=== PATIENT | male | born 1990 | race Hispanic/Latino ===

== ENCOUNTER 2018-05-20 17:13 | Emergency (ER) | payer SELFPAY ==
[~2018-05-20 17:13] MED LIST: ISOVUE-370 76%-LOCM 1 ML ONE; Iopamidol 370 76% 50 ML VIAL FS ONE
[2018-05-20] MEDS ORDERED: Metoclopramide HCl 10 MG/2 ML VIAL ONE (17:29)
[2018-05-20 18:06] LABS: #Lymphocytes 0.9 thou/uL (1.20-3.40); #Monocytes 0.3 thou/uL (0.11-0.59); #Neutrophils 9.9 thou/uL (1.40-6.50); %Eosinophils 0.1 % (0.0-10.0); %Lymphocytes 7.9 % (21.0-51.0); %Monocytes 2.7 % (0.0-10.0); %Neutrophils 89.3 % (42.0-75.0); Hemoglobin 12.5 g/dL (14.0-18.0); Mean Corpuscular HGB CONC 34.4 g/dL (32.0-36.0); Mean Corpuscular Hemoglobin 29.8 pg (27.0-31.0); Mean Corpuscular Volume 86.5 fL (78.0-98.0); Mean Platelet Volume 7.5 fL (7.4-10.4); Platelet Count 183 thou/uL (130-400); RBC Distribution Width 12.3 % (11.5-14.5); Red Blood Cell (RBC) Count 4.19 mill/uL (4.70-6.10); White Blood Cell (WBC) Count 11.1 thou/uL (4.8-10.8)
[2018-05-20 18:25] LABS: ALT (SGPT) 13 U/L (8-55); AST (SGOT) 12 U/L (5-34); Albumin 3.7 g/dL (3.5-5.0); Alkaline Phosphatase 91 U/L (40-150); Anion Gap 14 mmol/L (10-20); BUN (Urea Nitrogen) 43 mg/dL (8.9-20.6); Bilirubin, Total 0.6 mg/dL (0.2-1.2); Calc. Creatinine Clearance 0 mL/min (70-130); Calcium 8.9 mg/dL (7.8-10.44); Carbon Dioxide 24 mmol/L (22-29); Chloride 103 mmol/L (98-107); Estimated GFR-MDRD 90; Glucose 323 mg/dL (70-105); Lipase 10 U/L (8-78); Magnesium 1.9 mg/dL (1.6-2.6); Potassium 3.7 mmol/L (3.5-5.1); Protein, Total 6.7 g/dL (6.0-8.3); Sodium 137 mmol/L (136-145)
[2018-05-20] MEDS ORDERED: Ondansetron HCl/PF 4 MG/2 ML Vial ONE (18:31)
[2018-05-20 18:43] LABS: Base Excess-Venous 0.2 mmol/L (0 (+/- 2.5)); Bicarbonate (HCO3v) 23.4 mmol/L (1.0-85.0); CO2 Tension (PvCO2) 32.6 mmHg (41.0-51.0); Calcium, Ionized 1.04 mmol/L (1.12-1.32); Hemoglobin - Calc 12.3 g/dL (12.0-18.0); O2 Tension (PvO2) 93.2 mmHg (35.0-45.0); Potassium 3.7 mmol/L (3.4-4.7); T. Carbon Dioxide 24.4 mmol/L (1.0-85.0); pH (Venous) 7.465 (7.35-7.45); vO2 Saturation-calc 97.8 % (94-98)
[2018-05-20] MEDS ORDERED: Fentanyl 100 MCG/2 ML VIAL ONE (18:48)
--- NOTE | 2018-05-20 20:26 | CT ---
CT ABDOMEN AND PELVIS WITH IV CONTRAST: 05/20/18 Multiple axial tomograms obtained through the abdomen and pelvis with IV enhancement. Oral contrast w as administered. INDICATIONS: Abdominal pain. Right lower quadrant pain. The lung bases are clear. Liver, spleen and pancreas unremarkable. Adrenal glands normal. Kidneys unremarkable. There is mild distention of proximal jejunal loops. The more distal small bowel loops are normal darius lexa. The contrast opacifies the mid small bowel but does not opacify the distal small bowel or cecum. The appendix is identified and appears unremarkable. No evidence of appendicitis. The urinary bladder is distended. Prostate is mildly prominent for age. No adenopathy identified. IMPRESSION: 1. Nonspecific small bowel distention. This could represent enteritis or other nonspecific etiol ogy. 2. No evidence of appendicitis. 3. Urinary bladder distention. POS: [facility]
== END 2018-05-20 21:11 | disposition home or self-care (01) ==
LOC: ERS 17:13
DX: K52.9 Noninfective gastroenteritis and colitis, unspecified (principal); E10.9 Type 1 diabetes mellitus without complications; Z79.4 Long term (current) use of insulin
CPT/HCPCS: 36415; 36416; 74177; 80053; 82010; 82330; 82803; 83605; 83690; 83735; 85025; 96361; 96365; 96375; J2270; J2405; J2765; J3010

== ENCOUNTER 2018-09-25 18:58 | Emergency (ER) | payer SELFPAY ==
[~2018-09-25 18:58] MED LIST changes: -Iopamidol 370 76% 50 ML VIAL FS ONE
[2018-09-25 19:17] LABS: #Basophils 0.1 thou/uL (0.0-0.2); #Eosinphils 0.1 thou/uL (0.0-0.7); #Lymphocytes 1.5 thou/uL (1.20-3.40); #Monocytes 0.4 thou/uL (0.11-0.59); #Neutrophils 6.5 thou/uL (1.40-6.50); %Basophils 0.7 % (0.0-1.0); %Eosinophils 1.2 % (0.0-10.0); %Lymphocytes 17.6 % (21.0-51.0); %Monocytes 4.3 % (0.0-10.0); %Neutrophils 76.2 % (42.0-75.0); Mean Corpuscular HGB CONC 31.9 g/dL (32.0-36.0); Mean Corpuscular Hemoglobin 28.6 pg (27.0-31.0); Mean Corpuscular Volume 89.8 fL (78.0-98.0); Mean Platelet Volume 7.1 fL (7.4-10.4); Platelet Count 246 thou/uL (130-400); RBC Distribution Width 11.4 % (11.5-14.5); Red Blood Cell (RBC) Count 4.19 mill/uL (4.70-6.10); White Blood Cell (WBC) Count 8.5 thou/uL (4.8-10.8)
[2018-09-25 19:31] LABS: ALT (SGPT) 12 U/L (8-55); AST (SGOT) 17 U/L (5-34); Albumin 4.1 g/dL (3.5-5.0); Alkaline Phosphatase 84 U/L (40-150); Anion Gap 12 mmol/L (10-20); BUN (Urea Nitrogen) 20 mg/dL (8.9-20.6); Bilirubin, Total 0.4 mg/dL (0.2-1.2); Calc. Creatinine Clearance 0 mL/min (70-130); Calcium 9.4 mg/dL (7.8-10.44); Carbon Dioxide 25 mmol/L (22-29); Chloride 105 mmol/L (98-107); Estimated GFR-MDRD Greater than 90; Globulin 3.7 g/dL (2.4-3.5); Glucose 118 mg/dL (70-105); Lipase 27 U/L (8-78); Potassium 4.1 mmol/L (3.5-5.1); Protein, Total 7.8 g/dL (6.0-8.3); Sodium 138 mmol/L (136-145)
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
== END 2018-09-25 22:51 | disposition home or self-care (01) ==
LOC: ERS 18:58
DX: S22.42XA Multiple fractures of ribs, left side, initial encounter for closed fracture (principal); S90.32XA Contusion of left foot, initial encounter; E10.9 Type 1 diabetes mellitus without complications; V43.52XA Car driver injured in collision with other type car in traffic accident, initial encounter
CPT/HCPCS: 70450; 71260; 72125; 74177; 80053; 83690; 85025; 86850; 86900; 86901; 94760; 96360; 96361; G0390

== ENCOUNTER 2018-10-06 15:32 | Outpatient (CLI) | payer SELFPAY ==
--- NOTE | 2018-10-06 17:01 | RAD ---
PA AND LATERAL CHEST X-RAY 10/06/18 HISTORY: Closed fracture of multiple ribs on left side. COMPARISON: CT thorax on 09/25/18. FINDINGS: There is a nondisplaced fracture involving the posterior left 12th rib. Fractures involving the left posterior 10th and 11th ribs are less well delineated on this chest x-ray. The cardiac silhouette and pulmonary vasculature are within normal limits. The lungs are clear. No pneumothorax or pleural effu juanita is seen. IMPRESSION: 1. No acute cardiopulmonary process. 2. Nondisplaced posterior left 12th rib fracture. Fractures involving the left 10th and 11th rib s are less well delineated on this exam. POS: [facility]
== END 2018-10-06 15:33 | disposition home or self-care (01) ==
LOC: RAD 15:32
PROVIDERS: ATTEND Physician Assistant
DX: S22.42XD Multiple fractures of ribs, left side, subsequent encounter for fracture with routine healing (principal)
CPT/HCPCS: 71046

== ENCOUNTER 2019-01-31 22:58 | Emergency (ER) | payer SELFPAY ==
[2019-01-31 23:41] LABS: Base Excess-Venous 0.9 mmol/L (-2.0 to 3.0); Bicarbonate (HCO3v) 24.5 mmol/L (22.0-28.0); CO2 Tension (PvCO2) 34.8 mmHg (40.0-50.0); Calcium, Ionized 1.13 mmol/L (See Comments:); Chloride 112 mmol/L (98-107); Hemoglobin - Calc 12.7 g/dL (14.0-18.0); O2 Tension (PvO2) 108.3 mmHg (35.0-45.0); Potassium 3.2 mmol/L (3.5-5.1); Sodium 144 mmol/L (138-145); T. Carbon Dioxide 25.5 mmol/L (22.0-28.0); pH (Venous) 7.455 (7.320-7.430); vO2 Saturation-calc 98.5 % (60.0-85.0)
[2019-01-31 23:48] LABS: #Lymphocytes 1.3 thou/uL (1.20-3.40); #Monocytes 0.3 thou/uL (0.11-0.59); #Neutrophils 8.7 thou/uL (1.40-6.50); %Basophils 0.3 % (0.0-1.0); %Eosinophils 0.2 % (0.0-10.0); %Lymphocytes 12.8 % (21.0-51.0); %Monocytes 2.4 % (0.0-10.0); %Neutrophils 84.3 % (42.0-75.0); Hemoglobin 11.9 g/dL (14.0-18.0); Mean Corpuscular HGB CONC 33.4 g/dL (32.0-36.0); Mean Corpuscular Hemoglobin 28.8 pg (27.0-31.0); Mean Corpuscular Volume 86.4 fL (78.0-98.0); Mean Platelet Volume 7.3 fL (7.4-10.4); Platelet Count 233 thou/uL (130-400); RBC Distribution Width 12.1 % (11.5-14.5); Red Blood Cell (RBC) Count 4.14 mill/uL (4.70-6.10); White Blood Cell (WBC) Count 10.3 thou/uL (4.8-10.8)
--- NOTE | 2019-01-31 23:54 | RAD ---
AP CHEST: History: Epigastric and abdominal pain. Date: 01-31-19 Comparison: 10-06-18 FINDINGS: AP chest demonstrates the lungs to be well aerated. No evidence of active intrathoracic disease seen. No evidence of effusions, pneumonia, or pneumothorax seen. IMPRESSION: Unremarkable AP chest. POS: [facility]
[2019-01-31] MEDS ORDERED: Metoclopramide 10 MG/10 ML UDCUP ONE (23:55)
[2019-01-31] MEDS ORDERED: Metoclopramide HCl 10 MG/2 ML VIAL ONE (23:56)
[2019-02-01 00:05] LABS: Phosphorus 2.4 mg/dL (2.3-4.7)
[2019-02-01 00:05] LABS: Acetaminophen Less than 6.0 mcg/mL (10.0-30.0); Alcohol Less than 10 mg/dL (Less than 10); Salicylate Less than 8.0 mg/dL (15.0-30.0)
[2019-02-01 00:06] LABS: ALT (SGPT) 18 U/L (8-55); AST (SGOT) 18 U/L (5-34); Albumin 4.1 g/dL (3.5-5.0); Alkaline Phosphatase 116 U/L (40-150); Anion Gap 14 mmol/L (10-20); BUN (Urea Nitrogen) 19 mg/dL (8.9-20.6); Bilirubin, Total 0.6 mg/dL (0.2-1.2); Calc. Creatinine Clearance 0 mL/min (70-130); Calcium 9.4 mg/dL (7.8-10.44); Carbon Dioxide 23 mmol/L (22-29); Chloride 107 mmol/L (98-107); Estimated GFR-MDRD Greater than 90; Globulin 3.4 g/dL (2.4-3.5); Glucose 234 mg/dL (70-105); Lipase 8 U/L (8-78); Potassium 3.3 mmol/L (3.5-5.1); Protein, Total 7.5 g/dL (6.0-8.3); Sodium 141 mmol/L (136-145)
[2019-02-01 01:03] LABS: Bilirubin Negative (Negative); Blood, Urine Negative (Negative); Clarity CLEAR (Clear); Glucose, Urine (Dipstick) >=1000 mg/dL (Negative); Leukocyte Negative (Negative); Nitrite Negative (Negative); Protein, Urine (Dipstick) Negative (Neg-Trace); Specific Gravity, Urine 1.022 (1.002-1.036); Urobilinogen 0.2 mg/dL (0.2-1.0); pH, Urine 6.5 (5.0-9.0)
[2019-02-01 01:10] LABS: Medtox Reader # READER 4
[2019-02-01 01:11] LABS: Amphetamine Not Detected (NotDetected); Barbiturates Screen Not Detected (NotDetected); Benzodiazepine Screen Not Detected (NotDetected); Cocaine Metabolite Screen Not Detected (NotDetected); Medtox Control Line Valid? VALID (VALID); Methadone Not Detected (NotDetected); Methamphetamine Not Detected (NotDetected); Opiate Screen Not Detected (NotDetected); Oxycodone Screen Not Detected (NotDetected); Phencyclidine (PCP) Not Detected (NotDetected); THC/Cannabinoid Screen Not Detected (NotDetected); Tricyclic Screen Not Detected (NotDetected)
[2019-02-01] MEDS ORDERED: Morphine 4 MG/ML VIAL ONE (01:24)
[2019-02-01] MEDS ORDERED: Mag-Al 1200 mg/1200 mg/30 ML UDCUP ONE (01:37)
[2019-02-01] MEDS ORDERED: Lidocaine Viscous Sol 2% 15 ml UD Cup ONE (01:37)
== END 2019-02-01 02:56 | disposition home or self-care (01) ==
LOC: ERS 22:58
DX: R10.13 Epigastric pain (principal); R11.2 Nausea with vomiting, unspecified; E10.9 Type 1 diabetes mellitus without complications; Z79.4 Long term (current) use of insulin
CPT/HCPCS: 36415; 36416; 71045; 80053; 80306; 80307; 81003; 82010; 82330; 82803; 83690; 83735; 84100; 84484; 85025; 87086; 93005; 96360; 96374; 96375; J2270; J2765; J8597

== ENCOUNTER 2019-02-06 20:49 | Emergency (ER) | payer SELFPAY ==
[2019-02-06] MEDS ORDERED: Adacel (T-DAP) 0.5 ML SYRINGE ONE (21:35)
[2019-02-06] MEDS ORDERED: Ciprofloxacin 500 MG TAB ONE (22:26)
[2019-02-06] MEDS ORDERED: Lidocaine 1% (PF) 30 ML VIAL ONE (22:29)
[2019-02-06] MEDS ORDERED: cefTRIAXone\\ROCEPHIN 1 GM VIAL ONE (22:29)
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
== END 2019-02-06 23:07 | disposition home or self-care (01) ==
LOC: ERS 20:49
DX: S91.331A Puncture wound without foreign body, right foot, initial encounter (principal); E10.9 Type 1 diabetes mellitus without complications; W21.31XA Struck by shoe cleats, initial encounter
CPT/HCPCS: 90471; 90715; 96372; J0696; J2001

== ENCOUNTER 2019-02-08 08:29 | Emergency (ER) | payer OTHER, SELFPAY | END 2019-02-08 09:22 | disposition home or self-care (01) | LOC: ERS 08:29 | DX: Z48.817 Encounter for surgical aftercare following surgery on the skin and subcutaneous tissue (principal); E10.9 Type 1 diabetes mellitus without complications; Z79.899 Other long term (current) drug therapy | CPT/HCPCS: 99281 ==

== ENCOUNTER 2019-03-27 23:06 | Emergency (ER) | payer OTHER, SELFPAY ==
[2019-03-27] MEDS ORDERED: HYDROcodone/Acetaminophen 10/325 mg Tablet ONE (23:46)
--- NOTE | 2019-03-27 23:48 | RAD ---
Exam: 3 views lumbar spine HISTORY: Pain. Started 2 days ago. Pain is exacerbated by walking and moving. FINDINGS: 5 lumbar type vertebral bodies. Vertebral body height is maintained. No fracture. Disc spac e heights are preserved. No spondylolisthesis. No spondylolysis. IMPRESSION: Unremarkable 3 views lumbar spine. If there is concern, nonemergent MRI of the lumbar spi ne.
[2019-03-28 00:55] LABS: Bilirubin Negative (Negative); Blood, Urine Negative (Negative); Clarity CLEAR (Clear); Glucose, Urine (Dipstick) >=1000 mg/dL (Negative); Leukocyte Negative (Negative); Nitrite Negative (Negative); Protein, Urine (Dipstick) Negative (Neg-Trace); Specific Gravity, Urine 1.036 (1.002-1.036); Urobilinogen 0.2 mg/dL (0.2-1.0)
[2019-03-28 00:57] LABS: #Monocytes 0.6 thou/uL (0.11-0.59); #Neutrophils 9.6 thou/uL (1.40-6.50); %Basophils 0.1 % (0.0-1.0); %Eosinophils 0.3 % (0.0-10.0); %Lymphocytes 8.7 % (21.0-51.0); %Monocytes 5.7 % (0.0-10.0); %Neutrophils 85.3 % (42.0-75.0); Hemoglobin 10.7 g/dL (14.0-18.0); Mean Corpuscular HGB CONC 32.5 g/dL (32.0-36.0); Mean Corpuscular Hemoglobin 28.2 pg (27.0-31.0); Mean Corpuscular Volume 86.6 fL (78.0-98.0); Mean Platelet Volume 7.1 fL (7.4-10.4); Platelet Count 249 thou/uL (130-400); RBC Distribution Width 11.6 % (11.5-14.5); Red Blood Cell (RBC) Count 3.79 mill/uL (4.70-6.10); White Blood Cell (WBC) Count 11.3 thou/uL (4.8-10.8)
[2019-03-28 01:18] LABS: ALT (SGPT) 10 U/L (8-55); AST (SGOT) 11 U/L (5-34); Alkaline Phosphatase 102 U/L (40-150); Anion Gap 12 mmol/L (10-20); BUN (Urea Nitrogen) 24 mg/dL (8.9-20.6); Bilirubin, Total 0.6 mg/dL (0.2-1.2); Calc. Creatinine Clearance 0 mL/min (70-130); Calcium 9.5 mg/dL (7.8-10.44); Carbon Dioxide 25 mmol/L (22-29); Chloride 105 mmol/L (98-107); Estimated GFR-MDRD 81; Globulin 3.4 g/dL (2.4-3.5); Glucose 379 mg/dL (70-105); Potassium 4.1 mmol/L (3.5-5.1); Protein, Total 7.4 g/dL (6.0-8.3); Sodium 138 mmol/L (136-145)
== END 2019-03-28 02:11 | disposition home or self-care (01) ==
LOC: ERS 23:06
DX: M54.5 Low back pain (principal); E10.65 Type 1 diabetes mellitus with hyperglycemia; R11.2 Nausea with vomiting, unspecified
CPT/HCPCS: 36415; 72100; 80053; 81003; 85025; 85652; 96360

== ENCOUNTER 2019-04-13 10:45 | Inpatient (IN) | payer SELFPAY ==
[2019-04-13 12:37] LABS: #Eosinphils 0.1 thou/uL (0.0-0.7); #Monocytes 0.4 thou/uL (0.11-0.59); %Basophils 0.4 % (0.0-1.0); %Lymphocytes 26.8 % (21.0-51.0); %Monocytes 4.8 % (0.0-10.0); Hemoglobin 10.1 g/dL (14.0-18.0); Mean Corpuscular HGB CONC 33.1 g/dL (32.0-36.0); Mean Corpuscular Hemoglobin 28.5 pg (27.0-31.0); Mean Corpuscular Volume 86.3 fL (78.0-98.0); Mean Platelet Volume 6.9 fL (7.4-10.4); Platelet Count 433 thou/uL (130-400); RBC Distribution Width 11.4 % (11.5-14.5); Red Blood Cell (RBC) Count 3.55 mill/uL (4.70-6.10); White Blood Cell (WBC) Count 7.4 thou/uL (4.8-10.8)
--- NOTE | 2019-04-13 12:55 | RAD ---
RIGHT FOOT 3 VIEWS: HISTORY: Right foot pain FINDINGS: Comparison is made with exam of 02/06/2019. There is interval distraction of the fracture involving the base of the fifth metatarsal since the la st exam. Healing fractures of the distal aspect of the third and fourth metatarsals are seen with progressive healing.
[2019-04-13 12:59] LABS: ALT (SGPT) 13 U/L (8-55); AST (SGOT) 16 U/L (5-34); Albumin 3.7 g/dL (3.5-5.0); Alkaline Phosphatase 98 U/L (40-150); Anion Gap 13 mmol/L (10-20); BUN (Urea Nitrogen) 32 mg/dL (8.9-20.6); Bilirubin, Total 0.2 mg/dL (0.2-1.2); Calc. Creatinine Clearance 0 mL/min (70-130); Calcium 9.6 mg/dL (7.8-10.44); Carbon Dioxide 26 mmol/L (22-29); Chloride 103 mmol/L (98-107); Estimated GFR-MDRD 90; Globulin 3.9 g/dL (2.4-3.5); Glucose 284 mg/dL (70-105); Protein, Total 7.6 g/dL (6.0-8.3); Sodium 137 mmol/L (136-145)
--- NOTE | 2019-04-13 14:53 | HP ---
HISTORY OF PRESENT ILLNESS: This is a 28-year-old male, who has a past medical history of type 1 diabetes, insulin dependent since age 16, who reports that he stepped on a nail while at [employer] back in January. This went through his shoe. He was treated and released from our facility in the emergency department with antibiotics of Cipro and Augmentin. He was instructed to follow up with his primary care physician. At the ER visit, it was found the patient had a nondisplaced fracture of the fifth metatarsal at the base. This is where the nail entered his foot. Since that time, the patient has reported worsening pain and redness to the foot. He has been weightbearing as tolerated in an orthopedic boot and orthopedic shoe, of which he has both. He states that sugars have been running a little higher than normal. In the last week, he presented to his primary care doctor's office and was placed on Keflex. After the redness did not seem to be improving, he presented to the Emergency Department for further evaluation. He denies any fever or chills. He denies any nausea or vomiting. He denies any current drainage from the wound. The patient was further evaluated. Labs were obtained and x-rays, which show displacement of the fracture site with distraction. We have been asked to see the patient for this reason. PAST MEDICAL HISTORY: Significant for type 1 diabetes. PAST SURGICAL HISTORY: No surgical history. SOCIAL HISTORY: The patient lives at home with family. He denies any alcohol use, drug use, or tobacco use. ALLERGIES: NO KNOWN DRUG ALLERGIES. REVIEW OF SYSTEMS: The patient reports pain in the right foot. No drainage. There is some redness. Denies numbness or tingling. Otherwise, 10-point review of systems conducted and otherwise negative except for stated above. PHYSICAL EXAMINATION: Includes; VITAL SIGNS: Blood pressure 101/70, pulse of 99, respiratory rate of 19 and nonlabored, temperature of 98.9, and O2 saturation is 96% on room air. GENERAL: The patient is awake and alert. He is in no apparent distress. He is pleasant and cooperative with exam today. His mother is present at bedside. HEENT: Head is normocephalic and atraumatic. NECK: Supple. Trachea midline. RESPIRATORY: Breathing is nonlabored. EXTREMITIES: Evaluation of the right lower extremity shows some soft tissue swelling pronounced around the lateral aspect of the foot near the base of the fifth metatarsal. There is some surrounding erythema, which is faint. There does appear to be an old puncture site. No drainage from the site. The patient is able to move all toes. Distal neurovascular status intact. Of note, there is what appears to be some slight fluctuance at the pronounced swelling on the lateral aspect of the foot. LABORATORY DATA: Labs were reviewed today, which show a white blood cell count of 7.4, hemoglobin of 10.1, hematocrit 30.6, and platelet count of 433. His ESR was greater within 130 and CRP 6.87. RADIOGRAPHIC IMAGING: Reviewed with Dr. Isaac today, shows evidence of a displaced and distracted fifth metatarsal fracture with nonunion. Original x- rays also reviewed from 02/06/2019, which show a nondisplaced base of the fifth metatarsal fracture. 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 PLAN: At this time, we will proceed with admitting the patient. He will be admitted to the Orthopedic Service. He is n.p.o. We will plan for irrigation and debridement today in the operating room. We will eradicate this infection before proceeding with hardware placement for fracture site fixation. The patient verbalizes this plan of care and understanding. We will proceed with hospital admission and surgery this afternoon. Job ID: [id number] [facility]
[2019-04-13] MEDS ORDERED: HYDROcodone/Acetaminophen 5/325 mg Tablet ONE (21:24)
[2019-04-13] MEDS ORDERED: Insulin Regular 300 UNITS/3 ML VIAL SC PRN (21:53)
[2019-04-13] MEDS ORDERED: Dextrose 5% in Water 1,000 ML IV PRN (21:53)
[2019-04-13] MEDS ORDERED: Dextrose 50% Abboject 50 ML SYRINGE IVP PRN (21:53)
[2019-04-13 23:16] VITALS: BMI 17.6
[2019-04-14 05:49] LABS: #Eosinphils 0.1 thou/uL (0.0-0.7); #Lymphocytes 2.3 thou/uL (1.20-3.40); #Monocytes 0.3 thou/uL (0.11-0.59); #Neutrophils 2.3 thou/uL (1.40-6.50); %Basophils 0.9 % (0.0-1.0); %Eosinophils 2.1 % (0.0-10.0); %Lymphocytes 45.5 % (21.0-51.0); %Neutrophils 45.6 % (42.0-75.0); Hemoglobin 9.8 g/dL (14.0-18.0); Mean Corpuscular HGB CONC 32.5 g/dL (32.0-36.0); Mean Corpuscular Hemoglobin 28.3 pg (27.0-31.0); Mean Platelet Volume 6.8 fL (7.4-10.4); Platelet Count 421 thou/uL (130-400); RBC Distribution Width 11.5 % (11.5-14.5); Red Blood Cell (RBC) Count 3.47 mill/uL (4.70-6.10); White Blood Cell (WBC) Count 5.1 thou/uL (4.8-10.8)
[2019-04-14 06:13] LABS: ALT (SGPT) 11 U/L (8-55); AST (SGOT) 11 U/L (5-34); Albumin 3.2 g/dL (3.5-5.0); Alkaline Phosphatase 80 U/L (40-150); Anion Gap 11 mmol/L (10-20); BUN (Urea Nitrogen) 22 mg/dL (8.9-20.6); Bilirubin, Total Less than 0.2 mg/dL (0.2-1.2); Calc. Creatinine Clearance 114 mL/min (70-130); Calcium 9.4 mg/dL (7.8-10.44); Carbon Dioxide 26 mmol/L (22-29); Chloride 106 mmol/L (98-107); Estimated GFR-MDRD Greater than 90; Globulin 4.1 g/dL (2.4-3.5); Glucose 251 mg/dL (70-105); Potassium 4.1 mmol/L (3.5-5.1); Protein, Total 7.3 g/dL (6.0-8.3); Sodium 139 mmol/L (136-145)
[2019-04-14] MEDS ORDERED: Dextrose 5% in Water 1,000 ML IV PRN (06:32)
[2019-04-14] MEDS ORDERED: Insulin Regular 300 UNITS/3 ML VIAL SC PRN (06:32)
[2019-04-14] MEDS ORDERED: Sodium Chloride 0.9% 1,000 ML IV SCH (09:15)
[2019-04-14] MEDS ORDERED: Insulin Glargine 8 UNITS in Pre-Filled Syringe 1 EACH SC SCH (10:15)
[2019-04-14] MEDS ORDERED: D5 1/2 NS w/20 mEq KCL 1,000 ML IV SCH (10:15)
--- NOTE | 2019-04-14 10:19 | CON ---
DATE OF CONSULTATION: 04/14/2019 REASON FOR CONSULTATION: Medical management. HISTORY OF PRESENT ILLNESS: The patient is a 28-year-old male with diabetes mellitus type 1, got admitted yesterday for infected nonunion site, fifth metatarsal fracture. Hospitalist Team was consulted for diabetes type 1 management. He is currently n.p.o. He denies any nausea, vomiting, or abdominal pain. No fever or chills reported. CURRENT MEDICATIONS: Reviewed. PHYSICAL EXAMINATION: VITAL SIGNS: Temperature 98, pulse rate of 98, respirations 14, blood pressure 97/61, and O2 saturation of 98% on room air. GENERAL: A 28-year-old male, thin built, in no apparent distress. LUNGS: Clear to auscultation bilaterally. No wheezing, rales, or rhonchi. HEART: S1 and S2 present. Regular rate and rhythm. No rubs or gallops appreciated. ABDOMEN: Soft, nontender. Bowel sounds present. No rebound or guarding. EXTREMITIES: No edema or calf tenderness. There is some erythema over his lateral aspect of the foot. SKIN: As discussed above. LYMPH NODES: No palpable lymph nodes in the neck or groin. NEUROLOGIC: Grossly nonfocal. Moves all 4 extremities. Power was 5/5 in all extremities. PSYCHIATRIC: Alert, awake, and oriented x3. Normal affect. LABORATORY FINDINGS: WBC 5.1 with hemoglobin 9.8, hematocrit 30.2, and platelet count 421. Chemistry showed sodium 139, potassium 4.1, chloride 106, bicarb 26, BUN 22, and creatinine 0.79. LFTs in normal range. Albumin 3.2. Blood cultures have been negative. IMAGING DATA: X-ray of the foot by my review showed distraction of the fracture involving the base of the fifth metatarsal. IMPRESSION: 1. 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 Management per Orthopedic Service. 2. Diabetes type 1. The patient currently takes Lantus insulin 11 units 3 times a day per the patient's report. He denies any nausea, vomiting, or abdominal pain. His bicarbonate is normal at this time. He has been started on IV fluids. He is at high risk of diabetic ketoacidosis during the perioperative period. We will start him on IV fluids containing dextrose along with low-dose Lantus. He takes total of 33 units of Lantus every day. We will give him a small dose of Lantus for now. We will start him on 10 units b.i.d. during the postoperative period. We will discontinue IV fluids with dextrose when he is able to tolerate p.o. We will monitor labs on a daily basis. Monitor for symptoms of diabetic ketoacidosis. Thank you, Dr. Isaac, for this consultation. We will follow with you. Job ID: [id number]
[2019-04-14] MEDS ORDERED: Neomycin-Polymyxin 1 ML AMP ONE (11:43)
[2019-04-14] MEDS ORDERED: PROPOFOL 200 MG/20 ML VIAL ONE (13:39)
[2019-04-14] MEDS ORDERED: Ondansetron PF 4 MG/2 ML Vial ONE (13:39)
[2019-04-14] MEDS ORDERED: ePHEDrine 50 MG/ML VIAL ONE (13:39)
[2019-04-14] MEDS ORDERED: HYDROcodone/Acetaminophen 7.5/325 mg Tablet PO PRN ×2 (13:50)
[2019-04-14] MEDS ORDERED: Fentanyl 100 MCG/2 ML VIAL SLOW IVP PRN (13:51)
[2019-04-14] MEDS ORDERED: cefTRIAXone\\ROCEPHIN 1 GM in Sodium Chloride 0.9% 100 ML IVPB SCH (17:00)
[2019-04-14] MEDS: Insulin Regular 300 UNITS/3 ML VIAL SC PRN (17:27)
[2019-04-14] MEDS: cefTRIAXone\\ROCEPHIN 1 GM in Sodium Chloride 0.9% 100 ML IVPB SCH ×2 (17:27→17:36)
[2019-04-14] MEDS: Sodium Chloride 0.9% 1,000 ML IV SCH (17:27)
[2019-04-14] MEDS: Insulin Glargine 10 UNITS in Pre-Filled Syringe 1 EACH SC SCH (21:23)
[2019-04-14] MEDS: Communication Order-Pharmacy FS SCH (21:29)
--- NOTE | 2019-04-14 22:35 | OP ---
DATE OF PROCEDURE: 04/14/2019 PREOPERATIVE DIAGNOSES: 1. Avulsion fracture, right 5th metatarsal base. 2. Possible deep infection. POSTOPERATIVE DIAGNOSIS: Avulsion fracture, right 5th metatarsal base. PROCEDURE PERFORMED: Excision of right 5th metatarsal proximal tubercle. ANESTHESIA: General. TOURNIQUET TIME: 39 minutes at 300 mmHg. IMPLANTS: None. DRAINS: None. SPECIMEN: Swab sent for Gram stain, culture, and sensitivity. OUTCOME: Wound closure. INDICATIONS: The patient is a 28-year-old type 1 diabetic who reports that he stepped on a nail at home back in January. At that time, it appears that he sustained a nondisplaced fracture at the base of the 5th metatarsal. He was also placed on ciprofloxacin and Augmentin by the emergency department following this injury. The patient over the 48 hours prior to this admission had some increased redness and increased swelling at the base of the 5th metatarsal. He had been started on Keflex by his primary care physician, however, no labs had been obtained. On evaluation, he was found to have elevated sedimentation and C-reactive protein, although a normal white count, but did have swelling at the base of the 5th metatarsal and as such, admitted for anticipated incision and drainage and exploration and if possible repair of the fracture if there was no evidence of infection. The patient has not had any sweats or fevers. The patient now scheduled for exploration of this lateral foot. DESCRIPTION OF PROCEDURE: The patient was brought to the operating room and a time-out performed followed by induction of general anesthesia. Next, he was positioned supine on the OR table and a sterile prep and drape were performed of the right lower extremity. Next, the limb was exsanguinated with Esmarch bandage, tourniquet was inflated to 300 mmHg. A vertical incision was made along the path of the 5th metatarsal and heading just proximal to this bone. After skin was sharply incised, dissection was carried down bluntly and at this point, just some minor clear serous fluid came from the fracture nonunion site. No purulent material was encountered. A swab was sent for Gram stain, culture and sensitivity. The fibrinous tissue at the fracture gap was removed with a rongeur. The tubercle that had avulsed was found to be essentially dysvascular. There was absolutely no blood supply to this fragment. This combined with his history of diabetes, was felt that he would not be able to heal the fracture even if stabilized as such. This small fragment of bone was excised. The wound was then irrigated with 3 L normal saline with antibiotic irrigant added. At the completion of this, was then closed primarily with 2-0 Vicryl deep followed by nylon for the skin. Xeroform gauze, Webril, and a posterior fiberglass splint were applied to the foot and then tourniquet was let down with total time of 39 minutes. The patient was then transferred to recovery room in stable condition. There were no complications. He tolerated the procedure well. We will await the final cultures before deciding on disposition. Job ID: [id number]
[2019-04-15] MEDS: Sodium Chloride 0.9% 1,000 ML IV SCH (02:12)
[2019-04-15] MEDS: Insulin Glargine 10 UNITS in Pre-Filled Syringe 1 EACH SC SCH (09:40)
--- NOTE | 2019-04-15 10:08 | PDOC.PN ---
- Subjective Encounter Start Date: 04/15/19 Encounter Start Time: 10:06 - Objective MAR Reviewed: Yes Vital Signs & Weight: Vital Signs (12 hours) Temp Pulse Resp BP Pulse Ox 04/15/19 07:15 98.7 F 93 16 114/74 89 L 04/15/19 04:00 98.5 F 103 H 16 99/63 92 L 04/15/19 00:00 98.5 F 93 16 115/76 99 Weight Weight 126 lb 4.8 oz I&O: 04/14/19 04/15/19 04/16/19 06:59 06:59 06:59 Intake Total 200 2049 Balance 200 2049 Result Diagrams: 04/14/19 04:29 04/14/19 04:29 Additional Labs: Accuchecks 04/15/19 04/15/19 04/14/19 05:04 02:17 21:14 POC Glucose 119 H 90 175 H 04/14/19 16:42 POC Glucose 160 H Phys Exam - Physical Examination Constitutional: NAD Respiratory: no wheezing, no rhonchi Cardiovascular: RRR, no rub Gastrointestinal: soft, non-tender, positive bowel sounds Musculoskeletal: no edema Dx/Plan (1) DM type 1 (diabetes mellitus, type 1) Status: Chronic (2) Anemia, normocytic normochromic Code(s): D64.9 - ANEMIA, UNSPECIFIED Status: Chronic - Plan cont current plan of care, plan discussed w/ family, DVT proph w/SCDs Cont current dose of Lantus with sliding scale -: Educated on symptoms of DKA Review of Systems - Review of Systems Respiratory: negative: Cough, Dry, Shortness of Breath, Hemoptysis, SOB with Excertion, Pleuritic Pain, Sputum, Wheezing Cardiovascular: negative: chest pain, palpitations, orthopnea, paroxysmal nocturnal dyspnea, edema, light headedness, other - Medications/Allergies Allergies/Adverse Reactions: Allergies Allergy/AdvReac Type Severity Reaction Status Date / Time No Known Drug Allergies Allergy Verified 04/14/19 04:52 Medications: Current Medications Hydrocodone Bitart/Acetaminophen ([place] 7.5/325) 1 tab PO Q4H PRN PRN Reason: Mild Pain (1-3) Hydrocodone Bitart/Acetaminophen ([place] 7.5/325) 2 tab PO Q4H PRN PRN Reason: Moderate Pain (4-6) Dextrose/Water (Dextrose 50%) 25 gm IVP ONE PRN PRN Reason: HYPOGLYCEMIA PROTOCOL Stop: 05/13/19 21:54 Fentanyl (Sublimaze) 50 mcg SLOW IVP Q2H PRN PRN Reason: Pain Glucagon (Glucagon) 1 mg SC ONE PRN PRN Reason: HYPOGLYCEMIA PROTOCOL Stop: 05/13/19 21:54 Dextrose/Water (D5w) 1,000 mls @ 0 mls/hr IV INF PRN PRN Reason: HYPOGLYCEMIA PROTOCOL Insulin Glargine 10 units/ (Miscellaneous Medication) 0.1 mls @ 0 mls/hr SC BID [facility] Last Admin: 04/15/19 09:40 Dose: 0.1 mls Sodium Chloride (Normal Saline 0.9%) 1,000 mls @ 100 mls/hr IV .Q10H [facility] Last Admin: 04/15/19 02:12 Dose: 1,000 mls Ceftriaxone Sodium 1 gm/ (Sodium Chloride) 100 mls @ 200 mls/hr IVPB 1700 [facility] Last Admin: 04/14/19 17:36 Dose: 100 mls Insulin Human Regular (Humulin R) 0 units SC .MILD SLIDING SCALE PRN PRN Reason: Mild Correctional Scale Last Admin: 04/14/19 17:27 Dose: 2 unit Insulin Human Regular (Humulin R) 0 units SC .BEDTIME SLIDING SC PRN PRN Reason: Bedtime Correctional Scale Last Admin: 04/14/19 09:26 Dose: 2 unit Miscellaneous Information (Communication Order-Pharmacy) 1 each FS 1930 [facility] Last Admin: 04/14/19 21:29 Dose: Not Given Sodium Chloride (Flush - Normal Saline) 10 ml IVF PRN PRN PRN Reason: Saline Flush
--- NOTE | 2019-04-15 10:39 | PRG ---
DATE OF SERVICE: 04/15/2019 SUBJECTIVE: Issac is a 28-year-old male, who is postop day 1 from a right proximal fifth metatarsal base excision. Cultures demonstrated presumptive enterococcus, which would be consistent with his puncture wound and I have consulted Dr. Young for evaluation. He is up with therapy and his pain is controlled. OBJECTIVE: VITAL SIGNS: Temperature 98.5, pulse 93, respiratory rate 16, O2 saturation is 99% on room air, and blood pressure is 115/76. GENERAL: He is alert and oriented to person, place, time, and situation. Nonfocal. SKIN: His incision appears dry. There is no strikethrough and he is wearing his splint, ambulating with crutches in a nonweightbearing fashion. IMPRESSION: 1. Postop day 1, right foot fifth metatarsal tip/base excision/ostectomy. 2. Diabetes type 1, poorly controlled. PLAN: Consult Infectious Disease for evaluation and antibiotic recommendations for outpatient treatment. We will see the patient in the morning. Job ID: [id number]
[2019-04-15] MEDS: Insulin Regular 300 UNITS/3 ML VIAL SC PRN (15:58)
[2019-04-15 16:08] VITALS: BP 92/57; TEMP 97.9
--- NOTE | 2019-04-15 18:26 | DIS ---
DATE OF ADMISSION: 04/13/2019 DATE OF DISCHARGE: 04/15/2019 PREOPERATIVE DIAGNOSES: 1. Avulsion fracture, right fifth metatarsal base. 2. Possible deep infection. POSTOPERATIVE DIAGNOSES: 1. Avulsion fracture, right fifth metatarsal base. 2. Possible deep infection. PROCEDURE PERFORMED: Excision of right fifth metatarsal proximal tubercle. BRIEF HOSPITAL COURSE: This is a 28-year-old male, type 1 diabetic, who reports that he stepped on a nail at [employer] back in January. At that time, it also appears he sustained a nondisplaced fracture of the base of the fifth metatarsal. He was placed on Cipro and Augmentin by the emergency department following his injury. The patient over the preceding days prior to this admission had some increased redness and increased swelling at the base of the fifth metatarsal. He presented back to his primary care doctor who started him on Keflex. However, no labs have been obtained. On our evaluation, he was found to have elevated sedimentation and C-reactive protein, although normal white cell count, but did have swelling at the base of the fifth metatarsal. As such, admitted for anticipated incision and drainage and exploration and if possible, repair of the fracture if there was no deep evidence of infection. Intraoperatively, the patient was not found to have any signs of infection, however, a deep infection cannot be completely excluded. A repair of this fracture site was done by suture material. No implants were used. Postoperatively, the patient was admitted to [place] [address], where he received postoperative antibiotics as well as analgesics and worked with Physical Therapy to crutch train and remain nonweightbearing to the right lower extremity. He did well postoperatively and on postop day 1, has been discharged home. DISCHARGE DISPOSITION: Home. DISCHARGE CONDITION: Stable. DISCHARGE INSTRUCTIONS: The patient will remain nonweightbearing on the right lower extremity with the splint intact until followup in our office in 2 weeks for re-evaluation and removal of sutures or moise. DISCHARGE MEDICATIONS: See MAR. Job ID: [id number]
--- NOTE | 2019-04-15 23:07 | CON ---
DATE OF CONSULTATION: REASON FOR CONSULTATION: Evaluate positive culture results from orthopedic surgery intervention. HISTORY OF PRESENT ILLNESS: A 28-year-old who was actually in [employer] buying some supplies when he stepped on a nail that was on the floor in one of the halls of the store. He otherwise has type 1 diabetes mellitus. The nail went through his shoe and he was given Cipro and Augmentin. He continued with pain in the foot and he eventually was admitted and there was displaced and distracted 5th metatarsal fracture with nonunion. Dr. Isaac performed excision of the fifth metatarsal proximal tubercle. There was some serous fluid, but no purulent material. Sub-fibrinous tissue and fracture gap removed with the rongeur. The tubercle was avascular and this was removed. The wound was irrigated and then closed, splint placed. Cultures yielded findings noted below. Currently, he denies any headache, visual symptoms, sore throat, odynophagia, dysphagia, no cough or sputum production, chest pain, abdominal pain or diarrhea. No genitourinary symptoms, no other joint symptoms. PAST MEDICAL HISTORY: Type 1 diabetes. PAST SURGICAL HISTORY: Negative. SOCIAL HISTORY: Never smoker. No drug use. No alcoholic beverage use. ALLERGIES: NONE. FAMILY HISTORY: Noncontributory. CURRENT MEDICATIONS: 1. [place]. 2. Rocephin. 3. Sublim[place]. 4. Insulin. PHYSICAL EXAMINATION: VITAL SIGNS: Essentially normal except for mild tachycardia. SKIN: With the right foot postop findings, peripheral IV access, no [place] catheter. HEAD: Was not remarkable. NECK: Supple. LUNGS: Symmetric. Clear breath sounds. S1-S2 regular rate. ABDOMEN: Soft, not distended or tender. No ascites. No bladder distention. Extremities: No other joint inflammatory activity. He moves extremities equally with limitations imposed by the fracture and the postop state. LABORATORY DATA: White cell count 7.4, and 5.1, hemoglobin 9.8, platelets 421. Chemistry with a creatinine of 0.79. Liver profile normal. Albumin 3.2. Cultures from the site showed presumptive Enterococcus species. This was in rare amounts, moderate WBCs seen. ASSESSMENT: Type 1 diabetes with perforating injury to the foot and a fracture of the right fifth metatarsal base. The Enterococcus faecalis could represent contamination of the sample, but we will go ahead and give him 4 weeks of oral Augmentin. We will follow up the results of the pathology from the bone sample that was submitted. Follow up in the clinic in about 2 or 3 weeks. Job ID: [id number]
== END 2019-04-15 17:25 | disposition home or self-care (01) | DRG 629 ==
LOC: ERS 10:45 → SURG A 21:07
PROVIDERS: ADMIT Orthopaedic Surgery; ATTEND Orthopaedic Surgery
PROC: 0QBN0ZZ Excision of Right Metatarsal, Open Approach (ICD-10-PCS; principal; 2019-04-14)
DX: E10.69 Type 1 diabetes mellitus with other specified complication (principal); M86.8X7 Other osteomyelitis, ankle and foot; S92.351A Displaced fracture of fifth metatarsal bone, right foot, initial encounter for closed fracture; D64.9 Anemia, unspecified; B95.2 Enterococcus as the cause of diseases classified elsewhere; E10.65 Type 1 diabetes mellitus with hyperglycemia; W45.0XXA Nail entering through skin, initial encounter; Y92.89 Other specified places as the place of occurrence of the external cause
CPT/HCPCS: 36415; 36416; 80053; 83605; 85025; 85652; 86140; 87040; 87070; 87077; 87186; 87205; 96360; 96361; J0696; J1815; J1825; J2405; J2704; J3490

== ENCOUNTER 2019-09-04 18:37 | Inpatient (IN) | payer SELFPAY, OTHER ==
[2019-09-04 19:03] LABS: Hemoglobin 10.8 g/dL (14.0-18.0); Mean Corpuscular HGB CONC 33.4 g/dL (32.0-36.0); Mean Platelet Volume 7.8 fL (7.4-10.4); Platelet Count 161 thou/uL (130-400); RBC Distribution Width 13.4 % (11.5-14.5); Red Blood Cell (RBC) Count 3.72 mill/uL (4.70-6.10)
[2019-09-04 19:21] LABS: Band 21 % (5-11); Dohle Bodies SLIGHT; Lymphocytes 6 % (21-51); MDiff Complete? YES; Metamyelocyte 1 % (0-0); Monocytes 1 % (0-10); Neutrophil 71 % (42-75); Platelet Morphology Comment Appears Adequate; Polychromasia SLIGHT = 2-3 cells (100X) (0-2/hpf); Vacuoles SLIGHT
[2019-09-04 19:25] LABS: ALT (SGPT) 33 U/L (8-55); AST (SGOT) 40 U/L (5-34); Albumin 3.1 g/dL (3.5-5.0); Alkaline Phosphatase 92 U/L (40-110); Anion Gap 12 mmol/L (10-20); BUN (Urea Nitrogen) 33 mg/dL (8.9-20.6); Calc. Creatinine Clearance 0 mL/min (70-130); Calcium 8.6 mg/dL (7.8-10.44); Carbon Dioxide 25 mmol/L (22-29); Chloride 102 mmol/L (98-107); Estimated GFR-MDRD Greater than 90; Globulin 2.9 g/dL (2.4-3.5); Glucose 174 mg/dL (70-105); Potassium 3.9 mmol/L (3.5-5.1); Sodium 135 mmol/L (136-145)
--- NOTE | 2019-09-04 19:31 | RAD ---
EXAM: Single view of the chest HISTORY: Abdominal pain and fever COMPARISON: 01/31/2019 FINDINGS: Single view of the chest shows a normal sized cardiomediastinal silhouette. There is no wilfredo dence of consolidation, mass, or pleural effusion. The bones are unremarkable. IMPRESSION: No evidence of acute cardiopulmonary disease
--- NOTE | 2019-09-04 19:38 | RAD ---
EXAM: 3 views of the right foot HISTORY: Foot pain COMPARISON: 04/13/2019 FINDINGS: 3 views of the right foot shows lateral dislocation of the bases of the second, third, and fourth metatarsals. There is erosion of the bone surrounding the tarsometatarsal joints in this location. Air is seen in the soft tissues with soft tissue swelling. There is remodeling of the dista l aspect of the third metatarsal. IMPRESSION: Air and soft tissue swelling is likely secondary to infection. The erosions surrounding t he tarsometatarsal joints of the second through fourth toes is concerning for osteomyelitis and/or septic arthritis.
[2019-09-04] MEDS ORDERED: Ketorolac Tromethamine 30 MG/ML VIAL ONE (19:42)
[2019-09-04] MEDS ORDERED: Acetaminophen 500 MG TAB ONE (19:42)
[2019-09-04] MEDS ORDERED: Piperacillin/Tazobactam 3.375 GM VIAL ONE (19:42)
[2019-09-04] MEDS ORDERED: Bisacodyl 5 MG TAB PO PRN (21:30)
[2019-09-04] MEDS ORDERED: Acetaminophen 325 MG TAB PO PRN (21:30)
[2019-09-04] MEDS ORDERED: Dextrose 5% in Water 1,000 ML IV PRN (21:32)
[2019-09-04] MEDS ORDERED: Dextrose 50% Abboject 50 ML SYRINGE SLOW IVP PRN (21:32)
--- NOTE | 2019-09-04 21:48 | MRI ---
EXAM: MRI of the right foot without and with contrast HISTORY: Stepped on a nail. Redness and swelling around the anterior metatarsals. COMPARISON: Foot radiograph 09/04/2019. TECHNIQUE: Multiplanar multisequence MR images were obtained of the right foot without and with IV co ntrast. FINDINGS: Diffuse soft tissue swelling is seen in the foot. There are areas of susceptibility artifact in the m idfoot consistent with the foci of air seen on the plain radiograph. There is a complex multilobulated fluid collection extending from the medial to the lateral aspect of the dorsal foot. T his surrounds the tarsometatarsal joints of the toes. Abnormal enhancement and low T1 signal is seen within the first, second, third, and fifth metatarsals consistent with osteomyelitis. Destructiv e changes are seen at the bases of the second and third metatarsals. IMPRESSION: Severe infection of the midfoot with osteomyelitis and large multiloculated abscess surrounding the t arsometatarsal joints.
--- NOTE | 2019-09-05 01:06 | HP ---
CHIEF COMPLAINT: Right foot swelling, fevers and chills. HISTORY OF PRESENT ILLNESS: The patient is a 29-year-old male with a history of diabetes type 1, who presents to the hospital for generalized weakness, fever and also right foot pain. The patient stated that in March, he stepped on a nail at [employer] and after that he did come into the hospital and he underwent an excision of the right fifth metatarsal proximal tubercle. The patient also was checked out for infection. However, at that time, the OR cultures indicated that he had enterococcus faecalis and at this time, Infectious Disease was consulted and the patient was put on Augmentin for about 4 weeks. The patient stated that his right foot has been doing well ever since. Occasionally at times, it would swell up. However, there would never be any erythema. He has had multiple followups with his primary without any concerns. The patient stated that on , he had a routine visit. He had a flu shot and after the flu shot, he started feeling really unwell. He then was told to take some Tylenol for body aches and pains and fevers and the patient noticed that on , his right foot started swelling and then on Friday noticed significant erythema of the right foot and since he had a fever at home with worsening chills, he came into the hospital for further evaluation. In the ER, the patient did undergo a foot x-ray, which was concerning for possible osteomyelitis and at this time, he was admitted into the hospital for further evaluation. PAST MEDICAL HISTORY: The patient has a history of type 1 diabetes. He is on Lantus. PAST SURGICAL HISTORY: He has no surgical history. SOCIAL HISTORY: He lives at home. Does not drink, does not smoke. Does not do any tobacco. He is a full code. ALLERGIES: NO KNOWN DRUG ALLERGIES. MEDICATIONS: He takes only Lantus, unknown dose. REVIEW OF SYSTEMS: All negative except for the ones mentioned above in the HPI. PHYSICAL EXAMINATION: VITAL SIGNS: Are as of the following; temperature of 97.9, heart rate 101, 12, and O2 saturation 96% on room air, blood pressure 92/57. GENERAL: He is awake, alert, and oriented x3. Does not appear in any distress. HEENT: Normocephalic, atraumatic. No lymphadenopathy noted. Pupils are equal and reactive to light. CV: S1 and S2 present. No murmurs, rubs, or gallops. ABDOMEN: Soft and nontender. Bowel sounds are present x2. LUNGS: Clear to auscultation. No rhonchi or wheezes noted. EXTREMITIES: His right leg appears to have significant swelling, unable to palpate for pulses, significant swelling. I do not see any open wounds. He just has a little scab on his second toe and the left foot appears stable. NEUROVASCULAR: No focal deficits noted. SKIN: No cuts, lesions, or bruises noted except for the right foot erythema. LABORATORY DATA: As of the following; WBCs of 13.0, hemoglobin of 10.8, hematocrit of 32.3, his bands are 21. Chemistry; sodium of 135, potassium of 3.9, BUN of 33, creatinine of 0.96. DIAGNOSTIC STUDIES: He did also have an MRI of his lower extremity, which indicated significant severe infection with mid foot with osteomyelitis and large multiloculated abscesses surrounding the tarsometatarsal joint. ASSESSMENT AND PLAN: The patient is a 29-year-old male, who presents to the hospital with fevers and right foot pain. 1. Sepsis. The patient has received about 4 L of normal saline. We will continue IV hydration. His lactic acid is 1. I will start him on Zosyn and vancomycin. Orthopedics has been consulted. I have spoken with them and have notified them about the MRI findings. The patient will undergo surgery in the morning and this was relayed to the patient. 2. Diabetes type 1. We will continue him on Lantus about 5 to 10 units to prevent any worsening of his sugars. 3. Deep venous thrombosis prophylaxis. We will put the patient on SCDs. 4. Right foot cellulitis, most likely osteomyelitis. I am not sure if this is secondary to his previous injuries. Since the patient stated that since his accident in March, he has never really had any pain or tingling when he walks. However, the patient is a type 1 diabetic and most likely has neuropathy, which could play a role in this. Job ID: [id number]
[2019-09-05 02:36] LABS: Bacteria/HPF None Seen HPF (None Seen); Bilirubin Negative (Negative); Blood, Urine Negative (Negative); Clarity Clear (Clear); Glucose, Urine (Dipstick) >=1000 mg/dL (Negative); Leukocyte Negative Leu/uL (Negative); Nitrite Negative (Negative); Protein, Urine (Dipstick) 50 mg/dL (Neg-Trace); RBC/HPF None Seen HPF (0-3); Squamous Epithelial None Seen HPF (0-3); Urobilinogen Normal mg/dL (Less than 2)
[2019-09-05] MEDS ORDERED: Piperacillin/Tazobactam 4.5 GM VIAL ONE (04:20)
[2019-09-05] MEDS: Piperacillin/Tazobactam 4.5 GM in Sodium Chloride 0.9% 100 ML IVPB SCH ×3 (04:22→16:37)
[2019-09-05] MEDS: Vancomycin HCl 750 MG in Sodium Chloride 0.9% 250 ML 250 ML IVPB SCH ×2 (04:57→14:38)
[2019-09-05] MEDS ORDERED: Norepinephrine 8 MG in Dextrose 5% in Water 242 ML IVPB PRN (05:13)
[2019-09-05] MEDS ORDERED: Norepinephrine 8 MG/0.9% NS 250 ML IVPB SCH (05:15)
[2019-09-05 07:15] LABS: Hemoglobin 9.5 g/dL (14.0-18.0); Mean Corpuscular HGB CONC 32.7 g/dL (32.0-36.0); Mean Corpuscular Volume 88.6 fL (78.0-98.0); Mean Platelet Volume 8.5 fL (7.4-10.4); Platelet Count 144 thou/uL (130-400); RBC Distribution Width 13.6 % (11.5-14.5); Red Blood Cell (RBC) Count 3.27 mill/uL (4.70-6.10)
[2019-09-05 07:32] LABS: Anion Gap 11 mmol/L (10-20); BUN (Urea Nitrogen) 22 mg/dL (8.9-20.6); Calc. Creatinine Clearance 0 mL/min (70-130); Calcium 7.9 mg/dL (7.8-10.44); Carbon Dioxide 20 mmol/L (22-29); Chloride 109 mmol/L (98-107); Estimated GFR-MDRD Greater than 90; Glucose 103 mg/dL (70-105); Potassium 3.6 mmol/L (3.5-5.1); Sodium 136 mmol/L (136-145)
[2019-09-05] MEDS ORDERED: Fentanyl 100 MCG/2 ML VIAL ONE (07:43)
[2019-09-05] MEDS ORDERED: Ondansetron PF 4 MG/2 ML Vial ONE (08:40)
[2019-09-05] MEDS ORDERED: PROPOFOL 200 MG/20 ML VIAL ONE (08:40)
[2019-09-05] MEDS ORDERED: PHENYLEPHRINE-NS 100 MCG/ML 10 ML SYRINGE ONE (08:40)
[2019-09-05] MEDS ORDERED: Lidocaine 1% PF 5 ML VIAL ONE (08:40)
[2019-09-05] MEDS ORDERED: Vancomycin HCl 1 GM in Premix Bag 1 BAG IVPB SCH (09:00)
[2019-09-05] MEDS ORDERED: Ondansetron PF 4 MG/2 ML Vial IVP PRN (09:29)
[2019-09-05] MEDS ORDERED: Bisacodyl 10 MG SUPP PR PRN (09:29)
[2019-09-05] MEDS ORDERED: Milk Of Magnesia 30 ML UDCUP PO PRN (09:29)
[2019-09-05] MEDS ORDERED: Ondansetron ODT 4 MG TAB PO PRN (09:29)
[2019-09-05] MEDS ORDERED: Fleet Enema 133 ML BOT PR PRN (09:29)
[2019-09-05] MEDS ORDERED: Cepastat Lozenges 1 LOZ PO PRN (09:29)
[2019-09-05] MEDS ORDERED: Ketorolac Tromethamine 30 MG/ML VIAL IVP PRN (09:34)
[2019-09-05] MEDS ORDERED: Promethazine HCl 25 MG/ML VIAL SLOW IVP PRN (09:34)
[2019-09-05] MEDS ORDERED: Morphine Sulfate 2 MG/ML SYRINGE SLOW IVP PRN (09:34)
[2019-09-05] MEDS ORDERED: Meperidine HCl/PF 25 MG/ML VIAL SLOW IVP PRN (09:34)
[2019-09-05] MEDS ORDERED: PACU-Morphine 4MG/ML VIAL SLOW IVP PRN (09:34)
[2019-09-05] MEDS ORDERED: Ondansetron HCl/PF 4 MG/2 ML Vial IVP PRN (09:34)
[2019-09-05] MEDS ORDERED: Promethazine HCl 25 MG/ML VIAL IM PRN (09:34)
[2019-09-05] MEDS ORDERED: HYDROmorphone 2 MG/ML VIAL SLOW IVP PRN (09:34)
[2019-09-05 09:42] LABS: Band 4 % (5-11); Lymphocytes 12 % (21-51); MDiff Complete? YES; Monocytes 6 % (0-10); Neutrophil 78 % (42-75); Platelet Morphology Comment Appears Adequate
--- NOTE | 2019-09-05 10:01 | OP ---
DATE OF PROCEDURE: 09/05/2019 PREOPERATIVE DIAGNOSIS: Abscess and osteomyelitis of the right midfoot. POSTOPERATIVE DIAGNOSIS: Abscess and osteomyelitis of the right midfoot. PROCEDURE PERFORMED: Incision and drainage, irrigation and debridement of abscesses of the right midfoot with removal of a portion of the base of the 2nd through 5th metatarsals. ANESTHESIA: General. DESCRIPTION OF PROCEDURE: The patient was taken to the operating room, placed in the supine position. Satisfactory general anesthesia was performed. The right foot and leg were sterilely prepped and draped. The leg was elevated and a tourniquet in the right thigh was raised to 300 mmHg. A longitudinal incision was made initially 2 inches in length centered over the 2nd and 3rd tarsometatarsal joints. Blunt dissection was made down to that area and purulent drainage was encountered consistent with abscess. There was drainage of purulent fluid in the base of the 2nd and 3rd metatarsals and partial removal of the dorsum of the 2nd and 3rd metatarsals was performed using a rongeur and additional incision was made on the dorsal lateral aspect of the midfoot over the 4th and 5th metatarsals, where another abscess was located and was drained. Cultures were obtained. The 4th and 5th metatarsal bases were also infected and the tarsometatarsal joints were unstable. The portion of the dorsum of the 4th and 5th metatarsals were also removed with a rongeur. Both wounds were then copiously irrigated with antibiotic solution using the high-speed temperer. They were left open and dressing was applied. Tourniquet was released. The patient was awakened, extubated, and transferred to recovery room in stable condition. ESTIMATED BLOOD LOSS: 50 mL. COMPLICATIONS: None. TOURNIQUET TIME: 23 minutes. The patient will continue with IV antibiotics. We will consult Dr. Young, Infectious Disease doctor, and I will ask wound care to apply wound VAC tomorrow. Job ID: [id number]
--- NOTE | 2019-09-05 10:02 | CON ---
DATE OF CONSULTATION: 09/05/2019 HISTORY OF PRESENT ILLNESS: Mr. Mcwilliams is a 29-year-old male who has type 1 diabetes. The patient states he stepped on a nail at [employer] approximately 6 months ago. He underwent excision of base of the right fifth metatarsal 2 weeks after the puncture wound. The cultures from the operating room at that time showed enterococcus faecalis. Dr. Young, infectious disease doctor, was consulted and put the patient on Augmentin for about 4 weeks. He states his right foot has been doing well. Occasionally has some swelling, but has not had any erythema. The patient states that on , on 09/03/2019, his foot swelled and he developed redness and increased pain and fever along with chills and presented to the emergency room. X-rays in the emergency room showed soft tissue swelling with some destruction at the tarsometatarsal joints, basically from the second through the fifth and they were consistent with osteomyelitis. The patient had an MRI, which did show abscess formation in the tarsometatarsal joints with osteomyelitis at the second through the fifth tarsometatarsal joints and base of the metatarsals. PAST MEDICAL HISTORY: Medical illnesses: Type 1 diabetes. CURRENT MEDICATION: Lantus. ALLERGIES: NONE. PHYSICAL EXAMINATION: EXTREMITIES: Right foot is swollen. It has some tenderness. There is mild erythema. There are no open wounds. He has very poor pulses. IMPRESSION: Abscess formation with osteomyelitis and septic arthritis at the tarsometatarsal joints involving the base of the metatarsals. PLAN: The patient will require incision and drainage of the abscesses, irrigation, and debridement. I explained to the patient that with type 1 diabetes, any infection in the bone will require debridement of that bone and if it is completely taken down to eradicate the infection, he will have an unstable foot and it is very likely that in the future, he will ultimately require an amputation of the foot. Today, the patient has agreed to just incision and drainage, and irrigation and debridement with some debridement of the bone, but he does not want all of the midfoot joints removed. Job ID: [id number]
[2019-09-05] MEDS: Insulin Glargine 5 UNITS in Pre-Filled Syringe 1 EACH SC SCH (10:48)
[2019-09-05] MEDS: Sodium Chloride 0.9% 1,000 ML IV SCH ×2 (10:48→11:39)
[2019-09-05] MEDS: Enoxaparin Sodium 40 MG/0.4 ML SYRINGE SC SCH (10:48)
[2019-09-05 11:43] VITALS: BMI 18.1
[2019-09-05] MEDS: Ketorolac Tromethamine 30 MG/ML VIAL IVP SCH ×2 (11:50→18:27)
[2019-09-05] MEDS: HumaLOG 300 UNITS/3 ML VIAL SC PRN ×2 (16:58→22:01)
[2019-09-05] MEDS: cefTRIAXone\\ROCEPHIN 2 GM in Sodium Chloride 0.9% 100 ML IVPB SCH (17:00)
[2019-09-05] MEDS: Senokot S 8.6-50 MG TAB PO SCH (20:43)
[2019-09-05] MEDS: Ferrous Gluconate 324 MG TAB PO SCH (20:43)
--- NOTE | 2019-09-05 21:07 | PDOC.HOSPP ---
- Subjective Subjective: Doing well post-operatively. No pain. - Objective Vital Signs & Weight: Vital Signs (12 hours) Temp Pulse Resp BP Pulse Ox 09/05/19 20:14 98.3 F 117 H 16 119/80 96 09/05/19 10:35 98.1 F 101 H 16 105/69 95 Weight Weight 125 lb 15.907 oz I&O: 09/04/19 09/05/19 09/06/19 06:59 06:59 06:59 Intake Total 2019 Output Total 1125 Balance 895 Result Diagrams: 09/05/19 03:51 09/05/19 03:51 Additional Labs: Accuchecks 09/05/19 09/05/19 09/05/19 20:52 15:41 11:20 POC Glucose 266 H 260 H 101 Hospitalist ROS - Medication Medications: Active Medications Generic Name Dose Route Start Last Admin Trade Name Freq PRN Reason Stop Dose Admin Enoxaparin Sodium 40 mg 09/05/19 09:00 09/05/19 10:48 Lovenox SC Not Given 0900 [facility] Ferrous Gluconate 324 mg 09/05/19 21:00 09/05/19 20:43 Fergon PO Not Given BID [facility] Insulin Glargine 5 units/ 0.05 mls @ 0 mls/hr 09/05/19 09:00 09/05/19 10:48 Miscellaneous Medication SC Not Given QAM [facility] Sodium Chloride 1,000 mls @ 65 mls/hr 09/05/19 09:30 09/05/19 10:48 Normal Saline 0.9% IV Not Given .[id number] [facility] Ceftriaxone Sodium 2 gm/ 100 mls @ 200 mls/hr 09/05/19 17:00 09/05/19 17:00 Sodium Chloride IVPB 100 mls Q24HR DUC Administration Insulin Human Lispro 0 units 09/04/19 21:32 09/05/19 16:58 Humalog SC 4 unit .MILD SLIDING SCALE PRN Administration Mild Correctional Scale Ketorolac Tromethamine 30 mg 09/05/19 12:00 09/05/19 18:27 Toradol IVP 09/07/19 12:01 30 mg Q6HR DUC Administration Senna/Docusate Sodium 2 tab 09/05/19 21:00 09/05/19 20:43 Senokot S PO Not Given BID DUC - Exam General Appearance: NAD, awake alert Heart: RRR, no murmur, no gallops, no rubs, normal peripheral pulses Respiratory: CTAB, no wheezes, no rales, no ronchi, normal chest expansion, no tachypnea, normal percussion Gastrointestinal: soft, non-tender, non-distended, normal bowel sounds, no palpable masses, no hepatomegaly, no splenomegaly, no bruit Skin: normal turgor Musculoskeletal: normal tone Musculoskeletal - other findings: Right foot with post-op dressing. Psychiatric: normal affect, normal behavior, A&O x 3 Hosp A/P (1) Osteomyelitis Code(s): M86.9 - OSTEOMYELITIS, UNSPECIFIED Status: Acute (2) Diabetic foot infection Code(s): E11.628 - TYPE 2 DIABETES MELLITUS WITH OTHER SKIN COMPLICATIONS; L08.9 - LOCAL INFECTION OF THE SKIN AND SUBCUTANEOUS TISSUE, UNSP Status: Acute (3) Bacteremia due to Gram-positive bacteria Code(s): R78.81 - BACTEREMIA Status: Acute (4) DM type 1 (diabetes mellitus, type 1) Status: Chronic - Plan Doing well post-op. Foot salvage procedure for abscess and osteomyelitis. Continue broad-spectrum abx and follow up cultures. Continue Vanc for the GPC bactermia. Maintain glucose control. WOund care, wound vac. ID consult.
--- NOTE | 2019-09-05 22:58 | CON ---
DATE OF CONSULTATION: 09/05/2019 REASON FOR CONSULTATION: Recrudescence of inflammatory process, right foot. HISTORY OF PRESENT ILLNESS: A 29-year-old whom we had seen in March 2019 when he presented with a history of type 1 diabetes mellitus and injury to the right foot. While he was buying supplies in [employer], he stepped on a nail that was on the floor in one of the halls of the store. He sustained a displaced and distracted fifth metatarsal fracture with nonunion, and Dr. Isaac performed excision of the fifth metatarsal proximal tubercle. Some serous fluid was noted, but no purulent material. The tubercle was avascular and was removed. The wound was irrigated and closed. Cultures from the site yielded Enterococcus faecalis. He was treated with 4 weeks of oral Augmentin and I followed him up in clinic. In June 2019, he had mild edema at the site. He had finished the antimicrobial therapy. The incision had healed. He had no pain. There was no erythema. I saw him once more in July 21 and he had some intermittent pain in the right foot, but there was no evidence of erythema or tenderness, and only mild swelling. No wound was noted. After that, he did well until he was admitted yesterday with fever and chills after receiving influenza vaccine. In the emergency room, he was noted to have inflammatory changes in the right foot with some destruction at the tarsometatarsal joints. This was from the second through the fifth ray consistent with osteomyelitis. An abscess was demonstrated on MRI of the foot and he underwent operative intervention by Dr. Mckeon. A longitudinal incision was made 2 inches in length, centered over the second and third tarsometatarsal joints. Blunt dissection made down to the area. Purulent drainage encountered consistent with abscess. There was drainage with purulent fluid at the base of the second and third metatarsals, partial removal of the dorsum of second and third was carried out with a rongeur. Additional incision was made on the dorsal aspect of the mid foot over the fourth and fifth metatarsals, where another abscess was located and drained. The patient currently is awake. He has not much pain and probably part of it from neuropathy. Denies headaches. No visual symptoms, sore throat, odynophagia, or dysphagia. No cough or sputum production. No chest pain. No abdominal pain. No diarrhea. No genitourinary symptoms. No other joint symptoms. No neurological symptoms. PAST MEDICAL HISTORY: Type 1 diabetes mellitus. A recent perforating injury, which led to fracture of the fifth metatarsal, which led to the surgical procedure with resection of the fifth metatarsal tubercle. After that, he received oral amoxicillin for about a month. SOCIAL HISTORY: Never a smoker. No alcoholic beverage use. No drug use. ALLERGIES: NONE. FAMILY HISTORY: Noncontributory. CURRENT MEDICATIONS: 1. Dulcolax. 2. Dextrose. 3. Lovenox. 4. Fergon. 5. Glucagon. 6. Insulin. 7. Toradol. 8. Zosyn. 9. Vancomycin. PHYSICAL EXAMINATION: VITAL SIGNS: His temperature was 100.9, now is 98.7; pulse 108, now 86; blood pressure 130/70; respiratory rate 16. GENERAL: He appears in no distress. SKIN: The patient's right foot has a dressing, which was not removed. Peripheral IV access. No lymphadenopathy. HEENT: Somewhat pale conjunctivae. Ocular movements conjugate. Oral cavity with a few missing teeth. NECK: Supple. No jugular venous distention or carotid bruits. No thyromegaly. LUNGS: Symmetric. Clear breath sounds. HEART: S1 and S2. Regular rate. ABDOMEN: Soft, not distended or tender. No ascites. No bladder distention. EXTREMITIES: No joint inflammatory activity outside the involved area. Pulses are normal. Good capillary refill. NEUROLOGIC: Cognitive function appears to be intact. LABORATORY DATA: White cell count 13,000, hemoglobin 10.8, platelets 161, 21% bands. Chemistry with creatinine 0.96 and 0.77. AST 40. Albumin 3.1. Urinalysis with 4 to 6 wbc's. Beta-hydroxybutyrate 0.71. Blood cultures 2/2 sets with group B Streptococcus. Cultures from the foot sample with gram-positive cocci in pairs and chains. ASSESSMENT: 1. Type 1 diabetes. 2. Former perforating injury to right foot with fifth metatarsal nonunion fracture with Enterococcus faecalis identified in culture, treated with oral amoxicillin for about 4 weeks and had resolution of the inflammatory process, now recrudescence of the inflammatory process with involvement of the second and third tarsometatarsal joints, status post removal of the dorsum of the second and third metatarsals with rongeur. DISCUSSION: Quite unusual sequence of events. This area of involvement currently appears to be separate from the previous site of involvement and this could reflect hematogenous osteomyelitis to those areas of the right foot, may be associated with some element of [place]arc[place] arthropathy. We will switch him to Rocephin and place a PICC line and treat for 6 to 8 weeks with IV Rocephin, monitor weekly labs, follow up x-rays. Other sites of involvement are not apparent at this time. He does not have any devices. Endocarditis is less likely. Job ID: [id number] [facility]
[2019-09-06] MEDS: Ketorolac Tromethamine 30 MG/ML VIAL IVP SCH ×4 (00:12→18:02)
[2019-09-06] MEDS: Sodium Chloride 0.9% 1,000 ML IV SCH ×2 (00:13→16:27)
[2019-09-06 04:50] LABS: Hemoglobin 10.3 g/dL (14.0-18.0); Mean Corpuscular HGB CONC 32.7 g/dL (32.0-36.0); Mean Corpuscular Hemoglobin 28.9 pg (27.0-31.0); Mean Corpuscular Volume 88.2 fL (78.0-98.0); Mean Platelet Volume 8.1 fL (7.4-10.4); Platelet Count 200 thou/uL (130-400); RBC Distribution Width 13.8 % (11.5-14.5); Red Blood Cell (RBC) Count 3.56 mill/uL (4.70-6.10); White Blood Cell (WBC) Count 10.9 thou/uL (4.8-10.8)
[2019-09-06] MEDS ORDERED: Loperamide HCl 2 MG CAP PO PRN (05:01)
[2019-09-06 05:13] LABS: Anion Gap 13 mmol/L (10-20); BUN (Urea Nitrogen) 20 mg/dL (8.9-20.6); Calc. Creatinine Clearance 107 mL/min (70-130); Calcium 8.4 mg/dL (7.8-10.44); Carbon Dioxide 20 mmol/L (22-29); Chloride 108 mmol/L (98-107); Estimated GFR-MDRD Greater than 90; Glucose 293 mg/dL (70-105); Potassium 3.9 mmol/L (3.5-5.1); Sodium 137 mmol/L (136-145)
[2019-09-06] MEDS: HumaLOG 300 UNITS/3 ML VIAL SC PRN ×4 (06:26→21:16)
[2019-09-06] MEDS: Senokot S 8.6-50 MG TAB PO SCH ×2 (08:53→20:02)
[2019-09-06] MEDS: Multivitamin W/ Minerals 1 TAB PO SCH (08:54)
[2019-09-06] MEDS: Ferrous Gluconate 324 MG TAB PO SCH ×2 (08:54→20:02)
[2019-09-06] MEDS: Insulin Glargine 5 UNITS in Pre-Filled Syringe 1 EACH SC SCH (08:58)
[2019-09-06] MEDS ORDERED: FLU VACC QS2019-20(6MOS UP)/PF 60 MCG/0.5 ML SYRINGE IM ONE (09:00)
[2019-09-06] MEDS: Enoxaparin Sodium 40 MG/0.4 ML SYRINGE SC SCH (09:01)
--- NOTE | 2019-09-06 15:11 | PRG ---
DATE OF SERVICE: 09/06/2019 Mr. Mcwilliams states that he has very little if any pain in his right foot. The patient has been afebrile. Vital signs have been stable. The right foot, the patient is able to flex and extend his toes well without pain and have good capillary refill. Cultures from the right foot shows Streptococcus agalactiae group B. Dr. Young has seen the patient and is planning on putting a PICC line in and treating the patient with 6 to 8 weeks of IV antibiotics. The patient will follow up with me in 2 weeks. Job ID: [id number]
--- NOTE | 2019-09-06 15:57 | PDOC.HOSPP ---
- Subjective Subjective: Doing well. Was up with PT this morning. - Objective Vital Signs & Weight: Vital Signs (12 hours) Temp Pulse Resp BP Pulse Ox 09/06/19 11:27 98.0 F 98 14 126/82 95 09/06/19 08:50 98 09/06/19 07:43 98.0 F 97 12 124/94 H 98 Weight Admit Weight 125 lb 15.904 oz Weight 125 lb 15.904 oz I&O: 09/05/19 09/06/19 09/07/19 06:59 06:59 06:59 Intake Total 3600 600 Output Total 1125 800 Balance 2475 -200 Result Diagrams: 09/06/19 04:27 09/06/19 04:27 Additional Labs: Accuchecks 09/06/19 09/06/19 09/05/19 11:40 05:38 20:52 POC Glucose 252 H 263 H 266 H 09/05/19 07:55 POC Glucose 90 Hospitalist ROS - Medication Medications: Active Medications Generic Name Dose Route Start Last Admin Trade Name Freq PRN Reason Stop Dose Admin Enoxaparin Sodium 40 mg 09/05/19 09:00 09/06/19 09:01 Lovenox SC 40 mg 0900 DUC Administration Ferrous Gluconate 324 mg 09/05/19 21:00 09/06/19 08:54 Fergon PO 324 mg BID DUC Administration Insulin Glargine 5 units/ 0.05 mls @ 0 mls/hr 09/05/19 09:00 09/06/19 08:58 Miscellaneous Medication SC 0.05 mls QAM DUC Administration Sodium Chloride 1,000 mls @ 65 mls/hr 09/05/19 09:30 09/06/19 00:13 Normal Saline 0.9% IV 1,000 mls .[id number] DUC Administration Ceftriaxone Sodium 2 gm/ 100 mls @ 200 mls/hr 09/05/19 17:00 09/05/19 17:00 Sodium Chloride IVPB 100 mls Q24HR DUC Administration Insulin Human Lispro 0 units 09/04/19 21:32 09/06/19 12:23 Humalog SC 4 unit .MILD SLIDING SCALE PRN Administration Mild Correctional Scale Iron/Minerals/Multivitamins 1 tab 09/06/19 09:00 09/06/19 08:54 Theragran M PO 1 tab DAILY DUC Administration Ketorolac Tromethamine 30 mg 09/05/19 12:00 09/06/19 10:33 Toradol IVP 09/07/19 12:01 30 mg Q6HR DUC Administration Senna/Docusate Sodium 2 tab 09/05/19 21:00 09/06/19 08:53 Senokot S PO 2 tab BID DUC Administration - Exam General Appearance: NAD, awake alert Heart: RRR, no murmur, no gallops, no rubs, normal peripheral pulses Respiratory: CTAB, no wheezes, no rales, no ronchi, normal chest expansion, no tachypnea, normal percussion Gastrointestinal: soft, non-tender, non-distended, normal bowel sounds, no palpable masses, no hepatomegaly, no splenomegaly, no bruit Extremities - other findings: Right foot with wound vac and post op dressing. Skin: normal turgor, no lesions, no rashes Neurological: cranial nerve grossly intact, normal sensation to touch, no weakness, no focal deficits, no new deficit Musculoskeletal: normal tone, normal strength, no muscle wasting Psychiatric: normal affect, normal behavior, A&O x 3 Hosp A/P (1) Osteomyelitis Code(s): M86.9 - OSTEOMYELITIS, UNSPECIFIED Status: Acute (2) Diabetic foot infection Code(s): E11.628 - TYPE 2 DIABETES MELLITUS WITH OTHER SKIN COMPLICATIONS; L08.9 - LOCAL INFECTION OF THE SKIN AND SUBCUTANEOUS TISSUE, UNSP Status: Acute (3) Bacteremia due to Gram-positive bacteria Code(s): R78.81 - BACTEREMIA Status: Acute (4) DM type 1 (diabetes mellitus, type 1) Status: Chronic - Plan Doing well post-op. Foot salvage procedure for abscess and osteomyelitis. Continue broad-spectrum abx and follow up cultures. Continue Rocephin for the bactermia. Maintain glucose control. WOund care, wound vac. ID consult recommended 6-8 weeks of therapy. PICC line ordered. Discussed with CM.
[2019-09-06] MEDS: cefTRIAXone\\ROCEPHIN 2 GM in Sodium Chloride 0.9% 100 ML IVPB SCH (16:26)
[2019-09-07] MEDS: Ketorolac Tromethamine 30 MG/ML VIAL IVP SCH ×3 (00:08→12:31)
[2019-09-07] MEDS ORDERED: Loperamide HCl 2 MG CAP PO PRN (01:43)
[2019-09-07] MEDS: Loperamide HCl 2 MG CAP PO PRN (02:46)
[2019-09-07 05:45] LABS: Hemoglobin 10.2 g/dL (14.0-18.0); Mean Corpuscular HGB CONC 32.7 g/dL (32.0-36.0); Mean Corpuscular Hemoglobin 28.6 pg (27.0-31.0); Mean Corpuscular Volume 87.7 fL (78.0-98.0); Mean Platelet Volume 7.6 fL (7.4-10.4); Platelet Count 227 thou/uL (130-400); RBC Distribution Width 13.8 % (11.5-14.5); Red Blood Cell (RBC) Count 3.55 mill/uL (4.70-6.10); White Blood Cell (WBC) Count 5.8 thou/uL (4.8-10.8)
[2019-09-07] MEDS: HumaLOG 300 UNITS/3 ML VIAL SC PRN (05:46)
[2019-09-07] MEDS ORDERED: Insulin Glargine 10 UNITS in Pre-Filled Syringe 1 EACH SC SCH (09:00)
[2019-09-07] MEDS: Sodium Chloride 0.9% 1,000 ML IV SCH (09:18)
[2019-09-07] MEDS: Enoxaparin Sodium 40 MG/0.4 ML SYRINGE SC SCH (09:19)
[2019-09-07] MEDS: Ferrous Gluconate 324 MG TAB PO SCH ×2 (09:20→21:23)
[2019-09-07] MEDS: Multivitamin W/ Minerals 1 TAB PO SCH (09:20)
[2019-09-07] MEDS: Senokot S 8.6-50 MG TAB PO SCH (09:21)
[2019-09-07] MEDS ORDERED: Insulin Glargine 5 UNITS in Pre-Filled Syringe 1 EACH SC SCH (11:15)
--- NOTE | 2019-09-07 12:30 | PRG ---
DATE OF SERVICE: 09/07/2019 Mr. Mcwilliams has good pain control. He is unable to get up, ambulate. He needs to be nonweightbearing on his right foot. The patient is afebrile. Vital signs are stable. The patient is scheduled to have 6 to 8 weeks of IV antibiotics as per Dr. Young. No further surgery is planned by me at this time. He will follow up after discharge in my office next week. Job ID: [id number]
--- NOTE | 2019-09-07 13:00 | PDOC.HOSPP ---
- Subjective Subjective: Doing ok. No pain. - Objective Vital Signs & Weight: Vital Signs (12 hours) Temp Pulse Resp BP Pulse Ox 09/07/19 04:12 97.7 F 88 16 122/64 94 L Weight Admit Weight 125 lb 15.904 oz Weight 125 lb 15.904 oz I&O: 09/06/19 09/07/19 09/08/19 06:59 06:59 06:59 Intake Total 3600 3310 Output Total 1125 1975 Balance 2475 1335 Result Diagrams: 09/07/19 05:13 09/06/19 04:27 Additional Labs: Accuchecks 09/07/19 09/07/19 09/06/19 11:32 05:24 20:32 POC Glucose 220 H 324 H 214 H 09/06/19 16:05 POC Glucose 254 H Hospitalist ROS - Medication Medications: Active Medications Generic Name Dose Route Start Last Admin Trade Name Freq PRN Reason Stop Dose Admin Enoxaparin Sodium 40 mg 09/05/19 09:00 09/07/19 09:19 Lovenox SC 40 mg 0900 DUC Administration Ferrous Gluconate 324 mg 09/05/19 21:00 09/07/19 09:20 Fergon PO 324 mg BID DUC Administration Sodium Chloride 1,000 mls @ 65 mls/hr 09/05/19 09:30 09/07/19 09:18 Normal Saline 0.9% IV Not Given .[id number] DUC Ceftriaxone Sodium 2 gm/ 100 mls @ 200 mls/hr 09/05/19 17:00 09/06/19 16:26 Sodium Chloride IVPB 100 mls Q24HR DUC Administration Insulin Glargine 5 units/ 0.05 mls @ 0 mls/hr 09/07/19 11:15 09/07/19 12:30 Miscellaneous Medication SC 09/07/19 13:15 0.05 mls NOW DUC Administration Insulin Human Lispro 0 units 09/04/19 21:32 09/07/19 05:46 Humalog SC 5 unit .MILD SLIDING SCALE PRN Administration Mild Correctional Scale Iron/Minerals/Multivitamins 1 tab 09/06/19 09:00 09/07/19 09:20 Theragran M PO 1 tab DAILY DUC Administration Loperamide HCl 2 mg 09/07/19 01:44 09/07/19 02:46 Imodium PO 2 mg Q4H PRN Administration Diarrhea/Loose Stools Senna/Docusate Sodium 2 tab 09/05/19 21:00 09/07/19 09:21 Senokot S PO Not Given BID DUC Sodium Chloride 10 ml 09/05/19 09:29 09/07/19 12:31 Flush - Normal Saline IVF 10 ml PRN PRN Administration Saline Flush - Exam General Appearance: NAD, awake alert Neck: supple, symmetric, no JVD, no thyromegaly, no lymphadenopathy, no carotid bruit Heart: RRR, no murmur, no gallops, no rubs, normal peripheral pulses Respiratory: CTAB, no wheezes, no rales, no ronchi, normal chest expansion, no tachypnea, normal percussion Gastrointestinal: soft, non-tender, non-distended, normal bowel sounds, no palpable masses, no hepatomegaly, no splenomegaly, no bruit Extremities: no cyanosis, no clubbing, no edema Extremities - other findings: Right foot in post-op dressing. Skin: normal turgor Psychiatric: normal affect, normal behavior, A&O x 3 Hosp A/P (1) Osteomyelitis Code(s): M86.9 - OSTEOMYELITIS, UNSPECIFIED Status: Acute (2) Diabetic foot infection Code(s): E11.628 - TYPE 2 DIABETES MELLITUS WITH OTHER SKIN COMPLICATIONS; L08.9 - LOCAL INFECTION OF THE SKIN AND SUBCUTANEOUS TISSUE, UNSP Status: Acute (3) Bacteremia due to Gram-positive bacteria Code(s): R78.81 - BACTEREMIA Status: Acute (4) DM type 1 (diabetes mellitus, type 1) Status: Chronic - Plan Doing well post-op. Foot salvage procedure for abscess and osteomyelitis. Continue Rocephin for the Group B Strep bactermia. Maintain glucose control. Increased insulin back to his normal dose Wound care, wound vac. ID consult recommended 6-8 weeks of therapy. PICC line ordered. Discussed with CM.
--- NOTE | 2019-09-07 13:36 | SPC ---
Ultrasound-guidedleftupper extremity PICC placement: 09/07/2019 HISTORY: Foot infection, IV antibiotics FINDINGS: Informed consent obtained prior to the procedure. Left antecubital fossa prepped and draped in normal sterile fashion. Skin overlying theleft basilicvein anesthetized with 1% buffered lidocaine. With direct sonographic g uidance, vascular access is obtained via the left basilicvein and an 0.018in wire was advanced to the cavoatrial junction. Intravascular length is calculated at 41 cm and of the PICC is cut according ly. Needle is removed and replaced with a peel-away sheath. The PICC was advanced over the wire. Wire and peel-away sheath were removed. The tip of the catheter overlies the cavoatrial junction. The port flushes well and the catheter is ready for use. Exposure data: 0.1 minutes of fluoroscopic time 493 mGy per centimeter squared IMPRESSION: Successful ultrasound guided placement of a leftupper extremity PICC.
[2019-09-07] MEDS: cefTRIAXone\\ROCEPHIN 2 GM in Sodium Chloride 0.9% 100 ML IVPB SCH (17:46)
[2019-09-07] MEDS: Insulin Glargine 15 UNITS in Pre-Filled Syringe 1 EACH SC SCH (21:24)
[2019-09-07] MEDS: traMADol HCl 50 MG TAB PO PRN (21:29)
[2019-09-08] MEDS: Senokot S 8.6-50 MG TAB PO SCH ×3 (01:56→20:50)
[2019-09-08] MEDS: Sodium Chloride 0.9% 1,000 ML IV SCH ×2 (01:58→16:41)
[2019-09-08] MEDS: HumaLOG 300 UNITS/3 ML VIAL SC PRN (05:37)
[2019-09-08 06:00] LABS: Hemoglobin 10.6 g/dL (14.0-18.0); Mean Corpuscular HGB CONC 33.1 g/dL (32.0-36.0); Mean Corpuscular Hemoglobin 28.6 pg (27.0-31.0); Mean Corpuscular Volume 86.4 fL (78.0-98.0); Mean Platelet Volume 7.5 fL (7.4-10.4); Platelet Count 229 thou/uL (130-400); RBC Distribution Width 13.7 % (11.5-14.5); Red Blood Cell (RBC) Count 3.72 mill/uL (4.70-6.10)
[2019-09-08] MEDS: Multivitamin W/ Minerals 1 TAB PO SCH (08:55)
[2019-09-08] MEDS: Ferrous Gluconate 324 MG TAB PO SCH ×2 (08:56→20:51)
[2019-09-08] MEDS: Insulin Glargine 15 UNITS in Pre-Filled Syringe 1 EACH SC SCH ×2 (08:56→20:59)
[2019-09-08] MEDS: Enoxaparin Sodium 40 MG/0.4 ML SYRINGE SC SCH (08:56)
[2019-09-08] MEDS: traMADol HCl 50 MG TAB PO PRN (09:02)
[2019-09-08] MEDS ORDERED: Promethazine HCl 25 MG in Sodium Chloride 0.9% 50 ML IVPB PRN (13:39)
[2019-09-08] MEDS ORDERED: Promethazine 25 MG TAB PO PRN (13:41)
--- NOTE | 2019-09-08 15:46 | PDOC.HOSPP ---
- Subjective Encounter Date: 09/08/19 Encounter Time: 15:45 Subjective: Mr. Mcwilliams was seen today in follow-up of diabetic foot infection.He is complaining of severe pain in his left side and vomiting 4-5 times today. His symptoms started yesterday - Objective Vital Signs & Weight: Vital Signs (12 hours) Temp Pulse Resp BP Pulse Ox 09/08/19 04:21 98.5 F 100 16 110/71 92 L Weight Admit Weight 125 lb 15.904 oz Weight 125 lb 15.904 oz I&O: 09/07/19 09/08/19 09/09/19 06:59 06:59 06:59 Intake Total 3310 1020 Output Total 1975 800 Balance 1335 220 Result Diagrams: 09/08/19 05:10 09/06/19 04:27 Additional Labs: Accuchecks 09/08/19 09/08/19 09/07/19 11:10 05:20 21:18 POC Glucose 136 H 167 H 260 H 09/07/19 17:22 POC Glucose 242 H Hospitalist ROS - Medication Medications: Active Medications Generic Name Dose Route Start Last Admin Trade Name Freq PRN Reason Stop Dose Admin Enoxaparin Sodium 40 mg 09/05/19 09:00 09/08/19 08:56 Lovenox SC 40 mg 0900 DUC Administration Ferrous Gluconate 324 mg 09/05/19 21:00 09/08/19 08:56 Fergon PO 324 mg BID DUC Administration Sodium Chloride 1,000 mls @ 65 mls/hr 09/05/19 09:30 09/08/19 01:58 Normal Saline 0.9% IV Not Given .[id number] DUC Ceftriaxone Sodium 2 gm/ 100 mls @ 200 mls/hr 09/05/19 17:00 09/07/19 17:46 Sodium Chloride IVPB 100 mls Q24HR DUC Administration Insulin Glargine 15 units/ 0.15 mls @ 0 mls/hr 09/07/19 21:00 09/08/19 08:56 Miscellaneous Medication SC 0.15 mls BID DUC Administration Insulin Human Lispro 0 units 09/04/19 21:32 09/08/19 05:37 Humalog SC 2 unit .MILD SLIDING SCALE PRN Administration Mild Correctional Scale Iron/Minerals/Multivitamins 1 tab 09/06/19 09:00 09/08/19 08:55 Theragran M PO 1 tab DAILY DUC Administration Loperamide HCl 2 mg 09/07/19 01:44 09/07/19 02:46 Imodium PO 2 mg Q4H PRN Administration Diarrhea/Loose Stools Ondansetron HCl 4 mg 09/05/19 09:29 09/08/19 09:02 Zofran Odt PO 4 mg Q6H PRN Administration Nausea/Vomiting Ondansetron HCl 4 mg 09/05/19 09:29 09/08/19 11:33 Zofran IVP 4 mg Q6H PRN Administration Nausea/Vomiting Senna/Docusate Sodium 2 tab 09/05/19 21:00 09/08/19 08:55 Senokot S PO 2 tab BID DUC Administration Sodium Chloride 10 ml 09/05/19 09:29 09/07/19 12:31 Flush - Normal Saline IVF 10 ml PRN PRN Administration Saline Flush Tramadol HCl 50 mg 09/07/19 20:29 09/08/19 09:02 Ultram PO 50 mg Q4H PRN Administration Moderate Pain (4-6) - Exam Eye: PERRL, anicteric sclera Heart: RRR, no murmur, no gallops, no rubs, normal peripheral pulses Respiratory: CTAB, no wheezes, no rales, no ronchi, normal chest expansion Gastrointestinal: soft, non-distended, normal bowel sounds, tender to palpation (Left lower quandrant tenderness) Extremities: no cyanosis (+ wound vac in place), no clubbing Hosp A/P (1) Nausea & vomiting Code(s): R11.2 - NAUSEA WITH VOMITING, UNSPECIFIED Status: Acute (2) Abdominal pain Code(s): R10.9 - UNSPECIFIED ABDOMINAL PAIN Status: Acute (3) Diabetic foot infection Code(s): E11.628 - TYPE 2 DIABETES MELLITUS WITH OTHER SKIN COMPLICATIONS; L08.9 - LOCAL INFECTION OF THE SKIN AND SUBCUTANEOUS TISSUE, UNSP Status: Acute (4) DM type 1 (diabetes mellitus, type 1) Status: Chronic - Plan * Nausea and vomting- with abdominal pain- will check an Abdominal sersies, and chemistry panel * Continue symptom relief * Diabetic foot infection- continue Rocephin IV * DM- blood glucose is stable
[2019-09-08 16:27] LABS: ALT (SGPT) 17 U/L (8-55); AST (SGOT) 19 U/L (5-34); Albumin 2.9 g/dL (3.5-5.0); Alkaline Phosphatase 99 U/L (40-110); Anion Gap 11 mmol/L (10-20); BUN (Urea Nitrogen) 8 mg/dL (8.9-20.6); Bilirubin, Total 0.6 mg/dL (0.2-1.2); Calc. Creatinine Clearance 143 mL/min (70-130); Calcium 8.9 mg/dL (7.8-10.44); Carbon Dioxide 33 mmol/L (22-29); Chloride 95 mmol/L (98-107); Estimated GFR-MDRD Greater than 90; Glucose 149 mg/dL (70-105); Lipase 21 U/L (8-78); Potassium 3.5 mmol/L (3.5-5.1); Protein, Total 6.9 g/dL (6.0-8.3); Sodium 135 mmol/L (136-145)
--- NOTE | 2019-09-08 16:32 | RAD ---
Exam: One view chest 2 views abdomen HISTORY: Abdominal pain. Vomiting FINDINGS: One view chest: Left-sided PICC line terminates in the right atrium. Normal cardiac silhouette. Lungs and pleural spaces are clear. No pneumothorax 2 views abdomen: Nonspecific bowel gas pattern. No suspicious densities in the abdomen and pelvis. No evidence of bowel distention or dilatation. No differential air-fluid levels. No pneumoperitoneum. IMPRESSION: 1. No acute cardiopulmonary process 2. Nonspecific bowel gas pattern
[2019-09-08] MEDS ORDERED: Heparin 1,000 UNITS/ML VIAL ONE (18:00)
[2019-09-08] MEDS: cefTRIAXone\\ROCEPHIN 2 GM in Sodium Chloride 0.9% 100 ML IVPB SCH (18:02)
[2019-09-09] MEDS: Sodium Chloride 0.9% 1,000 ML IV SCH ×2 (05:49→21:00)
[2019-09-09] MEDS: Senokot S 8.6-50 MG TAB PO SCH ×2 (08:48→21:30)
[2019-09-09] MEDS: Multivitamin W/ Minerals 1 TAB PO SCH (08:48)
[2019-09-09] MEDS: Ferrous Gluconate 324 MG TAB PO SCH ×2 (08:49→21:30)
[2019-09-09] MEDS: Enoxaparin Sodium 40 MG/0.4 ML SYRINGE SC SCH (08:49)
[2019-09-09] MEDS: Insulin Glargine 15 UNITS in Pre-Filled Syringe 1 EACH SC SCH ×2 (10:06→21:30)
[2019-09-09] MEDS: HumaLOG 300 UNITS/3 ML VIAL SC PRN ×3 (11:58→21:34)
[2019-09-09] MEDS: Metoclopramide HCl 10 MG TAB PO SCH ×3 (11:58→21:30)
--- NOTE | 2019-09-09 13:37 | PDOC.HOSPP ---
- Subjective Encounter Date: 09/09/19 Encounter Time: 13:33 Subjective: Mr. Mcwilliams was seen today in follow-up of diabetic foot ulcer. He does not have any new complaints. The nausea and vomiting has improved. - Objective Vital Signs & Weight: Vital Signs (12 hours) Temp Pulse Resp BP Pulse Ox 09/09/19 10:57 98.3 F 94 14 108/72 95 09/09/19 08:45 93 L 09/09/19 07:52 98.1 F 93 14 110/70 93 L 09/09/19 03:31 98.4 F 87 16 113/75 93 L Weight Admit Weight 125 lb 15.904 oz Weight 125 lb 15.904 oz I&O: 09/08/19 09/09/19 09/10/19 06:59 06:59 06:59 Intake Total 1020 800 480 Output Total 800 700 Balance 220 100 480 Result Diagrams: 09/08/19 05:10 09/08/19 15:56 Additional Labs: Accuchecks 09/09/19 09/09/19 09/08/19 11:02 05:35 20:38 POC Glucose 190 H 105 135 H 09/08/19 16:09 POC Glucose 131 H Hospitalist ROS - Medication Medications: Active Medications Generic Name Dose Route Start Last Admin Trade Name Freq PRN Reason Stop Dose Admin Enoxaparin Sodium 40 mg 09/05/19 09:00 09/09/19 08:49 Lovenox SC 40 mg 0900 DUC Administration Ferrous Gluconate 324 mg 09/05/19 21:00 09/09/19 08:49 Fergon PO 324 mg BID DUC Administration Sodium Chloride 1,000 mls @ 65 mls/hr 09/05/19 09:30 09/09/19 05:49 Normal Saline 0.9% IV Not Given .[id number] DUC Ceftriaxone Sodium 2 gm/ 100 mls @ 200 mls/hr 09/05/19 17:00 09/08/19 18:02 Sodium Chloride IVPB 100 mls Q24HR DUC Administration Insulin Glargine 15 units/ 0.15 mls @ 0 mls/hr 09/07/19 21:00 09/09/19 10:06 Miscellaneous Medication SC 0.15 mls BID DUC Administration Promethazine HCl 25 mg/ Sodium 51 mls @ 204 mls/hr 09/08/19 13:39 09/08/19 16 :59 Chloride IVPB 51 mls Q6H PRN Administration Nausea/Vomiting Insulin Human Lispro 0 units 09/04/19 21:32 09/09/19 11:58 Humalog SC 2 unit .MILD SLIDING SCALE PRN Administration Mild Correctional Scale Iron/Minerals/Multivitamins 1 tab 09/06/19 09:00 09/09/19 08:48 Theragran M PO 1 tab DAILY DUC Administration Loperamide HCl 2 mg 09/07/19 01:44 09/07/19 02:46 Imodium PO 2 mg Q4H PRN Administration Diarrhea/Loose Stools Metoclopramide HCl 10 mg 09/09/19 11:30 09/09/19 11:58 Reglan PO 10 mg ACHS DUC Administration Ondansetron HCl 4 mg 09/05/19 09:29 09/08/19 09:02 Zofran Odt PO 4 mg Q6H PRN Administration Nausea/Vomiting Ondansetron HCl 4 mg 09/05/19 09:29 09/08/19 11:33 Zofran IVP 4 mg Q6H PRN Administration Nausea/Vomiting Senna/Docusate Sodium 2 tab 09/05/19 21:00 09/09/19 08:48 Senokot S PO 2 tab BID DUC Administration Sodium Chloride 10 ml 09/05/19 09:29 09/07/19 12:31 Flush - Normal Saline IVF 10 ml PRN PRN Administration Saline Flush Tramadol HCl 50 mg 09/07/19 20:29 09/08/19 09:02 Ultram PO 50 mg Q4H PRN Administration Moderate Pain (4-6) - Exam Eye: PERRL Heart: RRR, no murmur, no gallops, no rubs, normal peripheral pulses Respiratory: CTAB, no wheezes, no rales, no ronchi, normal chest expansion, no tachypnea, normal percussion Gastrointestinal: soft, non-tender, non-distended, normal bowel sounds, no palpable masses, no hepatomegaly Extremities: no cyanosis, no clubbing Hosp A/P (1) Nausea & vomiting Code(s): R11.2 - NAUSEA WITH VOMITING, UNSPECIFIED Status: Acute (2) Abdominal pain Code(s): R10.9 - UNSPECIFIED ABDOMINAL PAIN Status: Acute (3) Diabetic foot infection Code(s): E11.628 - TYPE 2 DIABETES MELLITUS WITH OTHER SKIN COMPLICATIONS; L08.9 - LOCAL INFECTION OF THE SKIN AND SUBCUTANEOUS TISSUE, UNSP Status: Acute (4) DM type 1 (diabetes mellitus, type 1) Status: Chronic - Plan * Nausea and vomiting- resolved- this may have been due to diabetic gastroparesis- will give a short course of reglan * Diabetic foot infection- continue Rocephin IV * DM- blood glucose is stable * Out patient antibiotics have been arranged, but not the wound vac- will need this or change in wound care instructions prior to discharge.
[2019-09-09] MEDS: cefTRIAXone\\ROCEPHIN 2 GM in Sodium Chloride 0.9% 100 ML IVPB SCH (17:17)
[2019-09-10] MEDS: Metoclopramide HCl 10 MG TAB PO SCH ×3 (06:32→16:08)
[2019-09-10] MEDS: HumaLOG 300 UNITS/3 ML VIAL SC PRN ×3 (06:39→17:20)
[2019-09-10] MEDS: Ferrous Gluconate 324 MG TAB PO SCH (09:08)
[2019-09-10] MEDS: Senokot S 8.6-50 MG TAB PO SCH (09:08)
[2019-09-10] MEDS: Insulin Glargine 15 UNITS in Pre-Filled Syringe 1 EACH SC SCH (09:09)
[2019-09-10] MEDS: Enoxaparin Sodium 40 MG/0.4 ML SYRINGE SC SCH (09:09)
[2019-09-10] MEDS: Multivitamin W/ Minerals 1 TAB PO SCH (09:09)
[2019-09-10] MEDS: Sodium Chloride 0.9% 1,000 ML IV SCH (12:05)
[2019-09-10] MEDS: Loperamide HCl 2 MG CAP PO PRN (13:33)
[2019-09-10 16:08] VITALS: BP 106/68; TEMP 99.7
[2019-09-10] MEDS: cefTRIAXone\\ROCEPHIN 2 GM in Sodium Chloride 0.9% 100 ML IVPB SCH (16:08)
--- NOTE | 2019-09-11 22:59 | DIS ---
DATE OF ADMISSION: 09/04/2019 DATE OF DISCHARGE: 09/10/2019 DISCHARGE DISPOSITION: Home with outpatient wound care. DISCHARGE DIAGNOSES: 1. Diabetic foot infection of the right foot. 2. Type 1 diabetes mellitus. DISCHARGE MEDICATIONS: Rocephin 2 g IV daily, end date of 10/18. CODE STATUS: Full code. ALLERGIES: NO KNOWN DRUG ALLERGIES. HOSPITAL COURSE: Mr. Mcwilliams is a pleasant 29-year-old gentleman who was admitted to the hospital with worsening fever and infection. He was admitted and MRI demonstrated worsening infection, abscess of the mid foot. He was seen by General Surgery and had I and D and amputation of the 2nd to 5th toes on the right foot. A wound VAC was placed and he was hospitalized for several days until the area stabilized. Outpatient antibiotics were arranged as well as an outpatient wound VAC and after this was done, he was subsequently discharged home. Instructions were given if he had worsening fever or infection symptoms to return to the hospital. Job ID: [id number]
--- NOTE | 2019-09-14 06:39 | PQF ---
Issac Mcwilliams Jr, TONI MD [id number] CLINICAL DOCUMENTATION CLARIFICATION FORM: POST DISCHARGE Addendum to original discharge summary date: ____ Late entry note date: __ DATE: 09/14/19 ATTN: Woo Lafleur Please exercise your independent, professional judgment in responding to the clarification form. Clinical indicators are provided on the bottom of this form for your review Please check appropriate box(s) to clarify if the Sepsis diagnosis has been ruled in or ruled out [ X] Ruled in diagnosis [ ] Continue to treat [ ] Resolved [ ] Ruled out diagnosis [ ] Cannot rule out diagnosis [ ] Other diagnosis [ ] Unable to determine In addition, please specify: Present on Admission (POA): [ X ] Yes [ ] No [ ] Unable to determine For continuity of documentation, please document condition throughout progress notes and discharge summary. Thank You. CLINICAL INDICATORS - SIGNS / SYMPTOMS / LABS Labs 09/04 WBC 13.0, Lactic acid 1.0 H&P p1 09/04 Dr Gunderson presents to the hospital for generalized weakness, fever and also right foot pain H&P p2 09/04 Dr Gunderson He did also have MRI of lower extremity, which indicated significant severe infection with midfoot with osteomyelitis and large multuloculated abscesses surrounding the tarsometatarsal joint H&P p2 09/04 Dr Gunderson Sepsis. The patien has received about 4L of normal saline Hospitalist PN p1 09/05 Bacteremia due to Gram-postive bateria RISK FACTORS H&P p1 09/04 - DM type 1 H&P p2 09/04 Osteomyelitis H&P p2 09/04 Right foot Cellulitis TREATMENTS JAN 24 IV Vancomycin JAN 24 IV Zosyn JAN 24 4 L normal saline Operative report Debridement of Right midfoot with removal of portion of the base of 2nd throughh 5th metatarsal (This form is maintained as a part of the permanent medical record) 2015 [employer], [employer] All Rights Reserved [email or web address] [not provided] MTDD
--- NOTE | 2019-09-20 17:53 | PQF ---
Issac Mcwilliams Jr, TONI MD [id number] CLINICAL DOCUMENTATION CLARIFICATION FORM: POST DISCHARGE Addendum to original discharge summary date: ____ Late entry note date: __ DATE: 08/20/19 Woo Lafleur Please exercise your independent, professional judgment in responding to the clarification form. Clinical indicators are provided on the bottom of this form for your review Please check appropriate box(s) to clarify if the following diagnosis has been ruled in or ruled out: Septic Shock [ ] Ruled in diagnosis [ ] Continue to treat [ ] Resolved [ ] Ruled out diagnosis [ ] Cannot rule out diagnosis [ ] Other diagnosis [ ] Unable to determine In addition, please specify: Present on Admission (POA): [ ] Yes [ ] No [ ] Unable to determine For continuity of documentation, please document condition throughout progress notes and discharge summary. Thank You. CLINICAL INDICATORS - SIGNS / SYMPTOMS / LABS ED provider p2 09/04 BP 89/55, Pulse 119. ED provider p3 09/04 Septic Shock Labs 09/04 WBC 13.0, Lactic acid 1.0 H&P p1 09/04 Dr Gunderson presents to the hospital for generalized weakness, fever and also right foot pain H&P p2 09/04 Dr Gunderson He did also have MRI of lower extremity, which indicated significant severe infection with midfoot with osteomyelitis and large multuloculated abscesses surrounding the tarsometatarsal joint H&P p2 09/04 Dr Gunderson Sepsis. The patien has received about 4L of normal saline Hospitalist PN p1 09/05 Bacteremia due to Gram-postive bateria RISK FACTORS H&P p1 09/04 - DM type 1 H&P p2 09/04 Osteomyelitis H&P p2 09/04 Right foot Cellulitis TREATMENTS JAN 24 IV Vancomycin JAN 24 IV Zosyn JAN 24 4 L normal saline Operative report Debridement of Right midfoot with removal of portion of the base of 2nd throughh 5th metatarsal (This form is maintained as a part of the permanent medical record) 2014 [employer], [employer]. All Rights Reserved [email or web address] [email or web address] [not provided] MTDD
== END 2019-09-10 18:00 | disposition home or self-care (01) | DRG 854 ==
LOC: ERS 18:37 → SURG B 20:46 → ERHOLD 20:48 → SURG B 09-05 10:53
PROVIDERS: ADMIT Internal Medicine; ATTEND Internal Medicine
PROC: 0Y6M0ZB Detachment at Right Foot, Partial 2nd Ray, Open Approach (ICD-10-PCS; principal; 2019-09-05)
PROC: 0Y6M0ZC Detachment at Right Foot, Partial 3rd Ray, Open Approach (ICD-10-PCS; 2019-09-05)
PROC: 0Y6M0ZD Detachment at Right Foot, Partial 4th Ray, Open Approach (ICD-10-PCS; 2019-09-05)
PROC: 0Y6M0ZF Detachment at Right Foot, Partial 5th Ray, Open Approach (ICD-10-PCS; 2019-09-05)
PROC: 3E02340 Introduction of Influenza Vaccine into Muscle, Percutaneous Approach (ICD-10-PCS; 2019-09-06)
PROC: 02HV33Z Insertion of Infusion Device into Superior Vena Cava, Percutaneous Approach (ICD-10-PCS; 2019-09-07)
PROC: B548ZZA Ultrasonography of Superior Vena Cava, Guidance (ICD-10-PCS; 2019-09-07)
DX: A40.1 Sepsis due to streptococcus, group B (principal); L03.115 Cellulitis of right lower limb; M86.8X7 Other osteomyelitis, ankle and foot; M00.9 Pyogenic arthritis, unspecified; S92.351K Displaced fracture of fifth metatarsal bone, right foot, subsequent encounter for fracture with nonunion; E10.69 Type 1 diabetes mellitus with other specified complication; E10.43 Type 1 diabetes mellitus with diabetic autonomic (poly)neuropathy; K31.84 Gastroparesis; X58.XXXD Exposure to other specified factors, subsequent encounter; Z23 Encounter for immunization; Z79.4 Long term (current) use of insulin
CPT/HCPCS: 36415; 36416; 36569; 71045; 74022; 80048; 80053; 81003; 81015; 82010; 82550; 83605; 83690; 85025; 85027; 87040; 87070; 87077; 87086; 87149; 87186; 87205; 87324; 87449; 87804; 93005; 96361; 96365; 96366; 96368; 96375; C1751; J0696; J1644; J1650; J1815; J1885; J2001; J2405; J2543; J2550; J2704; J3010; J3370; J3490; J7050; Q0162

== ENCOUNTER 2020-11-19 01:20 | Inpatient (IN) | payer SELFPAY ==
[2020-11-19] MEDS ORDERED: Vancomycin 1 GM/200 ML BAG ONE (03:10)
[2020-11-19 03:23] LABS: #Eosinphils 0.2 thou/uL (0.0-0.7); #Lymphocytes 2.3 thou/uL (1.20-3.40); #Monocytes 0.6 thou/uL (0.11-0.59); #Neutrophils 6.3 thou/uL (1.40-6.50); %Basophils 0.3 % (0.0-1.0); %Eosinophils 1.7 % (0.0-10.0); %Lymphocytes 24.8 % (21.0-51.0); %Monocytes 6.1 % (0.0-10.0); %Neutrophils 67.1 % (42.0-75.0); Hemoglobin 10.3 g/dL (14.0-18.0); Mean Corpuscular HGB CONC 32.1 g/dL (32.0-36.0); Mean Corpuscular Hemoglobin 27.6 pg (27.0-31.0); Mean Corpuscular Volume 85.9 fL (78.0-98.0); Mean Platelet Volume 6.6 fL (7.4-10.4); Platelet Count 396 thou/uL (130-400); RBC Distribution Width 12.1 % (11.5-14.5); Red Blood Cell (RBC) Count 3.73 mill/uL (4.70-6.10); White Blood Cell (WBC) Count 9.3 thou/uL (4.8-10.8)
[2020-11-19 03:45] LABS: ALT (SGPT) 11 U/L (8-55); AST (SGOT) 13 U/L (5-34); Albumin 3.2 g/dL (3.5-5.0); Alkaline Phosphatase 91 U/L (40-110); Anion Gap 12 mmol/L (10-20); BUN (Urea Nitrogen) 22 mg/dL (8.9-20.6); Bilirubin, Total 0.2 mg/dL (0.2-1.2); Calc. Creatinine Clearance 0 mL/min (70-130); Calcium 8.8 mg/dL (7.8-10.44); Carbon Dioxide 27 mmol/L (22-29); Chloride 102 mmol/L (98-107); Globulin 4.6 g/dL (2.4-3.5); Glucose 401 mg/dL (70-105); Potassium 4.2 mmol/L (3.5-5.1); Protein, Total 7.8 g/dL (6.0-8.3); Sodium 137 mmol/L (136-145)
[2020-11-19] MEDS ORDERED: Insulin Regular 300 UNITS/3 ML VIAL ONE (04:22)
--- NOTE | 2020-11-19 05:40 | PDOC.HHP ---
Hospitalist HPI - History of Present Illness Pain, ulcer of right foot History of Present Illness: This is a 30-year-old male patient with a history of diabetes mellitus who presents with ongoing pain of his right foot. He has had a chronic ulcer on the sole of his right foot which he has been following up with Dr. Young. He was recently started on doxycycline. His foot has progressively become worseleading him to come to the ED for further evaluation. At presentation his blood pressure was 123/90, pulse 97, respirations 16 and sats 98% on room air. CBC showed hemoglobin of 10.3, BMP was essentially normal besides hyperglycemia for 1. Covid test was negative. He was started on vancomycin and hospitalist team consulted for admission. Hospitalist ROS - Review of Systems Constitutional: denies: fever, chills, sweats, weakness Eyes: denies: pain, vision change, conjunctivae inflammation ENT: denies: ear pain, ear discharge Respiratory: denies: cough, shortness of breath, hemoptysis, SOB with excertion Cardiovascular: denies: chest pain, palpitations, orthopnea, paroxysmal noc. dyspnea Gastrointestinal: denies: nausea, vomiting, abdominal pain, diarrhea Genitourinary: denies: dysuria, frequency, incontinence, hematuria Musculoskeletal: reports: foot pain. denies: neck pain, shoulder pain Neurological: denies: weakness, numbness, incoordination All other systems reviewed; all pertinent +/- noted in HPI/Subj - Medication Medications: Medications: Can refer to ambulatory order list. Allergies: No known drug allergies Hospitalist History - Past Medical History Endocrine: reports: Diabetes - Past Surgical History Past Surgical History: reports: no pertinent history - Family History Family History: reports: diabetes mellitus - Social History Smoking Status: Never smoker Alcohol: reports: None Living Situation: With Family - Exam General Appearance: awake alert ENT: normocephalic atraumatic, moist mucosa Heart: RRR, no murmur, no gallops, no rubs Respiratory: CTAB, no wheezes, no rales Gastrointestinal: soft, non-tender, non-distended, normal bowel sounds Extremities: no cyanosis, no clubbing, no edema Neurological: cranial nerve grossly intact, no weakness Psychiatric: normal affect, A&O x 3 Hospitalist Results - Labs Result Diagrams: 11/20/20 05:48 11/20/20 05:48 Lab results: WBC 9.3 thou/uL (4.8-10.8) 11/19/20 03:08 Hgb 10.3 g/dL (14.0-18.0) L 11/19/20 03:08 Hct 32.0 % (42.0-52.0) L 11/19/20 03:08 MCV 85.9 fL (78.0-98.0) 11/19/20 03:08 Plt Count 396 thou/uL (130-400) 11/19/20 03:08 Neutrophils % 67.1 % (42.0-75.0) 11/19/20 03:08 Sodium 137 mmol/L (136-145) 11/19/20 03:08 Potassium 4.2 mmol/L (3.5-5.1) 11/19/20 03:08 Chloride 102 mmol/L (98-107) 11/19/20 03:08 Carbon Dioxide 27 mmol/L (22-29) 11/19/20 03:08 BUN 22 mg/dL (8.9-20.6) H 11/19/20 03:08 Creatinine 1.16 mg/dL (0.7-1.3) 11/19/20 03:08 Glucose 401 mg/dL (70-105) H 11/19/20 03:08 Calcium 8.8 mg/dL (7.8-10.44) 11/19/20 03:08 Total Bilirubin 0.2 mg/dL (0.2-1.2) 11/19/20 03:08 AST 13 U/L (5-34) 11/19/20 03:08 ALT 11 U/L (8-55) 11/19/20 03:08 Alkaline Phosphatase 91 U/L (40-110) 11/19/20 03:08 Serum Total Protein 7.8 g/dL (6.0-8.3) 11/19/20 03:08 Albumin 3.2 g/dL (3.5-5.0) L 11/19/20 03:08 Hospitalist H&P A/P - Plan Plan: This is a 30-year-old male patient with a history of diabetes mellitus presenting with chronic ulcer concerning for osteomyelitis of his right foot. Diabetic foot ulcer/osteomyelitis We will continue antibiotics on Zosyn Consult ID Consult surgery Diabetes mellitus Start correctional insulin Monitor glucose. CODE STATUSfull code VT prophylaxis left
[2020-11-19] MEDS ORDERED: Dextrose 50% Abboject 50 ML SYRINGE SLOW IVP PRN (05:45)
[2020-11-19] MEDS ORDERED: Dextrose 5% in Water 1,000 ML IV PRN (05:45)
[2020-11-19 06:12] VITALS: BMI 17.9
[2020-11-19] MEDS: HumaLOG 300 UNITS/3 ML VIAL SC PRN ×3 (06:49→20:10)
--- NOTE | 2020-11-19 08:26 | ULT ---
Arterial duplex sonogram right lower extremity HISTORY: Right foot ulcer. Vascular disease. FINDINGS: Reactive appearing slightly enlarged lymph nodes are evident at the right groin. Good color and spectral Doppler flow with triphasic waveform in the common femoral and deep femoral, femoral and popliteal arteries. No abnormally elevated peak systolic velocities. Monophasic arterial flow demonstrated within the anterior tibial, dorsalis pedis, and posterior tibial arteries. IMPRESSION : Good arterial flow to the right lower extremity. No evidence of significant stenosis.
[2020-11-19] MEDS: Enoxaparin Sodium 40 MG/0.4 ML SYRINGE SC SCH (09:10)
[2020-11-19] MEDS: Piperacillin/Tazobactam 4.5 GM in Sodium Chloride 0.9% 100 ML IVPB SCH ×3 (09:10→21:27)
--- NOTE | 2020-11-19 09:40 | RAD ---
Exam: Right foot 3 views: HISTORY: Pain, infection, diabetes, open wound COMPARISON: 09/04/2019 FINDINGS: Extensive disruption of the mid foot joints particularly the tarsometatarsal joint region with consid erable overall progressive deformity and considerable fragmentation and bony disorganization evidence for Charcot joint and diabetic osteoarthropathy change. Bandage material overlies the latera l and plantar aspect of the foot with some minimal soft tissue gas evidence for infection within the soft tissues. Stable deformity of the distal third metatarsal. No overt acute fracture. IMPRESSION: Very markedly deformed midfoot evidence for Charcot joint and diabetic osteoarthropathy. Bandage mate rial laterally and on the plantar aspect of the foot with soft tissue air evidence for soft tissue infection. Given the severe deformity, underlying osteomyelitis certainly is not excluded.
[2020-11-19] MEDS ORDERED: Insulin Glargine 15 UNITS in Pre-Filled Syringe 1 EACH SC SCH ×2 (09:45→21:00)
[2020-11-19 12:57] LABS: SARS-CoV-2 MS2 Positive; SARS-CoV-2 N Gene Negative; SARS-CoV-2 S Gene Negative; SARS-CoV-2 by NAA Not Detected (NotDetected); SARS-CoV-2 orf1ab Negative
[2020-11-19] MEDS ORDERED: Saccharomyces boulardii 250 MG CAP PO SCH (13:00)
[2020-11-19] MEDS: Sodium Chloride 0.9% 1,000 ML IV SCH (13:30)
[2020-11-19] MEDS: Vancomycin 1 GM in Premix Bag 1 BAG IVPB SCH (15:15)
[2020-11-19 17:18] LABS: HIV (1/2) Antibody/Antigen Non-Reactive (NonReactive)
--- NOTE | 2020-11-19 20:44 | CON ---
DATE OF CONSULTATION: 11/19/2020 REASON FOR CONSULT: Right foot ulcer with inflammatory changes in the setting of Charcot arthropathy. HISTORY OF PRESENT ILLNESS: 30-year-old whom I had seen in August 2019 with a history of type 1 diabetes, neuropathy. He had stepped on a nail on April 04 and then he sustained a distracted and displaced 5th metatarsal fracture with nonunion. The patient had excision of the 5th metatarsal proximal tubercle and wound was irrigated. He was treated with four weeks of oral Augmentin for E faecalis isolated from the site. In June 2019, he had mild edema at the site and incision had healed, had no pain, no erythema. On July 21, he had some intermittent pain in the right foot, but no erythema or tenderness, only mild swelling, did well until he was admitted on September 05 with fever and chills after receiving influenza vaccine. In the emergency room, he was noted to have inflammatory changes in right foot with destruction of the tarsometatarsal joints and 2nd to 5th ray areas of possible osteomyelitis. An abscess was demonstrated on MRI, and he had operative debridement by Dr. Mckeon. The operative report was reviewed, and longitudinal incision was made 2 inches in length centered over the 2nd and 3rd tarsometatarsal joints. Blunt dissection down to the area of purulent drainage encountered consistent with an abscess. There was drainage of purulent fluid in the base of the 2nd and 3rd metatarsals, partial removal of the dorsum of the 2nd and 3rd metatarsals performed using rongeur. Additional incision made on the dorsal lateral aspect of the mid foot over the 4th and 5th metatarsals. Another abscess was located and drained. Cultures obtained. The 4th and 5th metatarsal bases were also infected and tarsometatarsal joints were unstable. The portion of the dorsum of the 4th and 5th metatarsals also removed with a rongeur. Wounds were irrigated and microbiology from this procedure yielded group B strep, all three samples. So, most likely this was hematogenous spread to the area. He was treated for protracted time with Rocephin and everything healed. He felt back normal and did not have any problems until now or maybe a week or two ago when he went back to Dr. Mckeon because the foot was starting to swell up again. He was given oral doxycycline, I believe, and persisted with pain, so he ended up admitted, and x-ray showed the changes discussed below. He is having mild pain at the site when he is not ambulating, probably from neuropathy. No headaches, sore throat, odynophagia, or dysphagia. No visual symptoms, cough, or sputum production. No dyspnea. No chest pain. No abdominal pain or diarrhea. No genitourinary symptoms. He started having diarrhea actually now after being admitted, probably antibiotic related. PAST MEDICAL HISTORY: Type 1 diabetes, neuropathy, Charcot right foot, osteomyelitis, metatarsal area with surgical debridement and then treatment for protracted time and resolution of inflammatory process until now. SOCIAL HISTORY: He is not working after developing this foot problem. Does not smoke. ALLERGIES: NONE. CURRENT MEDICATIONS: 1. Electrolyte infusions. 2. Enoxaparin. 3. Vancomycin. 4. Zosyn. FAMILY HISTORY: Diabetes. PHYSICAL EXAMINATION: VITAL SIGNS: Normal. He is saturating 98 on room air. GENERAL: Appears in no distress. HEENT: Little bit of seborrheic dermatitis in the facial area. He has no oral thrush. Numerous teeth in place in good shape. NECK: Supple. LUNGS: Symmetric. Clear breath sounds. ABDOMEN: Soft, not distended or tender. Bowel sounds are normal. GENITAL: Normal. EXTREMITIES: Pulses are 1+ in dorsalis pedis and popliteal. He has a round shaped seemingly superficial ulcer in the bottom aspect of the right plantar surface, a little bit of undermining, not much in terms of erythema noted in the dorsal aspect. There is obvious swelling from his Charcot arthropathy. NEURO: Nonfocal including cognitive function. LABORATORY DATA: In his lab data, the latest findings are creatinine 1.16, GFR 74. Liver profile normal. Albumin 3.2. White cell count 9.3, hemoglobin 10.3, platelets 396 with normal differential. SARS-CoV-2 PCR negative. The patient had a foot x-ray this morning, which demonstrated extensive disruption in midfoot joints, particularly the tarsometatarsal joint region with progressive deformity, fragmentation, bony disorganization. There is some minimal soft tissue gas within soft tissues. This gas is noted in a linear fashion above the ulcer. So, there must be some penetration and infection of the soft tissues. ASSESSMENT: Type 1 diabetes, neuropathy, Charcot, prior osteomyelitis of metatarsals in 2019, treated with presumed resolution, inflammatory process, and now with recrudescence of inflammatory process with those destructive changes in the mid foot region. DISCUSSION: The differential diagnosis is osteomyelitis plus-minus Charcot or just Charcot with soft tissue infection. We will order an MRI to further characterize these changes. Continue antimicrobials. Hopefully, this is just soft tissue inflammatory change, and the rest is all Charcot. Otherwise, it will be hard problem to solve short of amputation. Job ID: [id number]
[2020-11-20] MEDS: Sodium Chloride 0.9% 1,000 ML IV SCH ×3 (02:14→17:46)
[2020-11-20] MEDS: Vancomycin 1 GM in Premix Bag 1 BAG IVPB SCH ×2 (03:04→15:51)
[2020-11-20] MEDS: Piperacillin/Tazobactam 4.5 GM in Sodium Chloride 0.9% 100 ML IVPB SCH ×2 (05:53→14:27)
[2020-11-20 06:10] LABS: #Eosinphils 0.2 thou/uL (0.0-0.7); #Lymphocytes 2.2 thou/uL (1.20-3.40); #Monocytes 0.4 thou/uL (0.11-0.59); #Neutrophils 1.8 thou/uL (1.40-6.50); %Basophils 0.5 % (0.0-1.0); %Eosinophils 3.3 % (0.0-10.0); %Lymphocytes 47.3 % (21.0-51.0); %Monocytes 9.5 % (0.0-10.0); %Neutrophils 39.4 % (42.0-75.0); Mean Corpuscular HGB CONC 30.9 g/dL (32.0-36.0); Mean Corpuscular Hemoglobin 26.5 pg (27.0-31.0); Mean Platelet Volume 6.4 fL (7.4-10.4); Platelet Count 379 thou/uL (130-400); Red Blood Cell (RBC) Count 3.77 mill/uL (4.70-6.10); White Blood Cell (WBC) Count 4.7 thou/uL (4.8-10.8)
[2020-11-20 06:17] LABS: Hemoglobin A1c Greater than 14.0 % (4.0-6.0)
[2020-11-20 06:31] LABS: Anion Gap 10 mmol/L (10-20); BUN (Urea Nitrogen) 10 mg/dL (8.9-20.6); Calc. Creatinine Clearance 118 mL/min (70-130); Calcium 8.6 mg/dL (7.8-10.44); Carbon Dioxide 29 mmol/L (22-29); Chloride 105 mmol/L (98-107); Glucose 152 mg/dL (70-105); Potassium 3.8 mmol/L (3.5-5.1); Sodium 140 mmol/L (136-145)
[2020-11-20] MEDS: Enoxaparin Sodium 40 MG/0.4 ML SYRINGE SC SCH (08:28)
[2020-11-20] MEDS: Saccharomyces boulardii 250 MG CAP PO SCH (08:29)
[2020-11-20] MEDS ORDERED: Insulin Glargine 10 UNITS in Pre-Filled Syringe SC SCH (09:00)
[2020-11-20] MEDS ORDERED: Magnevist 469MG/ML 20 ML VIAL ONE (12:27)
--- NOTE | 2020-11-20 14:09 | MRI ---
EXAM: MRI right foot with and without IV contrast PROVIDED CLINICAL HISTORY: Chronic wound with pain and swelling COMPARISON: 09/04/2019 MRI Right foot radiographs 11/19/2020 FINDINGS: There is extensive periarticular signal alteration about the Lisfranc joint, with associated subluxat ion at the Lisfranc, tarsometatarsal and talonavicular joints. Signal alteration is also demonstrated within the cuneiforms, navicular and cuboid. The talus and calcaneus demonstrate normal signal. There is extensive signal alteration involving the fifth metatarsal diffusely and signal alteration involving the second, third and fourth metatarsal shafts and metatarsal bases. Signal abnormality appears most marked involving the fifth metatarsal and lateral cuboid. There is ev idence for subjacent plantar wound demonstrating associated susceptibility artifact compatible with gas. There is no evidence for a focal fluid collection to suggest abscess. There is no significant regional tenosynovial fluid. There is nonspecific patchy signal alteration fo chris involving the lateral aspect of the distal fibula without definite contrast enhancement. There is extensive signal alteration involving the intrinsic foot musculature without evidence for in tramuscular fluid collection. There is no evidence for tibiotalar or subtalar joint effusion. The dorsal extensor and plantar flexor tendons appear intact as visualized. IMPRESSION: Findings compatible with osteomyelitis involving the lateral aspect of the Lisfranc joint superimpose d upon advanced diabetic neuroarthropathy. While it is not possible by MRI to distinguish with certainty which signal abnormality corresponds to osteomyelitis and which signal abnormality correspo nds to neuropathic change, the signal alteration within the fifth metatarsal and cuboid are strongly suspicious for osteomyelitis.
--- NOTE | 2020-11-20 14:11 | OP ---
DATE OF PROCEDURE: 11/20/2020 HISTORY OF PRESENT ILLNESS: Mr. Mcwilliams is a 30-year-old male who has diabetes mellitus and also severe diabetic neuropathy. The patient was seen by me for osteomyelitis and abscesses in the tarsometatarsal joints last year. I debrided the tarsometatarsal joints with removal of the bases of the metatarsals and the soft tissue did heal. The patient developed a chronic ulcer on the plantar aspect of the right foot under the region of the 4th and 5th metatarsal areas. He has been treated with antibiotics and wound care in [place]. He was last seen in the office by me last month and the open wound was present, but there was no significant erythema and mild swelling. He was continued on p.o. antibiotics, I believe they were tetracycline. As stated above, the patient has a very little pain in his foot because the diabetic neuropathy making the right foot as Charcot foot. The patient has been seen by the hospitalist and also by Dr. Young and currently into obtain a MRI to see if he has osteomyelitis. PLAN: I have already discussed with the patient that he does have severe infection in the right foot and he has significantly destabilized mid foot. I have discussed with him in the past that he probably will end up needing amputation because the chances of a Charcot infected foot, healing is very small, but we will see what the MRI shows and discuss this further with the hospitalist and with the infectious disease doctor. Job ID: [id number]
[2020-11-20 14:36] LABS: Vancomycin, Trough 12.6 ug/mL
--- NOTE | 2020-11-20 17:39 | PRG ---
DATE OF SERVICE: 11/20/2020 SUBJECTIVE: Mr. Mcwilliams had the MRI and the results are discussed below. He feels better with less inflammatory changes noted in the right foot. No other problems. No respiratory symptoms or abdominal pain. No diarrhea. He has been afebrile. OBJECTIVE: VITAL SIGNS: Other vital signs are normal. LUNGS: Clear. HEART: S1, S2, regular rate. ABDOMEN: Soft, not distended. EXTREMITIES: Right foot still with a round-shaped wound at the plantar surface, but there is less swelling, less erythema. LABORATORY DATA: White cell count is 4.7, hemoglobin 10, platelets 379 and creatinine 0.76. CRP is 4.63. MRI showed findings compatible with osteomyelitis, superimposed on diabetic neuroarthropathy. However, it is not possible to distinguish with certainty the signal abnormality that corresponds to osteomyelitis from the signal abnormality related to neuropathic change, but I think that the infection is likely in view of the response to antimicrobial therapy. Dr. Mckeon has evaluated the patient and naturally the amputation solution is the only one that can assure of cure of this process. The patient is not interested in amputation though, so I am going to go ahead and set up treatment in the outpatient setting. Job ID: [id number]
[2020-11-20] MEDS: cefTRIAXone\\ROCEPHIN 2 GM in Sodium Chloride 0.9% 100 ML IVPB SCH (17:46)
[2020-11-20] MEDS: HumaLOG 300 UNITS/3 ML VIAL SC PRN (19:34)
[2020-11-20] MEDS: metroNIDAZOLE 500 MG TAB PO SCH (20:53)
[2020-11-20] MEDS ORDERED: Insulin Glargine 10 UNITS in Pre-Filled Syringe 1 EACH SC SCH (21:00)
[2020-11-20] MEDS ORDERED: HumaLOG 300 UNITS/3 ML VIAL SC PRN (22:55)
--- NOTE | 2020-11-20 22:55 | PDOC.HOSPP ---
- Subjective Encounter Date: 11/20/20 Encounter Time: 14:00 Subjective: Patient seen and examined for diabetic foot infection. Denies any fever, chills or Nausea. No chest pain or shortness of breath reported - Objective Vital Signs & Weight: Vital Signs (12 hours) Temp Pulse Resp BP Pulse Ox 11/20/20 20:30 98.2 F 94 16 122/81 98 11/20/20 16:50 97.7 F 97 14 110/73 97 11/20/20 11:55 97.8 F 88 12 100/64 97 Weight Admit Weight 128 lb 4.8 oz Weight 128 lb 4.8 oz I&O: 11/19/20 11/20/20 11/21/20 06:59 06:59 06:59 Intake Total 1200 2880 2300 Output Total 3 Balance 1200 2877 2300 Result Diagrams: 11/20/20 05:48 11/20/20 05:48 Additional Labs: Accuchecks 11/20/20 11/20/20 11/20/20 19:26 15:23 10:52 POC Glucose 266 H 123 H 97 11/20/20 05:41 POC Glucose 141 H Abnormal Lab Results - Last 48 hrs 11/19/20 03:08: BUN 22 H, Albumin 3.2 L, Globulin 4.6 H, Albumin/Globulin Ratio 0.7 L 11/19/20 03:08: RBC 3.73 L, Hgb 10.3 L, Hct 32.0 L, MPV 6.6 L, Monocytes # 0.6 H 11/20/20 05:48: WBC 4.7 L, RBC 3.77 L, Hgb 10.0 L, Hct 32.4 L, MCH 26.5 L, MCHC 30.9 L, MPV 6.4 L, Neutrophils % 39.4 L 11/20/20 05:48: C-Reactive Protein 4.63 H 11/20/20 05:48: Hemoglobin A1c Greater than 14.0 H Microbiology - Entire Visit 11/19/20 03:08 Venous blood - Left Arm Blood Culture - Preliminary Specimen has been received and culture in progress. No Growth to date. 11/19/20 03:08 Venous blood - Right Arm Blood Culture - Preliminary Specimen has been received and culture in progress. No Growth to date. 11/19/20 17:30 Stool C. difficile GDH Antigen & Toxins - Final Radiology Reviewed by me: Yes (MRIosteomyelitis) Hospitalist ROS - Review of Systems Respiratory: denies: cough, dry, shortness of breath, hemoptysis, SOB with excertion, pleuritic pain, sputum, wheezing, other Cardiovascular: denies: chest pain, palpitations, orthopnea, paroxysmal noc. dyspnea, edema, light headedness, other - Medication Medications: Active Medications Generic Name Dose Route Start Last Admin Trade Name Freq PRN Reason Stop Dose Admin Enoxaparin Sodium 40 mg 11/19/20 09:00 11/20/20 08:28 Enoxaparin Sodium 40 Mg/0.4 Ml Syringe SC 40 mg 0900 DUC Administration Sodium Chloride 1,000 mls @ 100 mls/hr 11/19/20 13:00 11/20/20 17:46 Normal Saline 0.9% IV 1,000 mls .Q10H DUC Administration Insulin Glargine 10 units/ 0.1 mls @ 0 mls/hr 11/20/20 09:00 11/20/20 11:22 Miscellaneous Medication SC 0.1 mls QAM DUC Administration Insulin Glargine 10 units/ 0.1 mls @ 0 mls/hr 11/20/20 21:00 11/20/20 20:54 Miscellaneous Medication SC 0.1 mls HS DUC Administration Ceftriaxone Sodium 2 gm/ 100 mls @ 200 mls/hr 11/20/20 18:00 11/20/20 17:46 Sodium Chloride IVPB 100 mls 1800 DUC Administration Insulin Human Lispro 0 units 11/19/20 05:45 11/20/20 19:34 Humalog 300 Units/3 Ml Vial SC 4 unit .MILD SLIDING SCALE PRN Administration Mild Correctional Scale Metronidazole 500 mg 11/20/20 21:00 11/20/20 20:53 Metronidazole 500 Mg Tab PO 500 mg TID DUC Administration Saccharomyces Boulardii 250 mg 11/20/20 09:00 11/20/20 08:29 Saccharomyces Boulardii 250 Mg Cap PO 250 mg DAILY DUC Administration - Exam General Appearance: NAD Neck: supple, symmetric, no JVD Heart: no murmur, no gallops, no rubs, normal peripheral pulses Respiratory: no wheezes, no rales, no ronchi, normal chest expansion Gastrointestinal: soft, normal bowel sounds, no guarding, no rigidity Extremities: no cyanosis, no clubbing Extremities - other findings: Wound dressing Neurological: no new deficit Psychiatric: normal affect, A&O x 3 Hosp A/P - Plan Infected diabetic foot ulcer with osteomyelitis Uncontrolled diabetes mellitus type I with A1c > 14 Medication noncompliance Chronic anemia suspected due to nutritional deficiency Plan: Infectious disease and orthopedic input appreciated. Continue current dose of Lantus. Patient is not interested in surgical intervention at this time. Continue low-dose Lantus for now. Continue vancomycin and Zosyn. Monitor vancomycin level. Continue sliding scale continue other medications as above labs reviewed
[2020-11-20] MEDS ORDERED: Vancomycin 1 GM in Premix Bag 1 BAG IVPB SCH (23:59)
[2020-11-21] MEDS: Sodium Chloride 0.9% 1,000 ML IV SCH ×2 (05:22→15:01)
[2020-11-21] MEDS: HumaLOG 300 UNITS/3 ML VIAL SC PRN ×3 (06:04→17:39)
[2020-11-21] MEDS: Enoxaparin Sodium 40 MG/0.4 ML SYRINGE SC SCH (08:54)
[2020-11-21] MEDS: Saccharomyces boulardii 250 MG CAP PO SCH (08:54)
[2020-11-21] MEDS: metroNIDAZOLE 500 MG TAB PO SCH ×3 (08:54→20:58)
[2020-11-21] MEDS: Insulin Glargine 20 UNITS in Pre-Filled Syringe 1 EACH SC SCH (09:46)
--- NOTE | 2020-11-21 15:01 | PRG ---
DATE OF SERVICE: 11/21/2020 SUBJECTIVE: Mr. Mcwilliams had the MRI performed of his right foot yesterday. The findings were compatible with osteomyelitis involving the lateral aspect of Lisfranc joint, superimposed over advanced diabetic neuroarthropathy. The shingles were consistent with osteomyelitis in the 5th metatarsal and cuboid, although they are clouded by the neuropathy in the foot. PHYSICAL EXAMINATION: VITAL SIGNS: The patient is afebrile. His vital signs are stable. EXTREMITIES: Examination of the right foot shows the large open wound on the plantar lateral aspect of the midfoot. There is no surrounding erythema. The wound is approximately 4 cm in diameter. There is granulation tissue, but granulation tissue itself does not appear to be healthy. PLAN: The patient is uninterested in any type of amputation. Dr. Young is going to place him on long-term IV antibiotics and then possibly p.o. antibiotics to try to salvage the foot, which I fully agree with. The patient was instructed, though, that if he cannot get his foot to heal and cannot get rid of the infection, then he may at some point require amputation. I discussed with him the potential of doing a Syme's amputation versus a [id number] amputation. I feel that he has fairly good blood supply and either one would have a high chance of healing. The Syme's would be a good choice for him since only requires 10% more energy to ambulate with a prosthesis whereas the [id number] amputation requires 25%. I went through all this with the patient and we will see him in my office in about a month. Job ID: [id number]
[2020-11-21] MEDS ORDERED: Loperamide HCl 2 MG CAP PO PRN (17:07)
[2020-11-21] MEDS: cefTRIAXone\\ROCEPHIN 2 GM in Sodium Chloride 0.9% 100 ML IVPB SCH (17:39)
[2020-11-21] MEDS ORDERED: Insulin Glargine 20 UNITS in Pre-Filled Syringe 1 EACH SC SCH (21:00)
--- NOTE | 2020-11-21 22:47 | PDOC.HOSPP ---
- Subjective Encounter Date: 11/21/20 Encounter Time: 14:00 Subjective: Patient seen and examined for osteomyelitis. Denies any fever or chills. Pain Controlled. - Objective Vital Signs & Weight: Vital Signs (12 hours) Temp Pulse Resp BP Pulse Ox 11/21/20 20:42 98.5 F 92 16 113/75 98 11/21/20 17:13 98.3 F 93 14 114/77 97 11/21/20 12:05 98.0 F 98 14 102/71 98 Weight Admit Weight 128 lb 4.8 oz Weight 128 lb 4.8 oz I&O: 11/20/20 11/21/20 11/22/20 06:59 06:59 06:59 Intake Total 2880 2300 2620 Output Total 3 Balance 2877 2300 2620 Result Diagrams: 11/20/20 05:48 11/20/20 05:48 Additional Labs: Accuchecks 11/21/20 11/21/20 11/21/20 20:46 16:37 11:14 POC Glucose 196 H 211 H 296 H 11/21/20 05:24 POC Glucose 225 H Hospitalist ROS - Review of Systems Respiratory: denies: cough, dry, shortness of breath, hemoptysis, SOB with excertion, pleuritic pain, sputum, wheezing, other Cardiovascular: denies: chest pain, palpitations, orthopnea, paroxysmal noc. dyspnea, edema, light headedness, other - Medication Medications: Active Medications Generic Name Dose Route Start Last Admin Trade Name Freq PRN Reason Stop Dose Admin Enoxaparin Sodium 40 mg 11/19/20 09:00 11/21/20 08:54 Enoxaparin Sodium 40 Mg/0.4 Ml Syringe SC 40 mg 0900 DUC Administration Sodium Chloride 1,000 mls @ 100 mls/hr 11/19/20 13:00 11/21/20 15:01 Normal Saline 0.9% IV 1,000 mls .Q10H DUC Administration Ceftriaxone Sodium 2 gm/ 100 mls @ 200 mls/hr 11/20/20 18:00 11/21/20 17:39 Sodium Chloride IVPB 100 mls 1800 DUC Administration Insulin Glargine 20 units/ 0.2 mls @ 0 mls/hr 11/21/20 21:00 11/21/20 20:58 Miscellaneous Medication SC 0.2 mls HS DUC Administration Insulin Glargine 20 units/ 0.2 mls @ 0 mls/hr 11/21/20 09:00 11/21/20 09:46 Miscellaneous Medication SC 0.2 mls QAM DUC Administration Insulin Human Lispro 0 units 11/20/20 22:55 11/21/20 17:39 Humalog 300 Units/3 Ml Vial SC 4 unit .MODERATE SLIDING SC PRN Administration Moderate Correctional Scale Loperamide HCl 2 mg 11/21/20 17:07 11/21/20 17:39 Loperamide Hcl 2 Mg Cap PO 2 mg PRN PRN Administration Diarrhea/Loose Stools Metronidazole 500 mg 11/20/20 21:00 11/21/20 20:58 Metronidazole 500 Mg Tab PO 500 mg TID DUC Administration Saccharomyces Boulardii 250 mg 11/20/20 09:00 11/21/20 08:54 Saccharomyces Boulardii 250 Mg Cap PO 250 mg DAILY DUC Administration - Exam General Appearance: NAD Neck: supple, no JVD Heart: RRR, no gallops Respiratory: no wheezes, no ronchi Gastrointestinal: non-tender, normal bowel sounds Extremities: no cyanosis Hosp A/P - Plan DVT proph w/SCDs Infected diabetic foot ulcer with osteomyelitis Uncontrolled diabetes mellitus type I with A1c > 14 Medication noncompliance Chronic anemia suspected due to nutritional deficiency Plan: Change Lantus to 20 units bid. Continue ceftriaxone. PICC line placed today. Discontinue IV fluids. Continue sliding scale. Continue wound care. Await outpatient antibiotics after.
[2020-11-22] MEDS: HumaLOG 300 UNITS/3 ML VIAL SC PRN ×3 (05:28→17:16)
[2020-11-22] MEDS: metroNIDAZOLE 500 MG TAB PO SCH ×2 (09:09→16:11)
[2020-11-22] MEDS: Insulin Glargine 20 UNITS in Pre-Filled Syringe 1 EACH SC SCH (09:10)
[2020-11-22] MEDS: Saccharomyces boulardii 250 MG CAP PO SCH (09:16)
--- NOTE | 2020-11-22 11:43 | SPC ---
Left upper extremity PICC sonographic guided HISTORY: Osteomyelitis. FINDINGS: After explaining the procedure and answering all questions, the left upper extremity was pr epped and draped in usual sterile fashion. Sterile technique, buffered local anesthesia, sonographic guidance, and a 22-gauge needle were used t o carefully access the left basilic vein. Standard technique was used to place the tip of a 5 [place] single lumen PICC so that the tip lies at the level of the cavoatrial junction. Catheter was flushed and secured externally. Patient tolerated the procedure well and was returned in unchanged condition. Fluoroscopy time 0 seconds. IMPRESSION : Left upper extremity PICC is ready for use.
[2020-11-22 15:57] VITALS: BP 122/84; TEMP 97.9
[2020-11-22] MEDS: cefTRIAXone\\ROCEPHIN 2 GM in Sodium Chloride 0.9% 100 ML IVPB SCH (17:15)
--- NOTE | 2020-11-22 20:04 | PDOC.DS.DS ---
Provider - Provider Date of Admission: 11/19/20 04:07 Date of Discharge: 11/22/20 Admitting Provider: Hever Douglas MD Consultations: Infectious Disease, Orthopedics Primary Care Physician: Britni Nair NP Course - Hospital Course Hospital Course: Patient is a 30-year-old male with diabetes mellitus type 1 with chronic ulcer on his right foot presented to the hospital with pain along with worsening of the ulcer. Please refer to the history and physical for further details. The patient was admitted to the hospital with a diagnosis of diabetic foot infection with possible osteomyelitis. His foot x-ray was consistent with markedly deformed midfoot with evidence for Charcot's joint and diabetic osteoarthropathy. Arterial Doppler showed good arterial flow or to the right lower extremity without significant stenosis. Lower extremity MRI was consistent with osteomyelitis involving the lateral aspect of the Lisfranc joint superimposed upon advanced diabetic neuroarthropathy. Patient was evaluated by infectious disease as well as orthopedic. Amputation was recommended however patient requested antibiotics. A PICC line has been placed. He has been placed on IV ceftriaxone along with oral Flagyl till December 30. Weekly CBC CMP and CRP is recommended. He was also counseled on diabetes mellitus type 1. Final diagnosis: Infected diabetic foot ulcer with osteomyelitis Uncontrolled diabetes mellitus type I with A1c > 14 Medication noncompliance Chronic anemia suspected due to nutritional deficiency Time coordinating the discharge of this patient was 32 minutes. Patient was extensively counseled on diabetes mellitus type 1 as well as importance of taking his antibiotics. Side effects of antibiotics were discussed. Resuscitation Status: 11/19/20 05:40 Resuscitation Status Routine Resuscitation Status: FULL: Full Resuscitation - Labs Lab Results: 11/20/20 05:48 11/20/20 05:48 Microbiology - Entire Visit 11/19/20 03:08 Venous blood - Left Arm Blood Culture - Preliminary NO GROWTH AT 48 HOURS 11/19/20 03:08 Venous blood - Right Arm Blood Culture - Preliminary NO GROWTH AT 48 HOURS 11/19/20 17:30 Stool C. difficile [facility] Antigen & Toxins - Final - Physical Exam Vitals: Vital Signs (12 hours) Temp Pulse Resp BP Pulse Ox 11/22/20 15:56 97.9 F 66 16 122/84 96 11/22/20 11:36 97.7 F 79 16 136/91 H 99 Weight Admit Weight 128 lb 4.8 oz Weight 128 lb 4.8 oz Physical Exam: The patient was seen and examined on the day of discharge. Plan - Discharge Medications Prescriptions: metroNIDAZOLE [Flagyl] 500 mg PO TID #135 tab metroNIDAZOLE [Flagyl] 500 mg PO TID #135 tab Home Medications: Medication Instructions Recorded Confirmed Type Insulin Glargine,Hum.Rec.Anlog 20 units SC BID 04/14/19 11/19/20 History [Lantus] Saccharomyces boulardii [Florastor] 250 mg PO DAILY cap 11/22/20 Rx cefTRIAXone\ROCEPHIN [Rocephin] 2 gm IVPB 1800 vial 11/22/20 Rx metroNIDAZOLE [Flagyl] 500 mg PO TID #135 tab 11/22/20 Rx metroNIDAZOLE [Flagyl] 500 mg PO TID #135 tab 11/22/20 Rx Allergies: influenza virus vaccine qs 2018- (6 mos and up) [From Fluarix Quad [id number] (PF)] Allergy (Verified 11/19/20 06:13) No Known Drug Allergies Allergy (Verified 11/19/20 06:13) Headache FLU SHOT MADE ME HAVE HEADACHE AND FEEL BAD - Discharge Instructions Discharge Instructions:: after d/c pt to continue on iv Rocephin/po Flagyl. End date of tx = dec 30 weekly crp,cmp,cbc go to [facility] for Rocephin iv infusion daily at 6:00pm. - Follow up Plan Referrals: Britni Nair [employer] [Primary Care Provider] - 11/30/20 10:45 am (CALL MD'S OFFICE FOR FOLLOW UP APPOINTMENT.) Disposition: HOME
== END 2020-11-22 19:15 | disposition home or self-care (01) | DRG 74 ==
LOC: ERS 01:20 → 3SE 04:07 → SURG B 18:11
PROVIDERS: ADMIT Student in an Organized Health Care Education/Training Program; ATTEND Internal Medicine
PROC: 02HV33Z Insertion of Infusion Device into Superior Vena Cava, Percutaneous Approach (ICD-10-PCS; principal; 2020-11-22)
PROC: B548ZZA Ultrasonography of Superior Vena Cava, Guidance (ICD-10-PCS; 2020-11-22)
DX: E10.610 Type 1 diabetes mellitus with diabetic neuropathic arthropathy (principal); M86.8X7 Other osteomyelitis, ankle and foot; Z20.822 Contact with and (suspected) exposure to COVID-19; E10.69 Type 1 diabetes mellitus with other specified complication; E10.621 Type 1 diabetes mellitus with foot ulcer; L97.519 Non-pressure chronic ulcer of other part of right foot with unspecified severity; E10.65 Type 1 diabetes mellitus with hyperglycemia; D53.9 Nutritional anemia, unspecified; Z91.14 Patient's other noncompliance with medication regimen; Z79.899 Other long term (current) drug therapy; Z79.4 Long term (current) use of insulin
CPT/HCPCS: 36415; 36416; 36569; 80048; 80053; 80202; 83036; 83735; 85025; 86140; 87040; 87324; 87389; 87449; 87635; 93923; 96365; 96366; 96375; A9579; J0696; J1650; J1815; J2543; J3370; J3490; U0003

== ENCOUNTER 2021-05-06 23:09 | Emergency (ER) | payer SELFPAY ==
[2021-05-07] MEDS ORDERED: Ketorolac Tromethamine 30 MG/ML VIAL ONE (00:01)
[2021-05-07 01:02] LABS: Bacteria/HPF None Seen HPF (None Seen); Bilirubin Negative (Negative); Blood, Urine Negative (Negative); Clarity Clear (Clear); Glucose, Urine (Dipstick) 500 mg/dL (Negative); Ketone, Urine Negative (Negative); Leukocyte Negative Leu/uL (Negative); Nitrite Negative (Negative); Protein, Urine (Dipstick) 100 mg/dL (Neg-Trace); RBC/HPF 0-3 HPF (0-3); Specific Gravity, Urine 1.023 (1.002-1.036); Squamous Epithelial None Seen HPF (0-3); Urobilinogen Normal mg/dL (Less than 2); WBC/HPF 0-3 HPF (0-3); pH, Urine 5.5 (5.0-9.0)
== END 2021-05-07 01:34 | disposition home or self-care (01) ==
LOC: ERS 23:09
DX: M54.5 Low back pain (principal); E10.9 Type 1 diabetes mellitus without complications
CPT/HCPCS: 36416; 81003; 81015; 96372; 99283; J1885

== ENCOUNTER 2021-05-08 11:07 | Outpatient (CLI) | payer OTHER | END 2021-05-08 11:08 | disposition home or self-care (01) | LOC: BICRAD 11:07 | PROVIDERS: ATTEND Internal Medicine Infectious Disease | DX: M86.271 Subacute osteomyelitis, right ankle and foot (principal); M21.961 Unspecified acquired deformity of right lower leg; M85.871 Other specified disorders of bone density and structure, right ankle and foot ==

== ENCOUNTER 2021-05-09 22:37 | Inpatient (IN) | payer SELFPAY ==
[2021-05-09 23:50] LABS: #Lymphocytes 0.7 thou/uL (1.20-3.40); #Monocytes 0.3 thou/uL (0.11-0.59); #Neutrophils 6.4 thou/uL (1.40-6.50); %Basophils 0.2 % (0.0-1.0); %Eosinophils 0.4 % (0.0-10.0); %Lymphocytes 9.3 % (21.0-51.0); %Monocytes 3.9 % (0.0-10.0); %Neutrophils 86.2 % (42.0-75.0); Hemoglobin 9.3 g/dL (14.0-18.0); Mean Corpuscular HGB CONC 32.7 g/dL (32.0-36.0); Mean Corpuscular Volume 85.4 fL (78.0-98.0); Mean Platelet Volume 6.6 fL (7.4-10.4); Platelet Count 319 thou/uL (130-400); RBC Distribution Width 13.1 % (11.5-14.5); Red Blood Cell (RBC) Count 3.31 mill/uL (4.70-6.10); White Blood Cell (WBC) Count 7.5 thou/uL (4.8-10.8)
[2021-05-09] MEDS ORDERED: Acetaminophen 500 MG TAB ONE (23:57)
[2021-05-10 00:09] LABS: ALT (SGPT) 10 U/L (8-55); AST (SGOT) 14 U/L (5-34); Albumin 3.1 g/dL (3.5-5.0); Alkaline Phosphatase 106 U/L (40-110); Anion Gap 13 mmol/L (10-20); BUN (Urea Nitrogen) 27 mg/dL (8.9-20.6); Bilirubin, Total 0.2 mg/dL (0.2-1.2); Calc. Creatinine Clearance 0 mL/min (70-130); Calcium 8.7 mg/dL (7.8-10.44); Carbon Dioxide 20 mmol/L (22-29); Chloride 104 mmol/L (98-107); Globulin 4.8 g/dL (2.4-3.5); Glucose 188 mg/dL (70-105); Potassium 4.7 mmol/L (3.5-5.1); Protein, Total 7.9 g/dL (6.0-8.3); Sodium 132 mmol/L (136-145)
[2021-05-10 00:19] LABS: Actual Bicarbonate (HCO3v) 21 mEq/L (22-28); Analyzer IN Cardio ER; Base Excess -3.1 mEq/L (-2.0 to +3.0); Calcium, Ionized (venous) 1.11 mmol/L (1.16-1.32); Chloride (VBG) 104 mmol/L (98-106); Potassium (VBG) 4.63 mmol/L (3.70-5.30); Sodium 131.7 mmol/L (133-146)
[2021-05-10] MEDS ORDERED: Cefepime 2 GM VIAL ONE (01:06)
[2021-05-10 02:11] LABS: SARS-CoV-2 NAA Rapid Test Not Detected (NotDetected)
[2021-05-10] MEDS ORDERED: Vancomycin 1 GM/200 ML BAG ONE (02:13)
[2021-05-10 03:54] VITALS: BMI 18.6
[2021-05-10] MEDS ORDERED: Ondansetron ODT 4 MG TAB SL PRN (05:15)
[2021-05-10] MEDS ORDERED: Sodium Chloride 0.9% 1,000 ML IV SCH (05:15)
[2021-05-10] MEDS ORDERED: Acetaminophen 325 MG TAB PO PRN ×2 (05:15→07:43)
[2021-05-10] MEDS ORDERED: Ondansetron PF 4 MG/2 ML Vial IVP PRN (05:15)
[2021-05-10] MEDS ORDERED: Ondansetron ODT 4 MG TAB PO PRN (07:43)
[2021-05-10] MEDS ORDERED: Dextrose 50% Abboject 50 ML SYRINGE SLOW IVP PRN (07:43)
[2021-05-10] MEDS ORDERED: Zolpidem Tartrate 5 MG TAB PO PRN (07:43)
[2021-05-10] MEDS ORDERED: HumaLOG 300 UNITS/3 ML VIAL SC PRN (07:43)
[2021-05-10] MEDS ORDERED: Dextrose 5% in Water 1,000 ML IV PRN (07:43)
[2021-05-10] MEDS: Lantus 1000 UNITS/10 ML VIAL SC SCH (08:12)
[2021-05-10] MEDS: Enoxaparin Sodium 40 MG/0.4 ML SYRINGE SC SCH (08:12)
[2021-05-10] MEDS ORDERED: Cefepime 2 GM in Sodium Chloride 0.9% 100 ML IVPB SCH (09:00)
[2021-05-10 09:39] LABS: Hemoglobin A1c 12.5 % (4.0-6.0)
[2021-05-10] MEDS ORDERED: cefTRIAXone\\ROCEPHIN 2 GM in Sodium Chloride 0.9% 100 ML IVPB SCH (17:00)
[2021-05-10] MEDS ORDERED: Lantus 1000 UNITS/10 ML VIAL SC SCH (21:00)
[2021-05-11 06:04] LABS: #Eosinphils 0.1 thou/uL (0.0-0.7); #Lymphocytes 1.5 thou/uL (1.20-3.40); #Monocytes 0.6 thou/uL (0.11-0.59); %Basophils 0.1 % (0.0-1.0); %Eosinophils 2.1 % (0.0-10.0); %Lymphocytes 20.3 % (21.0-51.0); %Monocytes 8.2 % (0.0-10.0); %Neutrophils 69.3 % (42.0-75.0); Mean Corpuscular HGB CONC 31.2 g/dL (32.0-36.0); Mean Corpuscular Hemoglobin 27.2 pg (27.0-31.0); Mean Corpuscular Volume 87.2 fL (78.0-98.0); Mean Platelet Volume 6.7 fL (7.4-10.4); Platelet Count 345 thou/uL (130-400); RBC Distribution Width 12.9 % (11.5-14.5); Red Blood Cell (RBC) Count 2.94 mill/uL (4.70-6.10); White Blood Cell (WBC) Count 7.2 thou/uL (4.8-10.8)
[2021-05-11 06:24] LABS: Anion Gap 10 mmol/L (10-20); BUN (Urea Nitrogen) 12 mg/dL (8.9-20.6); Calc. Creatinine Clearance 114 mL/min (70-130); Calcium 8.4 mg/dL (7.8-10.44); Carbon Dioxide 23 mmol/L (22-29); Chloride 111 mmol/L (98-107); Glucose 185 mg/dL (70-105); Sodium 140 mmol/L (136-145)
[2021-05-11] MEDS: Lantus 1000 UNITS/10 ML VIAL SC SCH (08:20)
[2021-05-11] MEDS: Enoxaparin Sodium 40 MG/0.4 ML SYRINGE SC SCH (08:20)
[2021-05-11 11:15] VITALS: BP 124/80; TEMP 99.1
== END 2021-05-11 12:17 | disposition home or self-care (01) | DRG 638 ==
LOC: ERS 22:37 → T4-B 05-10 02:21
PROVIDERS: ADMIT Student in an Organized Health Care Education/Training Program; ATTEND Internal Medicine
DX: E10.69 Type 1 diabetes mellitus with other specified complication (principal); M86.8X7 Other osteomyelitis, ankle and foot; Z20.822 Contact with and (suspected) exposure to COVID-19; E10.621 Type 1 diabetes mellitus with foot ulcer; E10.610 Type 1 diabetes mellitus with diabetic neuropathic arthropathy; L97.519 Non-pressure chronic ulcer of other part of right foot with unspecified severity; E10.65 Type 1 diabetes mellitus with hyperglycemia; D64.9 Anemia, unspecified; Z88.7 Allergy status to serum and vaccine; Z79.899 Other long term (current) drug therapy; Z79.4 Long term (current) use of insulin
CPT/HCPCS: 0240U; 36415; 36416; 71045; 80048; 80053; 82010; 82805; 83036; 83605; 85025; 85652; 86140; 87040; 87077; 87149; 93005; 96365; 96367; J0692; J0696; J1650; J1815; J3370; J3490

== ENCOUNTER 2021-11-20 14:38 | Inpatient (IN) | payer SELFPAY ==
[~2021-11-20 14:38] MED LIST changes: +Heparin 1,000 UNITS/ML VIAL ONE; -ISOVUE-370 76%-LOCM 1 ML ONE
[2021-11-20 15:30] LABS: #Lymphocytes 1.1 thou/uL (1.20-3.40); #Monocytes 0.5 thou/uL (0.11-0.59); #Neutrophils 5.8 thou/uL (1.40-6.50); %Basophils 0.3 % (0.0-1.0); %Eosinophils 0.4 % (0.0-10.0); %Lymphocytes 15.2 % (21.0-51.0); %Monocytes 6.7 % (0.0-10.0); %Neutrophils 77.4 % (42.0-75.0); Hemoglobin 11.8 g/dL (14.0-18.0); Mean Corpuscular HGB CONC 34.1 g/dL (32.0-36.0); Mean Corpuscular Hemoglobin 31.8 pg (27.0-31.0); Mean Corpuscular Volume 93.4 fL (78.0-98.0); Platelet Count 217 thou/uL (130-400); RBC Distribution Width 11.4 % (11.5-14.5); Red Blood Cell (RBC) Count 3.71 mill/uL (4.70-6.10); White Blood Cell (WBC) Count 7.5 thou/uL (4.8-10.8)
[2021-11-20 15:48] LABS: ALT (SGPT) 17 U/L (8-55); AST (SGOT) 22 U/L (5-34); Albumin 3.3 g/dL (3.5-5.0); Alkaline Phosphatase 71 U/L (40-110); Anion Gap 6 mmol/L (10-20); BUN (Urea Nitrogen) 16 mg/dL (8.9-20.6); Bilirubin, Total 0.2 mg/dL (0.2-1.2); Calc. Creatinine Clearance 0 mL/min (70-130); Calcium 8.5 mg/dL (7.8-10.44); Carbon Dioxide 28 mmol/L (22-29); Chloride 111 mmol/L (98-107); Globulin 2.9 g/dL (2.4-3.5); Glucose 84 mg/dL (70-105); Protein, Total 6.2 g/dL (6.0-8.3); Sodium 141 mmol/L (136-145)
[2021-11-20] MEDS ORDERED: Ampicillin/Sulbactam 3 GM in Sodium Chloride 0.9% 100 ML IVPB SCH (17:00)
[2021-11-20] MEDS ORDERED: Ketorolac Tromethamine 30 MG/ML VIAL ONE (17:22)
[2021-11-20] MEDS ORDERED: Vancomycin HCl 1 GM in Sodium Chloride 0.9% 250 ML 250 ML IVPB SCH (17:45)
[2021-11-20] MEDS ORDERED: Neomycin-Polymyxin 1 ML AMP ONE (18:36)
[2021-11-20] MEDS ORDERED: Bupivacaine PF 0.5% 30 ML VIAL ONE (18:36)
[2021-11-20] MEDS ORDERED: Bacitracin Zinc Ointment 30 gm TUBE ONE (18:36)
[2021-11-20] MEDS ORDERED: Fentanyl 100 MCG/2 ML VIAL ONE (18:54)
[2021-11-20 19:00] LABS: SARS-CoV-2 NAA Rapid Test DETECTED (NotDetected)
[2021-11-20] MEDS ORDERED: Rocuronium Bromide 10 MG/ML (10ML VIAL) ONE (19:34)
[2021-11-20] MEDS ORDERED: Ondansetron PF 4 MG/2 ML Vial ONE (19:34)
[2021-11-20] MEDS ORDERED: Dexamethasone 20 MG/5 ML VIAL ONE (19:34)
[2021-11-20] MEDS ORDERED: PROPOFOL 200 MG/20 ML VIAL ONE (19:34)
[2021-11-20] MEDS ORDERED: Succinylcholine 200 MG/10 ml SYRINGE FS ONE (19:34)
[2021-11-20] MEDS ORDERED: ePHEDrine 50 MG/ML VIAL ONE (19:34)
[2021-11-20] MEDS ORDERED: Lidocaine 1% PF 5 ML VIAL ONE (19:34)
[2021-11-20] MEDS ORDERED: Glycopyrrolate 0.2 MG/ML 5 ML SYRINGE ONE (19:34)
[2021-11-20] MEDS ORDERED: Milk Of Magnesia 30 ML UDCUP PO PRN (20:26)
[2021-11-20] MEDS ORDERED: Acetaminophen 325 MG TAB PO PRN (20:26)
[2021-11-20] MEDS ORDERED: Bisacodyl 10 MG SUPP PR PRN (20:26)
[2021-11-20] MEDS ORDERED: HYDROcodone/Acetaminophen 5/325 mg Tablet PO PRN (20:26)
[2021-11-20] MEDS ORDERED: Fentanyl 100 MCG/2 ML VIAL SLOW IVP PRN (20:26)
[2021-11-20] MEDS ORDERED: Promethazine HCl 25 MG/ML VIAL IM PRN (20:26)
[2021-11-20] MEDS ORDERED: traMADol HCl 50 MG TAB PO PRN (20:26)
[2021-11-20] MEDS ORDERED: Ondansetron PF 4 MG/2 ML Vial SLOW IVP PRN (20:26)
[2021-11-20] MEDS ORDERED: Communication Order-Pharmacy FS SCH (20:30)
[2021-11-20] MEDS ORDERED: TETANUS AND DIPHTHERIA TOX/PF 0.5 ML DISP.SYRIN IM SCH (20:30)
[2021-11-20] MEDS ORDERED: Colchicine 0.6 MG TAB PO SCH (21:30)
[2021-11-20] MEDS ORDERED: Sodium Chloride 0.9% 1,000 ML IV SCH (21:30)
[2021-11-20 21:38] VITALS: BMI 18.4
[2021-11-20] MEDS ORDERED: Dextrose 5% in Water 1,000 ML IV PRN (21:45)
[2021-11-20] MEDS: Aspirin 81 mg Enteric Coated Tablet PO SCH (22:34)
[2021-11-20] MEDS: Sodium Chloride 0.9% 1,000 ML IV SCH (22:42)
[2021-11-21] MEDS: Sodium Chloride 0.9% 1,000 ML IV SCH ×3 (05:49→15:50)
[2021-11-21] MEDS ORDERED: Vancomycin HCl 1 GM in Sodium Chloride 0.9% 250 ML 250 ML IVPB SCH (06:00)
[2021-11-21 06:04] LABS: #Lymphocytes 0.9 thou/uL (1.20-3.40); #Monocytes 0.2 thou/uL (0.11-0.59); #Neutrophils 4.1 thou/uL (1.40-6.50); %Basophils 0.2 % (0.0-1.0); %Eosinophils 0.1 % (0.0-10.0); %Lymphocytes 17.8 % (21.0-51.0); %Monocytes 3.5 % (0.0-10.0); %Neutrophils 78.4 % (42.0-75.0); Hemoglobin 11.9 g/dL (14.0-18.0); Mean Corpuscular HGB CONC 33.4 g/dL (32.0-36.0); Mean Corpuscular Hemoglobin 31.6 pg (27.0-31.0); Mean Corpuscular Volume 94.6 fL (78.0-98.0); Mean Platelet Volume 6.8 fL (7.4-10.4); Platelet Count 201 thou/uL (130-400); RBC Distribution Width 11.5 % (11.5-14.5); Red Blood Cell (RBC) Count 3.77 mill/uL (4.70-6.10); White Blood Cell (WBC) Count 5.2 thou/uL (4.8-10.8)
[2021-11-21 06:23] LABS: ALT (SGPT) 22 U/L (8-55); AST (SGOT) 28 U/L (5-34); Alkaline Phosphatase 74 U/L (40-110); Anion Gap 9 mmol/L (10-20); BUN (Urea Nitrogen) 13 mg/dL (8.9-20.6); Bilirubin, Total 0.2 mg/dL (0.2-1.2); Calc. Creatinine Clearance 131 mL/min (70-130); Calcium 8.1 mg/dL (7.8-10.44); Carbon Dioxide 23 mmol/L (22-29); Chloride 110 mmol/L (98-107); Globulin 3.1 g/dL (2.4-3.5); Glucose 157 mg/dL (70-105); Potassium 4.2 mmol/L (3.5-5.1); Protein, Total 6.1 g/dL (6.0-8.3); Sodium 138 mmol/L (136-145)
[2021-11-21] MEDS: Aspirin 81 mg Enteric Coated Tablet PO SCH ×2 (08:25→20:43)
[2021-11-21] MEDS: Colchicine 0.6 MG TAB PO SCH ×2 (08:26→20:43)
[2021-11-21] MEDS: Insulin Regular 300 UNITS/3 ML VIAL SC PRN (16:45)
[2021-11-21] MEDS: Morphine 4 MG/ML VIAL SLOW IVP PRN (16:50)
[2021-11-21] MEDS: Dextrose 50% Abboject 50 ML SYRINGE IVP PRN (20:44)
[2021-11-21 23:38] LABS: 24 Hr Sodium 250.3 mmol/24h (40-220)
[2021-11-21 23:42] LABS: 24 Hr Creatinine 1664.06 mg/24 hr (950-2490); Creatinine, Urine 68.48 mg/dL (63-166)
[2021-11-22] MEDS: Sodium Chloride 0.9% 1,000 ML IV SCH ×2 (03:25→17:39)
[2021-11-22] MEDS: Insulin Regular 300 UNITS/3 ML VIAL SC PRN ×2 (05:38→20:37)
[2021-11-22 07:11] LABS: Uric Acid-Urine 43.8 mg/dL
[2021-11-22 07:17] LABS: Hemoglobin 11.4 g/dL (14.0-18.0); Mean Corpuscular HGB CONC 33.7 g/dL (32.0-36.0); Mean Corpuscular Volume 94.8 fL (78.0-98.0); Mean Platelet Volume 7.3 fL (7.4-10.4); Platelet Count 179 thou/uL (130-400); RBC Distribution Width 11.6 % (11.5-14.5); Red Blood Cell (RBC) Count 3.56 mill/uL (4.70-6.10); White Blood Cell (WBC) Count 4.2 thou/uL (4.8-10.8)
[2021-11-22 07:22] LABS: Anion Gap 5 mmol/L (10-20); BUN (Urea Nitrogen) 9 mg/dL (8.9-20.6); Calc. Creatinine Clearance 131 mL/min (70-130); Calcium 8.1 mg/dL (7.8-10.44); Carbon Dioxide 30 mmol/L (22-29); Chloride 109 mmol/L (98-107); Glucose 229 mg/dL (70-105); Sodium 140 mmol/L (136-145)
[2021-11-22] MEDS: Lantus 1000 UNITS/10 ML VIAL SC SCH (09:21)
[2021-11-22] MEDS: Aspirin 81 mg Enteric Coated Tablet PO SCH ×2 (09:21→20:37)
[2021-11-22] MEDS: Colchicine 0.6 MG TAB PO SCH ×2 (09:22→20:37)
[2021-11-22 09:27] LABS: Band 11 % (5-11); Lymphocytes 54 % (21-51); MDiff Complete? YES; Monocytes 1 % (0-10); Neutrophil 34 % (42-75); Platelet Morphology Comment Appears Adequate; RBC Morphology Normal
[2021-11-22] MEDS ORDERED: LACTINEX 1 TAB PO SCH (20:30)
[2021-11-22] MEDS: Morphine 4 MG/ML VIAL SLOW IVP PRN (22:03)
[2021-11-23] MEDS: Sodium Chloride 0.9% 1,000 ML IV SCH ×3 (00:07→17:48)
[2021-11-23 05:04] LABS: Hemoglobin A1c 8.1 % (4.0-6.0)
[2021-11-23] MEDS: Lantus 1000 UNITS/10 ML VIAL SC SCH (08:44)
[2021-11-23] MEDS: Aspirin 81 mg Enteric Coated Tablet PO SCH ×2 (08:44→21:18)
[2021-11-23] MEDS: LACTINEX 1 TAB PO SCH ×3 (08:44→21:18)
[2021-11-23] MEDS: Colchicine 0.6 MG TAB PO SCH (08:44)
[2021-11-23] MEDS ORDERED: Vancomycin HCl 1 GM in Sodium Chloride 0.9% 250 ML 250 ML IVPB SCH (09:00)
[2021-11-23] MEDS: VANCOMYCIN 1.25 GM/250 ML BAG 1.25 GM in Premix Bag 1 BAG IVPB SCH ×2 (14:20→21:19)
[2021-11-23] MEDS: Insulin Regular 300 UNITS/3 ML VIAL SC PRN (21:18)
[2021-11-24] MEDS: Sodium Chloride 0.9% 1,000 ML IV SCH ×2 (05:38→14:20)
[2021-11-24] MEDS: Insulin Regular 300 UNITS/3 ML VIAL SC PRN (05:39)
[2021-11-24] MEDS: VANCOMYCIN 1.25 GM/250 ML BAG 1.25 GM in Premix Bag 1 BAG IVPB SCH ×2 (05:39→14:20)
[2021-11-24] MEDS: Aspirin 81 mg Enteric Coated Tablet PO SCH ×3 (08:59→21:14)
[2021-11-24] MEDS: Allopurinol 100 MG TAB PO SCH ×2 (08:59→09:08)
[2021-11-24] MEDS: LACTINEX 1 TAB PO SCH ×4 (08:59→21:14)
[2021-11-24] MEDS: Lantus 1000 UNITS/10 ML VIAL SC SCH ×2 (09:00→09:08)
[2021-11-24] MEDS: Dextrose 50% Abboject 50 ML SYRINGE IVP PRN (11:05)
[2021-11-24 14:09] LABS: Vancomycin, Trough 45.4 ug/mL
[2021-11-24] MEDS: ceFAZolin Sodium/D5W 2 GM in Premix Bag 1 BAG IVPB SCH (21:17)
[2021-11-25] MEDS: Sodium Chloride 0.9% 1,000 ML IV SCH ×2 (01:38→10:58)
[2021-11-25] MEDS: ceFAZolin Sodium/D5W 2 GM in Premix Bag 1 BAG IVPB SCH ×3 (05:52→22:36)
[2021-11-25] MEDS ORDERED: Midazolam HCl 2 mg/2 ml Vial ONE (07:05)
[2021-11-25] MEDS ORDERED: HYDROmorphone 2 MG/ML VIAL ONE (07:05)
[2021-11-25] MEDS ORDERED: Sodium Chloride 0.9% 10 ML ONE (07:05)
[2021-11-25 07:42] LABS: #Monocytes 0.3 thou/uL (0.11-0.59); #Neutrophils 3.2 thou/uL (1.40-6.50); %Basophils 0.2 % (0.0-1.0); %Eosinophils 0.4 % (0.0-10.0); %Lymphocytes 21.8 % (21.0-51.0); %Monocytes 7.2 % (0.0-10.0); %Neutrophils 70.4 % (42.0-75.0); Hemoglobin 12.1 g/dL (14.0-18.0); Mean Corpuscular HGB CONC 33.8 g/dL (32.0-36.0); Mean Corpuscular Hemoglobin 31.6 pg (27.0-31.0); Mean Corpuscular Volume 93.5 fL (78.0-98.0); Mean Platelet Volume 7.1 fL (7.4-10.4); Platelet Count 183 thou/uL (130-400); RBC Distribution Width 11.3 % (11.5-14.5); Red Blood Cell (RBC) Count 3.82 mill/uL (4.70-6.10); White Blood Cell (WBC) Count 4.6 thou/uL (4.8-10.8)
[2021-11-25] MEDS ORDERED: HYDROmorphone 2 MG/ML VIAL SLOW IVP PRN (07:55)
[2021-11-25] MEDS ORDERED: Promethazine HCl 25 MG/ML VIAL IVPB PRN (07:55)
[2021-11-25] MEDS ORDERED: Ondansetron HCl/PF 4 MG/2 ML Vial IVP PRN (07:55)
[2021-11-25] MEDS ORDERED: Meperidine HCl/PF 25 MG/ML VIAL SLOW IVP PRN (07:55)
[2021-11-25] MEDS ORDERED: Promethazine HCl 25 MG/ML VIAL IM PRN (07:55)
[2021-11-25 07:59] LABS: Anion Gap 11 mmol/L (10-20); BUN (Urea Nitrogen) 17 mg/dL (8.9-20.6); Calc. Creatinine Clearance 94 mL/min (70-130); Calcium 8.6 mg/dL (7.8-10.44); Carbon Dioxide 18 mmol/L (22-29); Chloride 114 mmol/L (98-107); Glucose 267 mg/dL (70-105); Magnesium 1.9 mg/dL (1.6-2.6); Phosphorus 2.7 mg/dL (2.3-4.7); Potassium 4.3 mmol/L (3.5-5.1); Sodium 139 mmol/L (136-145)
[2021-11-25] MEDS ORDERED: Lidocaine 1% PF 5 ML VIAL ONE (08:32)
[2021-11-25] MEDS ORDERED: Phenylephrine 10 MG/ML VIAL ONE (08:32)
[2021-11-25] MEDS ORDERED: Glycopyrrolate 0.2 MG/ML 5 ML SYRINGE ONE (08:32)
[2021-11-25] MEDS ORDERED: PROPOFOL 200 MG/20 ML VIAL ONE (08:32)
[2021-11-25] MEDS ORDERED: Ondansetron PF 4 MG/2 ML Vial ONE (08:32)
[2021-11-25] MEDS ORDERED: Dexamethasone 20 MG/5 ML VIAL ONE (08:32)
[2021-11-25] MEDS ORDERED: ePHEDrine 50 MG/ML VIAL ONE (08:32)
[2021-11-25] MEDS ORDERED: Bupivacaine PF 0.5% 30 ML VIAL ONE (08:55)
[2021-11-25] MEDS ORDERED: Bacitracin Zinc Ointment 30 gm TUBE ONE (08:56)
[2021-11-25] MEDS: Lantus 1000 UNITS/10 ML VIAL SC SCH (09:00)
[2021-11-25] MEDS: LACTINEX 1 TAB PO SCH ×3 (10:58→22:30)
[2021-11-25] MEDS: Aspirin 81 mg Enteric Coated Tablet PO SCH ×2 (10:58→22:30)
[2021-11-25] MEDS: Allopurinol 100 MG TAB PO SCH (10:58)
[2021-11-25] MEDS: Insulin Regular 300 UNITS/3 ML VIAL SC PRN ×2 (13:11→17:26)
[2021-11-25 13:42] LABS: Vancomycin, Random 9.7 ug/mL (See Comment)
[2021-11-25] MEDS ORDERED: VANCOMYCIN 1.25 GM/250 ML BAG 1.25 GM in Premix Bag 1 BAG IVPB SCH (14:00)
[2021-11-26] MEDS: Sodium Chloride 0.9% 1,000 ML IV SCH ×2 (02:44→08:58)
[2021-11-26] MEDS: ceFAZolin Sodium/D5W 2 GM in Premix Bag 1 BAG IVPB SCH ×3 (05:47→21:30)
[2021-11-26 06:43] LABS: Anion Gap 10 mmol/L (10-20); BUN (Urea Nitrogen) 13 mg/dL (8.9-20.6); Calc. Creatinine Clearance 126 mL/min (70-130); Calcium 8.5 mg/dL (7.8-10.44); Carbon Dioxide 22 mmol/L (22-29); Chloride 112 mmol/L (98-107); Glucose 234 mg/dL (70-105); Magnesium 1.8 mg/dL (1.6-2.6); Phosphorus 2.2 mg/dL (2.3-4.7); Potassium 3.9 mmol/L (3.5-5.1); Sodium 140 mmol/L (136-145)
[2021-11-26 06:57] LABS: Hemoglobin 11.3 g/dL (14.0-18.0); Mean Corpuscular HGB CONC 34.7 g/dL (32.0-36.0); Mean Corpuscular Hemoglobin 32.3 pg (27.0-31.0); Mean Corpuscular Volume 93.2 fL (78.0-98.0); Mean Platelet Volume 7.1 fL (7.4-10.4); Platelet Count 185 thou/uL (130-400); RBC Distribution Width 11.1 % (11.5-14.5); Red Blood Cell (RBC) Count 3.51 mill/uL (4.70-6.10); White Blood Cell (WBC) Count 3.9 thou/uL (4.8-10.8)
[2021-11-26 07:15] LABS: Band 3 % (5-11); Eosinophils 1 % (0-10); Lymphocytes 51 % (21-51); MDiff Complete? YES; Monocytes 7 % (0-10); Neutrophil 38 % (42-75); Platelet Morphology Comment Appears Adequate; RBC Morphology Normal
[2021-11-26] MEDS: Aspirin 81 mg Enteric Coated Tablet PO SCH ×2 (08:58→20:11)
[2021-11-26] MEDS: LACTINEX 1 TAB PO SCH ×3 (08:59→20:11)
[2021-11-26] MEDS: Allopurinol 100 MG TAB PO SCH (08:59)
[2021-11-26] MEDS ORDERED: Lantus 1000 UNITS/10 ML VIAL SC SCH (09:00)
[2021-11-26] MEDS: Insulin Regular 300 UNITS/3 ML VIAL SC PRN (12:54)
[2021-11-26] MEDS: VANCOMYCIN 1.25 GM/250 ML BAG 1.25 GM in Premix Bag 1 BAG IVPB SCH (20:12)
[2021-11-26] MEDS ORDERED: Vancomycin 1.25 GM in Premix Bag 1 BAG IVPB SCH (21:00)
[2021-11-27] MEDS: Insulin Regular 300 UNITS/3 ML VIAL SC PRN (05:30)
[2021-11-27] MEDS: ceFAZolin Sodium/D5W 2 GM in Premix Bag 1 BAG IVPB SCH (05:31)
[2021-11-27 06:11] LABS: Eosinophils 2 % (0-10); Hemoglobin 11.3 g/dL (14.0-18.0); Hypochromia SLIGHT = 6-15 cells (100X) (0-5/hpf); Lymphocytes 35 % (21-51); MDiff Complete? YES; Mean Corpuscular HGB CONC 35.1 g/dL (32.0-36.0); Mean Corpuscular Hemoglobin 32.3 pg (27.0-31.0); Mean Corpuscular Volume 92.2 fL (78.0-98.0); Mean Platelet Volume 7.3 fL (7.4-10.4); Monocytes 11 % (0-10); Neutrophil 52 % (42-75); Platelet Count 193 thou/uL (130-400); Platelet Morphology Comment Appears Adequate; RBC Distribution Width 11.2 % (11.5-14.5); Red Blood Cell (RBC) Count 3.51 mill/uL (4.70-6.10); White Blood Cell (WBC) Count 4.9 thou/uL (4.8-10.8)
[2021-11-27 06:22] LABS: Anion Gap 13 mmol/L (10-20); BUN (Urea Nitrogen) 16 mg/dL (8.9-20.6); Calc. Creatinine Clearance 105 mL/min (70-130); Calcium 8.9 mg/dL (7.8-10.44); Carbon Dioxide 18 mmol/L (22-29); Chloride 112 mmol/L (98-107); Glucose 363 mg/dL (70-105); Magnesium 1.8 mg/dL (1.6-2.6); Phosphorus 2.7 mg/dL (2.3-4.7); Potassium 4.2 mmol/L (3.5-5.1); Sodium 139 mmol/L (136-145)
[2021-11-27] MEDS: VANCOMYCIN 1.25 GM/250 ML BAG 1.25 GM in Premix Bag 1 BAG IVPB SCH (08:36)
[2021-11-27] MEDS: Lantus 1000 UNITS/10 ML VIAL SC SCH (08:37)
[2021-11-27] MEDS: LACTINEX 1 TAB PO SCH ×3 (08:37→20:32)
[2021-11-27] MEDS: Aspirin 81 mg Enteric Coated Tablet PO SCH ×2 (08:37→20:32)
[2021-11-27] MEDS: Allopurinol 100 MG TAB PO SCH (08:37)
[2021-11-27] MEDS: cefTRIAXone\\ROCEPHIN 2 GM in Sodium Chloride 0.9% 100 ML IVPB SCH (12:39)
[2021-11-27] MEDS ORDERED: Lantus 1000 UNITS/10 ML VIAL SC SCH ×2 (21:00)
[2021-11-28] MEDS: Insulin Regular 300 UNITS/3 ML VIAL SC PRN (05:33)
[2021-11-28 07:29] LABS: SARS-CoV-2 NAA Rapid Test DETECTED (NotDetected)
[2021-11-28 08:11] LABS: #Eosinphils 0.1 thou/uL (0.0-0.7); #Monocytes 0.3 thou/uL (0.11-0.59); #Neutrophils 1.9 thou/uL (1.40-6.50); %Eosinophils 2.1 % (0.0-10.0); %Lymphocytes 46.8 % (21.0-51.0); %Monocytes 7.6 % (0.0-10.0); %Neutrophils 43.4 % (42.0-75.0); Hemoglobin 12.2 g/dL (14.0-18.0); Mean Corpuscular HGB CONC 34.4 g/dL (32.0-36.0); Mean Corpuscular Hemoglobin 31.8 pg (27.0-31.0); Mean Corpuscular Volume 92.3 fL (78.0-98.0); Platelet Count 215 thou/uL (130-400); RBC Distribution Width 11.1 % (11.5-14.5); Red Blood Cell (RBC) Count 3.83 mill/uL (4.70-6.10); White Blood Cell (WBC) Count 4.4 thou/uL (4.8-10.8)
[2021-11-28 08:12] VITALS: BP 113/66; TEMP 97.3
[2021-11-28 08:33] LABS: Anion Gap 13 mmol/L (10-20); BUN (Urea Nitrogen) 17 mg/dL (8.9-20.6); Calc. Creatinine Clearance 137 mL/min (70-130); Calcium 9.1 mg/dL (7.8-10.44); Carbon Dioxide 23 mmol/L (22-29); Chloride 114 mmol/L (98-107); Glucose 79 mg/dL (70-105); Magnesium 1.9 mg/dL (1.6-2.6); Phosphorus 3.2 mg/dL (2.3-4.7); Potassium 3.5 mmol/L (3.5-5.1); Sodium 146 mmol/L (136-145)
[2021-11-28] MEDS: Allopurinol 100 MG TAB PO SCH (09:40)
[2021-11-28] MEDS: LACTINEX 1 TAB PO SCH ×2 (09:40→13:27)
[2021-11-28] MEDS: Lantus 1000 UNITS/10 ML VIAL SC SCH (09:40)
[2021-11-28] MEDS: Aspirin 81 mg Enteric Coated Tablet PO SCH (09:40)
[2021-11-28] MEDS: cefTRIAXone\\ROCEPHIN 2 GM in Sodium Chloride 0.9% 100 ML IVPB SCH (13:27)
[2021-11-28] MEDS ORDERED: Lantus 1000 UNITS/10 ML VIAL SC SCH (21:00)
== END 2021-11-28 16:14 | disposition home or self-care (01) | DRG 513 ==
LOC: ERS 14:38 → SDC/OP 19:21 → T4-A 20:26
PROVIDERS: ADMIT Orthopaedic Surgery Hand Surgery; ATTEND Family Medicine
PROC: 0RBW0ZZ Excision of Right Finger Phalangeal Joint, Open Approach (ICD-10-PCS; 2021-11-20)
PROC: 0JDJ0ZZ Extraction of Right Hand Subcutaneous Tissue and Fascia, Open Approach (ICD-10-PCS; 2021-11-20)
PROC: 8E0ZXY6 Isolation (ICD-10-PCS; 2021-11-20)
PROC: 02HV33Z Insertion of Infusion Device into Superior Vena Cava, Percutaneous Approach (ICD-10-PCS; 2021-11-23)
PROC: B5181ZA Fluoroscopy of Superior Vena Cava using Low Osmolar Contrast, Guidance (ICD-10-PCS; 2021-11-23)
PROC: B548ZZA Ultrasonography of Superior Vena Cava, Guidance (ICD-10-PCS; 2021-11-23)
PROC: 0RBW0ZZ Excision of Right Finger Phalangeal Joint, Open Approach (ICD-10-PCS; principal; 2021-11-25)
DX: M00.041 Staphylococcal arthritis, right hand (principal); U07.1 COVID-19; L02.511 Cutaneous abscess of right hand; M10.9 Gout, unspecified; B95.61 Methicillin susceptible Staphylococcus aureus infection as the cause of diseases classified elsewhere; E10.610 Type 1 diabetes mellitus with diabetic neuropathic arthropathy; M65.9 Synovitis and tenosynovitis, unspecified; R03.0 Elevated blood-pressure reading, without diagnosis of hypertension; R19.7 Diarrhea, unspecified; Z89.021 Acquired absence of right finger(s); Z88.7 Allergy status to serum and vaccine; Z89.611 Acquired absence of right leg above knee
CPT/HCPCS: 36415; 36416; 36569; 80048; 80053; 80202; 82340; 82570; 83036; 83605; 83735; 84100; 84300; 84550; 84560; 85025; 85652; 86140; 87040; 87070; 87077; 87186; 87205; 88304; 88312; 89060; 96365; 96367; 96375; C1751; J0295; J0696; J1100; J1170; J1644; J1815; J1885; J2250; J2270; J2370; J2405; J2704; J3010; J3370; J3490; J7050; S0020; U0002

== ENCOUNTER 2021-12-25 17:57 | Inpatient (IN) | payer SELFPAY ==
[2021-12-25 18:30] LABS: #Lymphocytes 1.2 thou/uL (1.20-3.40); #Monocytes 0.3 thou/uL (0.11-0.59); #Neutrophils 4.7 thou/uL (1.40-6.50); %Basophils 0.5 % (0.0-1.0); %Eosinophils 0.2 % (0.0-10.0); %Lymphocytes 18.6 % (21.0-51.0); %Monocytes 4.5 % (0.0-10.0); %Neutrophils 76.2 % (42.0-75.0); Hemoglobin 12.2 g/dL (14.0-18.0); Mean Corpuscular HGB CONC 33.4 g/dL (32.0-36.0); Mean Platelet Volume 7.6 fL (7.4-10.4); Platelet Count 240 thou/uL (130-400); RBC Distribution Width 12.7 % (11.5-14.5); Red Blood Cell (RBC) Count 3.94 mill/uL (4.70-6.10); White Blood Cell (WBC) Count 6.2 thou/uL (4.8-10.8)
[2021-12-25 18:51] LABS: ALT (SGPT) 11 U/L (8-55); AST (SGOT) 12 U/L (5-34); Albumin 4.1 g/dL (3.5-5.0); Alkaline Phosphatase 89 U/L (40-110); Anion Gap 16 mmol/L (10-20); BUN (Urea Nitrogen) 26 mg/dL (8.9-20.6); Bilirubin, Total 0.8 mg/dL (0.2-1.2); Calc. Creatinine Clearance 0 mL/min (70-130); Calcium 10.5 mg/dL (7.8-10.44); Carbon Dioxide 26 mmol/L (22-29); Chloride 103 mmol/L (98-107); Glucose 415 mg/dL (70-105); Lipase 13 U/L (8-78); Potassium 4.1 mmol/L (3.5-5.1); Protein, Total 8.1 g/dL (6.0-8.3); Sodium 141 mmol/L (136-145)
[2021-12-25 19:04] LABS: Magnesium 2.1 mg/dL (1.6-2.6)
[2021-12-25 19:16] LABS: Phosphorus 1.3 mg/dL (2.3-4.7)
[2021-12-25 20:19] LABS: Bacteria/HPF None Seen HPF (None Seen); Bilirubin Negative (Negative); Blood, Urine 1+ (Negative); Clarity Clear (Clear); Glucose, Urine (Dipstick) Greater than 1000 mg/dL (Negative); Ketone, Urine 20 mg/dL (Negative); Leukocyte Negative Leu/uL (Negative); Nitrite Negative (Negative); Protein, Urine (Dipstick) 200 mg/dL (Neg-Trace); Specific Gravity, Urine 1.025 (1.002-1.036); Squamous Epithelial 0-3 HPF (0-3); Urobilinogen Normal mg/dL (Less than 2); WBC/HPF 0-3 HPF (0-3)
[2021-12-25] MEDS ORDERED: Metoclopramide HCl 10 MG/2 ML VIAL ONE (22:03)
[2021-12-25] MEDS ORDERED: Ketorolac Tromethamine 30 MG/ML VIAL ONE (22:03)
[2021-12-25] MEDS ORDERED: Ondansetron PF 4 MG/2 ML Vial ONE (22:03)
[2021-12-25 22:32] LABS: Actual Bicarbonate (HCO3v) 23 mEq/L (22-28); Analyzer IN Cardio ER; Base Excess 1.8 mEq/L (-2.0 to +3.0); Calcium, Ionized (venous) 1.02 mmol/L (1.16-1.32); Chloride (VBG) 103 mmol/L (98-106); Hemoglobin (Hb) 12.8 g/dL (13.2-17.3); Potassium (VBG) 4.98 mmol/L (3.70-5.30); Sodium 138.4 mmol/L (133-146); pH (venous) 7.57 (7.32-7.43)
[2021-12-26] MEDS ORDERED: Insulin Regular 300 UNITS/3 ML VIAL ONE (00:54)
[2021-12-26] MEDS ORDERED: Morphine 4 MG/ML VIAL ONE ×2 (02:24→06:27)
[2021-12-26] MEDS: Sodium Chloride 0.9% 1,000 ML IV SCH ×2 (05:00→14:36)
[2021-12-26] MEDS ORDERED: Morphine 4 MG/ML VIAL SLOW IVP SCH (06:30)
[2021-12-26] MEDS ORDERED: Ondansetron ODT 4 MG TAB SL PRN (07:00)
[2021-12-26] MEDS ORDERED: Ondansetron PF 4 MG/2 ML Vial IVP PRN (07:00)
[2021-12-26 07:42] LABS: SARS-CoV-2 NAA Rapid Test Not Detected (NotDetected)
[2021-12-26] MEDS ORDERED: Piperacillin/Tazobactam 3.375 GM in Sodium Chloride 0.9% 100 ML IVPB SCH (08:00)
[2021-12-26] MEDS ORDERED: Piperacillin/Tazobactam 3.375 GM VIAL ONE (08:23)
[2021-12-26] MEDS ORDERED: Lantus 1000 UNITS/10 ML VIAL SC SCH ×3 (09:45→11:15)
[2021-12-26] MEDS ORDERED: Ondansetron ODT 4 MG TAB ONE (09:59)
[2021-12-26] MEDS ORDERED: Acetaminophen 325 MG TAB PO PRN (10:23)
[2021-12-26] MEDS ORDERED: Acetaminophen 650 MG Suppository PR PRN (10:23)
[2021-12-26] MEDS ORDERED: Dextrose 50% Abboject 50 ML SYRINGE SLOW IVP PRN (10:37)
[2021-12-26] MEDS ORDERED: Dextrose 5% in Water 1,000 ML IV PRN (10:37)
[2021-12-26] MEDS ORDERED: Insulin Regular 300 UNITS/3 ML VIAL SC PRN ×2 (10:37)
[2021-12-26 13:52] VITALS: BMI 18.1
[2021-12-26] MEDS: Morphine 4 MG/ML VIAL SLOW IVP PRN (14:38)
[2021-12-26] MEDS: Ondansetron PF 4 MG/2 ML Vial IVP PRN (20:28)
[2021-12-27] MEDS: Ondansetron PF 4 MG/2 ML Vial IVP PRN ×2 (04:37→10:14)
[2021-12-27] MEDS ORDERED: Lantus 1000 UNITS/10 ML VIAL SC SCH (09:00)
[2021-12-27] MEDS: cefTRIAXone\\ROCEPHIN 2 GM in Sodium Chloride 0.9% 100 ML IVPB SCH (10:13)
[2021-12-27 11:33] LABS: #Lymphocytes 1.3 thou/uL (1.20-3.40); #Monocytes 0.2 thou/uL (0.11-0.59); #Neutrophils 3.6 thou/uL (1.40-6.50); %Basophils 0.3 % (0.0-1.0); %Eosinophils 0.5 % (0.0-10.0); %Lymphocytes 24.5 % (21.0-51.0); %Monocytes 4.7 % (0.0-10.0); Mean Corpuscular HGB CONC 32.2 g/dL (32.0-36.0); Mean Corpuscular Hemoglobin 30.8 pg (27.0-31.0); Mean Corpuscular Volume 95.5 fL (78.0-98.0); Mean Platelet Volume 7.6 fL (7.4-10.4); Platelet Count 193 thou/uL (130-400); RBC Distribution Width 12.3 % (11.5-14.5); Red Blood Cell (RBC) Count 3.57 mill/uL (4.70-6.10); White Blood Cell (WBC) Count 5.1 thou/uL (4.8-10.8)
[2021-12-27 11:57] LABS: Anion Gap 13 mmol/L (10-20); BUN (Urea Nitrogen) 9 mg/dL (8.9-20.6); Calc. Creatinine Clearance 120 mL/min (70-130); Calcium 8.7 mg/dL (7.8-10.44); Carbon Dioxide 26 mmol/L (22-29); Chloride 104 mmol/L (98-107); Glucose 57 mg/dL (70-105); Sodium 140 mmol/L (136-145)
[2021-12-27] MEDS: Morphine 4 MG/ML VIAL SLOW IVP PRN ×2 (14:44→18:44)
[2021-12-27] MEDS: metroNIDAZOLE 500 MG in Premix Bag 1 BAG IVPB SCH ×2 (14:46→20:46)
[2021-12-28] MEDS: Morphine 4 MG/ML VIAL SLOW IVP PRN ×2 (00:45→06:08)
[2021-12-28] MEDS: metroNIDAZOLE 500 MG in Premix Bag 1 BAG IVPB SCH ×2 (06:10→13:47)
[2021-12-28 06:27] LABS: #Lymphocytes 1.5 thou/uL (1.20-3.40); #Monocytes 0.4 thou/uL (0.11-0.59); #Neutrophils 3.4 thou/uL (1.40-6.50); %Basophils 0.3 % (0.0-1.0); %Eosinophils 0.4 % (0.0-10.0); %Lymphocytes 28.7 % (21.0-51.0); %Monocytes 6.9 % (0.0-10.0); %Neutrophils 63.7 % (42.0-75.0); Hemoglobin 12.7 g/dL (14.0-18.0); Mean Corpuscular HGB CONC 32.9 g/dL (32.0-36.0); Mean Corpuscular Volume 94.4 fL (78.0-98.0); Mean Platelet Volume 7.7 fL (7.4-10.4); Platelet Count 204 thou/uL (130-400); RBC Distribution Width 12.2 % (11.5-14.5); White Blood Cell (WBC) Count 5.3 thou/uL (4.8-10.8)
[2021-12-28 06:48] LABS: Anion Gap 13 mmol/L (10-20); BUN (Urea Nitrogen) 8 mg/dL (8.9-20.6); Calc. Creatinine Clearance 120 mL/min (70-130); Calcium 8.9 mg/dL (7.8-10.44); Carbon Dioxide 29 mmol/L (22-29); Chloride 98 mmol/L (98-107); Glucose 125 mg/dL (70-105); Sodium 137 mmol/L (136-145)
[2021-12-28 06:54] LABS: Potassium 2.7 mmol/L (3.5-5.1)
[2021-12-28] MEDS: cefTRIAXone\\ROCEPHIN 2 GM in Sodium Chloride 0.9% 100 ML IVPB SCH (08:24)
[2021-12-28] MEDS ORDERED: Lantus 1000 UNITS/10 ML VIAL SC SCH (09:00)
[2021-12-28] MEDS ORDERED: Potassium Chloride 20 MEQ TAB PO SCH (09:15)
[2021-12-28] MEDS: Potassium Chloride 20 MEQ TAB PO SCH ×2 (13:47→17:00)
[2021-12-28 17:21] VITALS: BP 153/70; TEMP 98.5
== END 2021-12-28 18:44 | disposition home or self-care (01) | DRG 392 ==
LOC: ERS 17:57 → ERHOLD 12-26 06:29 → T4-B 12-26 13:39 → OBSVTOIN 12-27 16:24
PROVIDERS: ADMIT Internal Medicine; ATTEND Internal Medicine
DX: K52.9 Noninfective gastroenteritis and colitis, unspecified (principal); Z20.822 Contact with and (suspected) exposure to COVID-19; M10.9 Gout, unspecified; E10.65 Type 1 diabetes mellitus with hyperglycemia; E10.649 Type 1 diabetes mellitus with hypoglycemia without coma; Z88.7 Allergy status to serum and vaccine; Z79.4 Long term (current) use of insulin; Z79.899 Other long term (current) drug therapy
CPT/HCPCS: 36415; 36416; 74177; 80048; 80053; 81003; 81015; 82010; 82805; 83690; 83735; 84100; 85025; 87040; 87045; 87046; 87324; 87427; 87449; 94760; 96365; 96375; 96376; G0378; J0696; J0744; J1815; J1885; J2270; J2405; J2543; J2765; J3490; J7050; J7070; Q0162; U0002

== ENCOUNTER 2022-05-30 11:21 | Inpatient (IN) | payer SELFPAY ==
[2022-05-30 12:05] LABS: #Lymphocytes 1.4 thou/uL (1.20-3.40); #Monocytes 0.1 thou/uL (0.11-0.59); #Neutrophils 6.3 thou/uL (1.40-6.50); %Basophils 0.2 % (0.0-1.0); %Eosinophils 0.2 % (0.0-10.0); %Lymphocytes 17.5 % (21.0-51.0); %Monocytes 1.6 % (0.0-10.0); %Neutrophils 80.5 % (42.0-75.0); Hemoglobin 12.3 g/dL (14.0-18.0); Mean Corpuscular HGB CONC 33.8 g/dL (32.0-36.0); Mean Corpuscular Volume 91.6 fL (78.0-98.0); Mean Platelet Volume 7.8 fL (7.4-10.4); Platelet Count 248 thou/uL (130-400); RBC Distribution Width 11.8 % (11.5-14.5); Red Blood Cell (RBC) Count 3.97 mill/uL (4.70-6.10); White Blood Cell (WBC) Count 7.8 thou/uL (4.8-10.8)
[2022-05-30 12:17] LABS: Bacteria/HPF None Seen HPF (None Seen); Bilirubin Negative (Negative); Blood, Urine 1+ (Negative); Clarity Clear (Clear); Glucose, Urine (Dipstick) Greater than 1000 mg/dL (Negative); Ketone, Urine 20 mg/dL (Negative); Leukocyte Negative Leu/uL (Negative); Nitrite Negative (Negative); Protein, Urine (Dipstick) 50 mg/dL (Neg-Trace); RBC/HPF 0-3 HPF (0-3); Specific Gravity, Urine 1.026 (1.002-1.036); Squamous Epithelial None Seen HPF (0-3); Urobilinogen Normal mg/dL (Less than 2); WBC/HPF None Seen HPF (0-3)
[2022-05-30 12:30] LABS: ALT (SGPT) 18 U/L (8-55); AST (SGOT) 31 U/L (5-34); Albumin 4.3 g/dL (3.5-5.0); Alkaline Phosphatase 90 U/L (40-110); Anion Gap 19 mmol/L (10-20); BUN (Urea Nitrogen) 19 mg/dL (8.9-20.6); Bilirubin, Total 0.9 mg/dL (0.2-1.2); Calc. Creatinine Clearance 0 mL/min (70-130); Calcium 10.2 mg/dL (7.8-10.44); Carbon Dioxide 27 mmol/L (22-29); Chloride 93 mmol/L (98-107); Estimated GFR 67; Globulin 4.2 g/dL (2.4-3.5); Lipase 19 U/L (8-78); Potassium 4.4 mmol/L (3.5-5.1); Protein, Total 8.5 g/dL (6.0-8.3); Sodium 135 mmol/L (136-145)
[2022-05-30 12:32] LABS: Glucose 615 mg/dL (70-105)
[2022-05-30] MEDS ORDERED: Insulin Regular 300 UNITS/3 ML VIAL ONE (12:43)
[2022-05-30] MEDS ORDERED: Ondansetron PF 4 MG/2 ML Vial ONE (13:00)
[2022-05-30] MEDS ORDERED: Morphine 4 MG/ML VIAL ONE (13:00)
[2022-05-30 13:50] LABS: Actual Bicarbonate (HCO3v) 23 mEq/L (22-28); Analyzer IN Cardio ER; Base Excess -1.9 mEq/L (-2.0 to +3.0); Calcium, Ionized (venous) 1.16 mmol/L (1.16-1.32); Chloride (VBG) 104 mmol/L (98-106); Hemoglobin (Hb) 11.7 g/dL (13.2-17.3); Potassium (VBG) 3.63 mmol/L (3.70-5.30); Sodium 139.3 mmol/L (133-146); pH (venous) 7.37 (7.32-7.43)
[2022-05-30] MEDS ORDERED: Electrolyte Replacement Protocol 1 EACH IVPB ONE (14:55)
[2022-05-30] MEDS ORDERED: D5 1/2 NS w/20 mEq KCL 1,000 ML IV PRN (14:55)
[2022-05-30] MEDS ORDERED: Dextrose 5 %-0.45 % NaCl 1,000 ML IV PRN (14:55)
[2022-05-30] MEDS ORDERED: Sodium Chloride 0.9% 1,000 ML IV PRN ×4 (14:55)
[2022-05-30] MEDS ORDERED: NS 0.9% w/ 20 MEQ KCL 1,000 ML IV PRN ×2 (14:55)
[2022-05-30] MEDS ORDERED: HUMULIN R 100 UNITS in Sodium Chloride 0.9% 100 ML IVPB SCH (15:00)
[2022-05-30] MEDS ORDERED: Electrolyte Replacement Protocol FS PRN (15:15)
[2022-05-30 15:17] VITALS: BMI 16.7
[2022-05-30 15:33] LABS: Anion Gap 17 mmol/L (10-20); BUN (Urea Nitrogen) 17 mg/dL (8.9-20.6); Calc. Creatinine Clearance 79 mL/min (70-130); Carbon Dioxide 23 mmol/L (22-29); Chloride 104 mmol/L (98-107); Estimated GFR 98; Glucose 310 mg/dL (70-105); Potassium 4.1 mmol/L (3.5-5.1); Sodium 140 mmol/L (136-145)
[2022-05-30] MEDS ORDERED: Acetaminophen 650 MG Suppository PR PRN (15:49)
[2022-05-30] MEDS ORDERED: Ondansetron PF 4 MG/2 ML Vial IVP PRN (15:49)
[2022-05-30] MEDS ORDERED: Dextrose 5% in Water 1,000 ML IV PRN (19:09)
[2022-05-30] MEDS ORDERED: Dextrose 50% Abboject 50 ML SYRINGE SLOW IVP PRN (19:09)
[2022-05-30 19:18] LABS: Anion Gap 17 mmol/L (10-20); BUN (Urea Nitrogen) 18 mg/dL (8.9-20.6); Calc. Creatinine Clearance 76 mL/min (70-130); Calcium 9.1 mg/dL (7.8-10.44); Carbon Dioxide 25 mmol/L (22-29); Chloride 105 mmol/L (98-107); Estimated GFR 93; Glucose 325 mg/dL (70-105); Potassium 4.9 mmol/L (3.5-5.1); Sodium 142 mmol/L (136-145)
[2022-05-30] MEDS: HumaLOG 300 UNITS/3 ML VIAL SC PRN (19:37)
[2022-05-30] MEDS ORDERED: Famotidine/PF 20 mg/2ml Vial SLOW IVP SCH (21:00)
[2022-05-30 23:15] LABS: Anion Gap 16 mmol/L (10-20); BUN (Urea Nitrogen) 18 mg/dL (8.9-20.6); Calc. Creatinine Clearance 85 mL/min (70-130); Calcium 9.5 mg/dL (7.8-10.44); Carbon Dioxide 25 mmol/L (22-29); Chloride 104 mmol/L (98-107); Estimated GFR 106; Glucose 152 mg/dL (70-105); Sodium 141 mmol/L (136-145)
[2022-05-31 04:10] LABS: Anion Gap 15 mmol/L (10-20); BUN (Urea Nitrogen) 19 mg/dL (8.9-20.6); Calc. Creatinine Clearance 84 mL/min (70-130); Calcium 9.1 mg/dL (7.8-10.44); Carbon Dioxide 26 mmol/L (22-29); Chloride 103 mmol/L (98-107); Estimated GFR 105; Glucose 153 mg/dL (70-105); Sodium 140 mmol/L (136-145)
[2022-05-31] MEDS ORDERED: Insulin Glargine 30 UNITS/0.3 ML VIAL SC SCH ×3 (09:00→21:00)
[2022-05-31] MEDS: 1/2 NS w/KCL 20 mEq 1,000 ML IV SCH ×2 (09:52→18:07)
[2022-05-31] MEDS ORDERED: HumaLOG 300 UNITS/3 ML VIAL SC PRN (11:34)
[2022-05-31] MEDS: HumaLOG 300 UNITS/3 ML VIAL SC PRN (12:49)
[2022-06-01] MEDS: 1/2 NS w/KCL 20 mEq 1,000 ML IV SCH (04:49)
[2022-06-01] MEDS: HumaLOG 300 UNITS/3 ML VIAL SC PRN ×2 (04:56→12:58)
[2022-06-01 06:36] LABS: #Eosinphils 0.1 thou/uL (0.0-0.7); #Lymphocytes 2.2 thou/uL (1.20-3.40); #Monocytes 0.4 thou/uL (0.11-0.59); #Neutrophils 4.2 thou/uL (1.40-6.50); %Basophils 0.3 % (0.0-1.0); %Eosinophils 1.2 % (0.0-10.0); %Lymphocytes 32.2 % (21.0-51.0); %Monocytes 5.2 % (0.0-10.0); %Neutrophils 61.1 % (42.0-75.0); Hemoglobin 10.8 g/dL (14.0-18.0); Mean Corpuscular HGB CONC 33.3 g/dL (32.0-36.0); Mean Corpuscular Hemoglobin 31.2 pg (27.0-31.0); Mean Corpuscular Volume 93.7 fL (78.0-98.0); Mean Platelet Volume 7.8 fL (7.4-10.4); Platelet Count 203 thou/uL (130-400); RBC Distribution Width 11.7 % (11.5-14.5); Red Blood Cell (RBC) Count 3.45 mill/uL (4.70-6.10); White Blood Cell (WBC) Count 6.9 thou/uL (4.8-10.8)
[2022-06-01 06:55] LABS: Anion Gap 11 mmol/L (10-20); BUN (Urea Nitrogen) 13 mg/dL (8.9-20.6); Calc. Creatinine Clearance 87 mL/min (70-130); Calcium 8.9 mg/dL (7.8-10.44); Carbon Dioxide 28 mmol/L (22-29); Chloride 104 mmol/L (98-107); Estimated GFR 109; Glucose 225 mg/dL (70-105); Magnesium 1.9 mg/dL (1.6-2.6); Phosphorus 2.6 mg/dL (2.3-4.7); Potassium 3.6 mmol/L (3.5-5.1); Sodium 139 mmol/L (136-145)
[2022-06-01] MEDS ORDERED: Magnesium 2 GM/50 ML(in water) 2 GM in Premix Bag 1 BAG IVPB SCH (07:15)
[2022-06-01] MEDS ORDERED: Insulin Glargine 30 UNITS/0.3 ML VIAL SC SCH (09:00)
[2022-06-01] MEDS ORDERED: Lantus 1000 UNITS/10 ML VIAL SC SCH (09:00)
[2022-06-01 13:02] VITALS: BP 116/71; TEMP 97.7
== END 2022-06-01 14:01 | disposition home or self-care (01) | DRG 638 ==
LOC: ERS 11:21 → T4-A 13:23 → OBSVTOIN 05-31 08:44
PROVIDERS: ADMIT Internal Medicine; ATTEND Internal Medicine
DX: E10.10 Type 1 diabetes mellitus with ketoacidosis without coma (principal); N17.9 Acute kidney failure, unspecified; E87.1 Hypo-osmolality and hyponatremia; N13.30 Unspecified hydronephrosis; E86.0 Dehydration; K80.20 Calculus of gallbladder without cholecystitis without obstruction; M10.9 Gout, unspecified; D64.9 Anemia, unspecified; E83.42 Hypomagnesemia; Z88.7 Allergy status to serum and vaccine; Z89.431 Acquired absence of right foot; Z20.822 Contact with and (suspected) exposure to COVID-19
CPT/HCPCS: 36415; 36416; 74176; 80048; 80053; 81003; 81015; 82010; 82805; 83690; 83735; 84100; 85025; 93005; 96361; 96374; 96375; 96376; G0378; J1815; J2270; J2405; J3475; J3480; S0028; U0003; U0005

== ENCOUNTER 2022-07-13 21:39 | Emergency (ER) | payer SELFPAY ==
[2022-07-13 22:28] LABS: #Lymphocytes 1.4 thou/uL (1.20-3.40); #Monocytes 0.4 thou/uL (0.11-0.59); #Neutrophils 5.4 thou/uL (1.40-6.50); %Basophils 0.3 % (0.0-1.0); %Eosinophils 0.2 % (0.0-10.0); %Lymphocytes 19.7 % (21.0-51.0); %Monocytes 5.4 % (0.0-10.0); %Neutrophils 74.3 % (42.0-75.0); Hemoglobin 11.6 g/dL (14.0-18.0); Mean Corpuscular HGB CONC 34.5 g/dL (32.0-36.0); Mean Corpuscular Volume 92.8 fL (78.0-98.0); Mean Platelet Volume 7.3 fL (7.4-10.4); Platelet Count 262 thou/uL (130-400); RBC Distribution Width 12.2 % (11.5-14.5); Red Blood Cell (RBC) Count 3.62 mill/uL (4.70-6.10); White Blood Cell (WBC) Count 7.2 thou/uL (4.8-10.8)
[2022-07-13 22:45] LABS: ALT (SGPT) 10 U/L (8-55); AST (SGOT) 13 U/L (5-34); Albumin 3.9 g/dL (3.5-5.0); Alkaline Phosphatase 82 U/L (40-110); Anion Gap 14 mmol/L (10-20); BUN (Urea Nitrogen) 29 mg/dL (8.9-20.6); Bilirubin, Total 0.5 mg/dL (0.2-1.2); Calc. Creatinine Clearance 0 mL/min (70-130); Calcium 9.6 mg/dL (7.8-10.44); Carbon Dioxide 28 mmol/L (22-29); Chloride 104 mmol/L (98-107); Estimated GFR 89; Globulin 3.9 g/dL (2.4-3.5); Glucose 276 mg/dL (70-105); Lipase 12 U/L (8-78); Potassium 4.6 mmol/L (3.5-5.1); Protein, Total 7.8 g/dL (6.0-8.3); Sodium 141 mmol/L (136-145)
[2022-07-13] MEDS ORDERED: Mag-Al 1200 mg/1200 mg/30 ML UDCUP ONE (23:17)
[2022-07-13] MEDS ORDERED: Ondansetron PF 4 MG/2 ML Vial ONE (23:17)
[2022-07-13] MEDS ORDERED: Lidocaine Viscous Sol 2% 15 ml UD Cup ONE (23:17)
[2022-07-13] MEDS ORDERED: Ketorolac Tromethamine 30 MG/ML VIAL ONE (23:17)
== END 2022-07-14 00:52 | disposition home or self-care (01) ==
LOC: ERS 21:39
DX: K29.70 Gastritis, unspecified, without bleeding (principal)
CPT/HCPCS: 36415; 80053; 83690; 85025; 96361; 96374; 96375; J1885; J2405

== ENCOUNTER 2022-11-12 13:26 | Emergency (ER) | payer SELFPAY ==
[2022-11-12] MEDS ORDERED: Iopamidol-370 76% 500 ML 1 ML ONE (13:33)
[2022-11-12 13:58] LABS: #Lymphocytes 1.1 thou/uL (1.20-3.40); #Monocytes 0.3 thou/uL (0.11-0.59); #Neutrophils 10.6 thou/uL (1.40-6.50); %Basophils 0.3 % (0.0-1.0); %Eosinophils 0.2 % (0.0-10.0); %Lymphocytes 9.1 % (21.0-51.0); %Monocytes 2.5 % (0.0-10.0); %Neutrophils 87.9 % (42.0-75.0); Hemoglobin 12.2 g/dL (14.0-18.0); Mean Corpuscular HGB CONC 34.4 g/dL (32.0-36.0); Mean Corpuscular Hemoglobin 31.2 pg (27.0-31.0); Mean Corpuscular Volume 90.8 fl (78.0-98.0); Mean Platelet Volume 7.6 fL (7.4-10.4); Platelet Count 222 10x3/uL (130-400); RBC Distribution Width 12.9 % (11.5-14.5)
[2022-11-12 14:27] LABS: ALT (SGPT) 14 U/L (8-55); AST (SGOT) 18 U/L (5-34); Alkaline Phosphatase 105 U/L (40-110); Anion Gap 13 mmol/L (10-20); BUN (Urea Nitrogen) 19 mg/dL (8.9-20.6); Bilirubin, Total 0.7 mg/dL (0.2-1.2); Calc. Creatinine Clearance 0 mL/min (70-130); Calcium 9.1 mg/dL (7.8-10.44); Carbon Dioxide 24 mmol/L (22-29); Chloride 104 mmol/L (98-107); Estimated GFR 86; Globulin 3.5 g/dL (2.4-3.5); Lipase 9 U/L (8-78); Magnesium 2.1 mg/dL (1.6-2.6); Potassium 3.9 mmol/L (3.5-5.1); Protein, Total 7.5 g/dL (6.0-8.3); Sodium 137 mmol/L (136-145)
[2022-11-12 14:44] LABS: Glucose 486 mg/dL (70-105)
[2022-11-12] MEDS ORDERED: Ondansetron PF 4 MG/2 ML Vial ONE ×3 (15:23→17:23)
[2022-11-12] MEDS ORDERED: Insulin Regular 300 UNITS/3 ML VIAL ONE (15:23)
[2022-11-12] MEDS ORDERED: Morphine 4 MG/ML VIAL ONE (17:23)
[2022-11-12 18:57] LABS: Actual Bicarbonate (HCO3v) 22 mEq/L (22-28); Analyzer IN Cardio ER; Base Excess -2.1 mEq/L (-2.0 to +3.0); Calcium, Ionized (venous) 1.11 mmol/L (1.16-1.32); Chloride (VBG) 107 mmol/L (98-106); Hemoglobin (Hb) 12.3 g/dL (13.2-17.3); Potassium (VBG) 3.77 mmol/L (3.70-5.30); Sodium 139.3 mmol/L (133-146); pH (venous) 7.42 (7.32-7.43)
== END 2022-11-12 19:45 | disposition home or self-care (01) ==
LOC: ERS 13:26
DX: E10.65 Type 1 diabetes mellitus with hyperglycemia (principal); Z79.4 Long term (current) use of insulin
CPT/HCPCS: 36415; 36416; 71045; 74177; 80053; 82010; 82805; 83605; 83690; 83735; 85025; 93005; 96374; 96375; 96376; J1815; J2270; J2405; Q9967

== ENCOUNTER 2023-07-31 18:20 | Inpatient (IN) | payer SELFPAY ==
[2023-07-31] MEDS ORDERED: Vancomycin 1 GM/200 ML (FROZEN) BAG ONE (20:31)
[2023-07-31] MEDS ORDERED: Piperacillin/Tazobactam 4.5 GM VIAL ONE (20:33)
[2023-07-31 20:37] LABS: #Eosinphils 0.2 thou/uL (0.0-0.7); #Monocytes 0.6 thou/uL (0.11-0.59); #Neutrophils 4.9 thou/uL (1.40-6.50); %Basophils 0.1 % (0.0-1.0); %Eosinophils 1.9 % (0.0-10.0); %Lymphocytes 28.4 % (21.0-51.0); %Monocytes 7.1 % (0.0-10.0); %Neutrophils 62.2 % (42.0-75.0); Hematocrit 32.6 % (42.0-52.0); Mean Corpuscular HGB CONC 33.7 g/dL (32.0-36.0); Mean Corpuscular Hemoglobin 30.4 pg (27.0-31.0); Mean Corpuscular Volume 90.1 fl (78.0-98.0); Mean Platelet Volume 9.6 fL (7.4-10.4); Platelet Count 277 10x3/uL (130-400); RBC Distribution Width 12.3 % (11.5-14.5); Red Blood Cell (RBC) Count 3.62 mill/uL (4.70-6.10); White Blood Cell (WBC) Count 7.8 10x3/uL (4.8-10.8)
[2023-07-31 20:58] LABS: CRP (Inflammatory) 1.27 mg/dL (= or < 0.5); Magnesium 2.4 mg/dL (1.6-2.6)
[2023-07-31 20:59] LABS: ALT (SGPT) 20 U/L (8-55); AST (SGOT) 20 U/L (5-34); Albumin 3.7 g/dL (3.5-5.0); Alkaline Phosphatase 106 U/L (40-110); Anion Gap 8 mmol/L (10-20); BUN (Urea Nitrogen) 19 mg/dL (8.9-20.6); Bilirubin, Total 0.2 mg/dL (0.2-1.2); Calc. Creatinine Clearance 0 mL/min (70-130); Calcium 9.2 mg/dL (7.8-10.44); Carbon Dioxide 31 mmol/L (22-29); Chloride 103 mmol/L (98-107); Estimated GFR 59; Globulin 3.5 g/dL (2.4-3.5); Glucose 366 mg/dL (70-105); Potassium 4.9 mmol/L (3.5-5.1); Protein, Total 7.2 g/dL (6.0-8.3); Sodium 137 mmol/L (136-145)
[2023-07-31] MEDS ORDERED: HumaLOG 300 UNITS/3 ML VIAL SC PRN (22:03)
[2023-07-31] MEDS ORDERED: Glucagon 1 MG/ML KIT IM PRN (22:03)
[2023-07-31] MEDS ORDERED: Dextrose 50% Abboject 50 ML SYRINGE SLOW IVP PRN (22:03)
[2023-07-31] MEDS ORDERED: Dextrose 5% in Water 1,000 ML IV PRN (22:03)
[2023-07-31 22:46] LABS: Lactic Acid 0.8 mmol/L (0.5-2.2)
[2023-07-31] MEDS ORDERED: Ondansetron ODT 4 MG TAB SL PRN (23:00)
[2023-07-31] MEDS ORDERED: Ondansetron PF 4 MG/2 ML Vial IVP PRN (23:00)
[2023-07-31 23:33] VITALS: BMI 15.5
[2023-07-31] MEDS: Sodium Chloride 0.9% 1,000 ML IV SCH (23:53)
[2023-07-31] MEDS: Cefepime 1 GM in Sodium Chloride 0.9% 100 ML IVPB SCH (23:59)
[2023-08-01 03:44] LABS: Hemoglobin A1c 9.5 % (4.0-6.0)
[2023-08-01 05:54] LABS: #Eosinphils 0.2 thou/uL (0.0-0.7); #Monocytes 0.6 thou/uL (0.11-0.59); #Neutrophils 3.3 thou/uL (1.40-6.50); %Basophils 0.2 % (0.0-1.0); %Eosinophils 2.5 % (0.0-10.0); %Lymphocytes 36.6 % (21.0-51.0); %Monocytes 8.7 % (0.0-10.0); %Neutrophils 51.8 % (42.0-75.0); Hematocrit 28.6 % (42.0-52.0); Hemoglobin 9.3 g/dL (14.0-18.0); Mean Corpuscular HGB CONC 32.5 g/dL (32.0-36.0); Mean Corpuscular Hemoglobin 29.7 pg (27.0-31.0); Mean Corpuscular Volume 91.4 fl (78.0-98.0); Mean Platelet Volume 9.7 fL (7.4-10.4); Platelet Count 229 10x3/uL (130-400); RBC Distribution Width 12.5 % (11.5-14.5); Red Blood Cell (RBC) Count 3.13 mill/uL (4.70-6.10); White Blood Cell (WBC) Count 6.3 10x3/uL (4.8-10.8)
[2023-08-01] MEDS: HumaLOG 300 UNITS/3 ML VIAL SC PRN ×2 (06:34→17:47)
[2023-08-01 06:35] LABS: ALT (SGPT) 15 U/L (8-55); AST (SGOT) 15 U/L (5-34); Alkaline Phosphatase 83 U/L (40-110); Anion Gap 7 mmol/L (10-20); BUN (Urea Nitrogen) 17 mg/dL (8.9-20.6); Bilirubin, Total 0.2 mg/dL (0.2-1.2); Calc. Creatinine Clearance 60 mL/min (70-130); Calcium 8.2 mg/dL (7.8-10.44); Carbon Dioxide 27 mmol/L (22-29); Chloride 110 mmol/L (98-107); Estimated GFR 75; Globulin 2.9 g/dL (2.4-3.5); Potassium 4.9 mmol/L (3.5-5.1); Protein, Total 5.9 g/dL (6.0-8.3); Sodium 139 mmol/L (136-145)
[2023-08-01 06:42] LABS: Glucose 409 mg/dL (70-105)
[2023-08-01] MEDS: Sodium Chloride 0.9% 1,000 ML IV SCH ×3 (06:55→19:00)
[2023-08-01] MEDS ORDERED: Dextrose 50% Abboject 50 ML SYRINGE ONE (09:11)
[2023-08-01] MEDS ORDERED: fentaNYL PF 100 MCG/2 ML SYRINGE ONE (09:17)
[2023-08-01] MEDS: Heparin 5,000 UNITS/ML VIAL SC SCH ×3 (09:37→20:30)
[2023-08-01] MEDS: Vancomycin HCl 500 MG in Sodium Chloride 0.9% 100 ML IVPB SCH ×2 (09:38→20:29)
[2023-08-01] MEDS ORDERED: Ketamine 50 MG/ML (10ML VIAL) ONE (09:52)
[2023-08-01] MEDS ORDERED: Midazolam HCl 2 mg/2 ml Vial ONE (09:52)
[2023-08-01] MEDS ORDERED: Bupivacaine PF 0.5% 30 ML VIAL ONE (10:16)
[2023-08-01] MEDS ORDERED: Dexamethasone 4 mg/ml Vial ONE (10:16)
[2023-08-01] MEDS ORDERED: fentaNYL 50 mcg/mL 1 mL Vial SLOW IVP PRN ×2 (11:07)
[2023-08-01] MEDS ORDERED: traMADol HCl 50 MG TAB PO PRN ×2 (11:07)
[2023-08-01] MEDS: Cefepime 1 GM in Sodium Chloride 0.9% 100 ML IVPB SCH (12:29)
[2023-08-01] MEDS: HumaLOG 300 UNITS/3 ML VIAL SC SCH ×2 (12:36→17:47)
[2023-08-01 18:01] LABS: Creatinine, Urine 41.64 mg/dL (63-166)
[2023-08-01] MEDS: Insulin Glargine 30 UNITS/0.3 ML VIAL SC SCH (20:32)
[2023-08-02] MEDS: Cefepime 1 GM in Sodium Chloride 0.9% 100 ML IVPB SCH ×3 (00:33→23:39)
[2023-08-02] MEDS: Acetaminophen 325 MG TAB PO PRN (00:34)
[2023-08-02] MEDS: Sodium Chloride 0.9% 1,000 ML IV SCH ×3 (05:35→23:39)
[2023-08-02] MEDS: HumaLOG 300 UNITS/3 ML VIAL SC PRN (05:36)
[2023-08-02 08:46] LABS: #Eosinphils 0.1 thou/uL (0.0-0.7); #Monocytes 0.5 thou/uL (0.11-0.59); #Neutrophils 3.5 thou/uL (1.40-6.50); %Basophils 0.3 % (0.0-1.0); %Eosinophils 1.7 % (0.0-10.0); %Monocytes 6.9 % (0.0-10.0); %Neutrophils 52.8 % (42.0-75.0); Hematocrit 27.7 % (42.0-52.0); Mean Corpuscular HGB CONC 32.5 g/dL (32.0-36.0); Mean Corpuscular Hemoglobin 30.1 pg (27.0-31.0); Mean Corpuscular Volume 92.6 fl (78.0-98.0); Mean Platelet Volume 9.5 fL (7.4-10.4); Platelet Count 240 10x3/uL (130-400); RBC Distribution Width 12.4 % (11.5-14.5); Red Blood Cell (RBC) Count 2.99 mill/uL (4.70-6.10); White Blood Cell (WBC) Count 6.7 10x3/uL (4.8-10.8)
[2023-08-02 09:07] LABS: Anion Gap 8 mmol/L (10-20); BUN (Urea Nitrogen) 8 mg/dL (8.9-20.6); Calc. Creatinine Clearance 98 mL/min (70-130); Calcium 8.6 mg/dL (7.8-10.44); Carbon Dioxide 25 mmol/L (22-29); Chloride 114 mmol/L (98-107); Estimated GFR 121; Glucose 67 mg/dL (70-105); Potassium 4.2 mmol/L (3.5-5.1); Sodium 143 mmol/L (136-145)
[2023-08-02 09:11] LABS: Vancomycin, Trough 9.1 ug/mL
[2023-08-02] MEDS: Heparin 5,000 UNITS/ML VIAL SC SCH ×3 (09:34→21:00)
[2023-08-02] MEDS: HumaLOG 300 UNITS/3 ML VIAL SC SCH ×3 (09:35→17:26)
[2023-08-02] MEDS: Vancomycin HCl 500 MG in Sodium Chloride 0.9% 100 ML IVPB SCH ×2 (09:35→17:26)
[2023-08-02] MEDS: Insulin Glargine 30 UNITS/0.3 ML VIAL SC SCH (21:02)
[2023-08-03] MEDS: Vancomycin HCl 500 MG in Sodium Chloride 0.9% 100 ML IVPB SCH ×2 (01:11→14:49)
[2023-08-03] MEDS: HumaLOG 300 UNITS/3 ML VIAL SC PRN (06:10)
[2023-08-03 06:56] LABS: #Eosinphils 0.1 thou/uL (0.0-0.7); #Monocytes 0.3 thou/uL (0.11-0.59); #Neutrophils 2.3 thou/uL (1.40-6.50); %Basophils 0.4 % (0.0-1.0); %Eosinophils 2.1 % (0.0-10.0); %Lymphocytes 47.5 % (21.0-51.0); %Monocytes 6.4 % (0.0-10.0); %Neutrophils 43.4 % (42.0-75.0); Hematocrit 27.2 % (42.0-52.0); Mean Corpuscular HGB CONC 33.1 g/dL (32.0-36.0); Mean Corpuscular Hemoglobin 30.2 pg (27.0-31.0); Mean Corpuscular Volume 91.3 fl (78.0-98.0); Mean Platelet Volume 9.4 fL (7.4-10.4); Platelet Count 244 10x3/uL (130-400); RBC Distribution Width 12.1 % (11.5-14.5); Red Blood Cell (RBC) Count 2.98 mill/uL (4.70-6.10); White Blood Cell (WBC) Count 5.3 10x3/uL (4.8-10.8)
[2023-08-03 07:21] LABS: Anion Gap 11 mmol/L (10-20); BUN (Urea Nitrogen) 5 mg/dL (8.9-20.6); Calc. Creatinine Clearance 93 mL/min (70-130); Calcium 8.4 mg/dL (7.8-10.44); Carbon Dioxide 25 mmol/L (22-29); Chloride 107 mmol/L (98-107); Estimated GFR 119; Glucose 254 mg/dL (70-105); Potassium 3.9 mmol/L (3.5-5.1); Sodium 139 mmol/L (136-145)
[2023-08-03] MEDS: Sodium Chloride 0.9% 1,000 ML IV SCH ×3 (09:17→20:13)
[2023-08-03] MEDS: HumaLOG 300 UNITS/3 ML VIAL SC SCH ×3 (09:18→18:01)
[2023-08-03] MEDS: Heparin 5,000 UNITS/ML VIAL SC SCH ×3 (09:20→20:12)
[2023-08-03 09:26] LABS: Vancomycin, Trough 13.1 ug/mL
[2023-08-03] MEDS: Cefepime 1 GM in Sodium Chloride 0.9% 100 ML IVPB SCH (11:42)
[2023-08-03] MEDS: Vancomycin HCl 750 MG in Sodium Chloride 0.9% 250 ML 250 ML IVPB SCH ×2 (11:43→18:11)
[2023-08-03] MEDS: Insulin Glargine 30 UNITS/0.3 ML VIAL SC SCH (20:13)
[2023-08-03] MEDS ORDERED: Labetalol HCl 100 MG TAB PO SCH (22:45)
[2023-08-04] MEDS: Vancomycin HCl 750 MG in Sodium Chloride 0.9% 250 ML 250 ML IVPB SCH ×3 (01:19→18:46)
[2023-08-04 06:32] LABS: #Eosinphils 0.1 thou/uL (0.0-0.7); #Monocytes 0.3 thou/uL (0.11-0.59); #Neutrophils 2.1 thou/uL (1.40-6.50); %Basophils 0.4 % (0.0-1.0); %Eosinophils 2.2 % (0.0-10.0); %Lymphocytes 43.9 % (21.0-51.0); %Monocytes 7.2 % (0.0-10.0); %Neutrophils 46.1 % (42.0-75.0); Hematocrit 27.6 % (42.0-52.0); Hemoglobin 9.4 g/dL (14.0-18.0); Mean Corpuscular HGB CONC 34.1 g/dL (32.0-36.0); Mean Corpuscular Hemoglobin 31.1 pg (27.0-31.0); Mean Corpuscular Volume 91.4 fl (78.0-98.0); Mean Platelet Volume 9.2 fL (7.4-10.4); Platelet Count 231 10x3/uL (130-400); RBC Distribution Width 12.1 % (11.5-14.5); Red Blood Cell (RBC) Count 3.02 mill/uL (4.70-6.10); White Blood Cell (WBC) Count 4.5 10x3/uL (4.8-10.8)
[2023-08-04 06:57] LABS: Anion Gap 11 mmol/L (10-20); BUN (Urea Nitrogen) 7 mg/dL (8.9-20.6); Calc. Creatinine Clearance 101 mL/min (70-130); Calcium 8.8 mg/dL (7.8-10.44); Carbon Dioxide 25 mmol/L (22-29); Chloride 105 mmol/L (98-107); Estimated GFR 122; Glucose 174 mg/dL (70-105); Potassium 3.7 mmol/L (3.5-5.1); Sodium 137 mmol/L (136-145)
[2023-08-04] MEDS ORDERED: Ondansetron PF 4 MG/2 ML Vial IVP SCH (09:00)
[2023-08-04 09:44] LABS: Vancomycin, Trough 20.6 ug/mL
[2023-08-04] MEDS: Heparin 5,000 UNITS/ML VIAL SC SCH ×3 (10:02→20:54)
[2023-08-04] MEDS: HumaLOG 300 UNITS/3 ML VIAL SC SCH ×3 (10:02→18:37)
[2023-08-04] MEDS ORDERED: Promethazine HCl 25 MG in Sodium Chloride 0.9% 50 ML IVPB PRN (11:01)
[2023-08-04] MEDS: Cefepime 1 GM in Sodium Chloride 0.9% 100 ML IVPB SCH ×2 (12:29)
[2023-08-04] MEDS: Acetaminophen 325 MG TAB PO PRN ×2 (17:36→23:10)
[2023-08-04] MEDS: Insulin Glargine 30 UNITS/0.3 ML VIAL SC SCH (20:43)
[2023-08-04] MEDS: Cefepime 2 GM in Sodium Chloride 0.9% 100 ML IVPB SCH (22:26)
[2023-08-05] MEDS: Vancomycin HCl 750 MG in Sodium Chloride 0.9% 250 ML 250 ML IVPB SCH (02:19)
[2023-08-05 05:39] LABS: #Monocytes 0.6 thou/uL (0.11-0.59); %Basophils 0.2 % (0.0-1.0); %Eosinophils 0.3 % (0.0-10.0); %Lymphocytes 34.7 % (21.0-51.0); %Monocytes 6.7 % (0.0-10.0); %Neutrophils 57.9 % (42.0-75.0); Hemoglobin 9.2 g/dL (14.0-18.0); Mean Corpuscular HGB CONC 34.1 g/dL (32.0-36.0); Mean Corpuscular Hemoglobin 30.4 pg (27.0-31.0); Mean Corpuscular Volume 89.1 fl (78.0-98.0); Mean Platelet Volume 9.1 fL (7.4-10.4); Platelet Count 238 10x3/uL (130-400); RBC Distribution Width 12.1 % (11.5-14.5); Red Blood Cell (RBC) Count 3.03 mill/uL (4.70-6.10); White Blood Cell (WBC) Count 8.7 10x3/uL (4.8-10.8)
[2023-08-05 06:07] LABS: Anion Gap 11 mmol/L (10-20); BUN (Urea Nitrogen) 11 mg/dL (8.9-20.6); Calc. Creatinine Clearance 93 mL/min (70-130); Calcium 8.9 mg/dL (7.8-10.44); Carbon Dioxide 28 mmol/L (22-29); Chloride 104 mmol/L (98-107); Estimated GFR 119; Glucose 134 mg/dL (70-105); Potassium 3.6 mmol/L (3.5-5.1); Sodium 139 mmol/L (136-145)
[2023-08-05] MEDS: HumaLOG 300 UNITS/3 ML VIAL SC SCH ×3 (09:07→18:12)
[2023-08-05] MEDS: Heparin 5,000 UNITS/ML VIAL SC SCH ×3 (09:07→20:54)
[2023-08-05 09:11] LABS: Vancomycin, Trough 26.8 ug/mL
[2023-08-05] MEDS: Cefepime 2 GM in Sodium Chloride 0.9% 100 ML IVPB SCH ×2 (12:02→23:06)
[2023-08-05] MEDS: Loperamide HCl 2 MG CAP PO SCH ×2 (18:13→23:06)
[2023-08-05] MEDS: Vancomycin HCl 500 MG in Sodium Chloride 0.9% 100 ML IVPB SCH (18:13)
[2023-08-05] MEDS: Insulin Glargine 30 UNITS/0.3 ML VIAL SC SCH (20:47)
[2023-08-06] MEDS: Vancomycin HCl 500 MG in Sodium Chloride 0.9% 100 ML IVPB SCH ×4 (01:38→18:06)
[2023-08-06] MEDS: Loperamide HCl 2 MG CAP PO SCH ×4 (05:26→23:25)
[2023-08-06 06:28] LABS: #Eosinphils 0.1 thou/uL (0.0-0.7); #Monocytes 0.5 thou/uL (0.11-0.59); #Neutrophils 3.1 thou/uL (1.40-6.50); %Basophils 0.3 % (0.0-1.0); %Eosinophils 1.6 % (0.0-10.0); %Lymphocytes 40.5 % (21.0-51.0); %Monocytes 8.5 % (0.0-10.0); %Neutrophils 48.9 % (42.0-75.0); Hematocrit 25.9 % (42.0-52.0); Hemoglobin 8.7 g/dL (14.0-18.0); Mean Corpuscular HGB CONC 33.6 g/dL (32.0-36.0); Mean Corpuscular Hemoglobin 30.5 pg (27.0-31.0); Mean Corpuscular Volume 90.9 fl (78.0-98.0); Mean Platelet Volume 9.1 fL (7.4-10.4); Platelet Count 222 10x3/uL (130-400); RBC Distribution Width 12.1 % (11.5-14.5); Red Blood Cell (RBC) Count 2.85 mill/uL (4.70-6.10); White Blood Cell (WBC) Count 6.3 10x3/uL (4.8-10.8)
[2023-08-06] MEDS: HumaLOG 300 UNITS/3 ML VIAL SC PRN ×2 (06:45→17:38)
[2023-08-06 07:46] LABS: Anion Gap 11 mmol/L (10-20); BUN (Urea Nitrogen) 12 mg/dL (8.9-20.6); Calc. Creatinine Clearance 83 mL/min (70-130); Calcium 8.7 mg/dL (7.8-10.44); Carbon Dioxide 26 mmol/L (22-29); Chloride 102 mmol/L (98-107); Estimated GFR 110; Glucose 314 mg/dL (70-105); Potassium 3.7 mmol/L (3.5-5.1); Sodium 135 mmol/L (136-145)
[2023-08-06] MEDS: Heparin 5,000 UNITS/ML VIAL SC SCH ×3 (09:13→19:55)
[2023-08-06] MEDS: Saccharomyces boulardii 250 MG CAP PO SCH (09:13)
[2023-08-06] MEDS: HumaLOG 300 UNITS/3 ML VIAL SC SCH ×3 (09:14→17:37)
[2023-08-06] MEDS: Cefepime 2 GM in Sodium Chloride 0.9% 100 ML IVPB SCH ×2 (12:27→23:25)
[2023-08-06 17:55] LABS: Vancomycin, Trough 18.1 ug/mL
[2023-08-06] MEDS: Insulin Glargine 30 UNITS/0.3 ML VIAL SC SCH (19:54)
[2023-08-07] MEDS: Vancomycin HCl 500 MG in Sodium Chloride 0.9% 100 ML IVPB SCH ×2 (02:12→10:08)
[2023-08-07] MEDS ORDERED: Sevoflurane 250 ML INH ANEST BOTTLE ONE (04:50)
[2023-08-07] MEDS: Loperamide HCl 2 MG CAP PO SCH ×2 (05:29→12:25)
[2023-08-07 05:42] LABS: #Eosinphils 0.1 thou/uL (0.0-0.7); #Monocytes 0.6 thou/uL (0.11-0.59); #Neutrophils 2.9 thou/uL (1.40-6.50); %Basophils 0.3 % (0.0-1.0); %Eosinophils 1.7 % (0.0-10.0); %Lymphocytes 49.4 % (21.0-51.0); %Monocytes 7.9 % (0.0-10.0); %Neutrophils 40.7 % (42.0-75.0); Hematocrit 29.1 % (42.0-52.0); Hemoglobin 9.6 g/dL (14.0-18.0); Mean Corpuscular Hemoglobin 30.3 pg (27.0-31.0); Mean Corpuscular Volume 91.8 fl (78.0-98.0); Mean Platelet Volume 9.3 fL (7.4-10.4); Platelet Count 254 10x3/uL (130-400); RBC Distribution Width 12.1 % (11.5-14.5); Red Blood Cell (RBC) Count 3.17 mill/uL (4.70-6.10); White Blood Cell (WBC) Count 7.1 10x3/uL (4.8-10.8)
[2023-08-07 06:10] LABS: Anion Gap 15 mmol/L (10-20); BUN (Urea Nitrogen) 11 mg/dL (8.9-20.6); Calc. Creatinine Clearance 83 mL/min (70-130); Calcium 9.3 mg/dL (7.8-10.44); Carbon Dioxide 27 mmol/L (22-29); Chloride 105 mmol/L (98-107); Estimated GFR 110; Glucose 58 mg/dL (70-105); Potassium 3.5 mmol/L (3.5-5.1); Sodium 143 mmol/L (136-145)
[2023-08-07] MEDS ORDERED: fentaNYL PF 100 MCG/2 ML SYRINGE ONE (07:04)
[2023-08-07] MEDS ORDERED: EPINEPHrine 1 MG/ML AMP ONE (07:59)
[2023-08-07] MEDS ORDERED: Dexamethasone 4 mg/ml Vial ONE (07:59)
[2023-08-07] MEDS ORDERED: Bupivacaine PF 0.5% 30 ML VIAL ONE (07:59)
[2023-08-07] MEDS ORDERED: ePHEDrine Sulfate 50 MG/10 ML VIAL ONE (08:48)
[2023-08-07] MEDS ORDERED: PROPOFOL 200 MG/20 ML VIAL ONE (08:48)
[2023-08-07] MEDS ORDERED: Lidocaine 1% PF 5 ML VIAL ONE (08:48)
[2023-08-07] MEDS: HumaLOG 300 UNITS/3 ML VIAL SC SCH ×2 (09:42→12:25)
[2023-08-07] MEDS: Saccharomyces boulardii 250 MG CAP PO SCH (10:08)
[2023-08-07] MEDS: Heparin 5,000 UNITS/ML VIAL SC SCH ×2 (10:08→15:36)
[2023-08-07 11:38] VITALS: BP 148/99; TEMP 97.8
[2023-08-07] MEDS: Cefepime 2 GM in Sodium Chloride 0.9% 100 ML IVPB SCH (12:25)
[2023-08-07] MEDS ORDERED: Insulin Glargine 30 UNITS/0.3 ML VIAL SC SCH (21:00)
== END 2023-08-07 15:50 | disposition home or self-care (01) | DRG 256 ==
LOC: ERS 18:20 → SURG B 22:01
PROVIDERS: ADMIT Internal Medicine; ATTEND Hospitalist
PROC: 0Y6Q0Z3 Detachment at Left 1st Toe, Low, Open Approach (ICD-10-PCS; principal; 2023-08-01)
PROC: 0QBR0ZZ Excision of Left Toe Phalanx, Open Approach (ICD-10-PCS; 2023-08-07)
DX: E10.52 Type 1 diabetes mellitus with diabetic peripheral angiopathy with gangrene (principal); N17.9 Acute kidney failure, unspecified; R78.81 Bacteremia; E10.621 Type 1 diabetes mellitus with foot ulcer; L97.529 Non-pressure chronic ulcer of other part of left foot with unspecified severity; M10.9 Gout, unspecified; L03.032 Cellulitis of left toe; Z89.511 Acquired absence of right leg below knee; Z88.7 Allergy status to serum and vaccine; D63.8 Anemia in other chronic diseases classified elsewhere
CPT/HCPCS: 36415; 36416; 80048; 80053; 80202; 82570; 82728; 83036; 83540; 83550; 83605; 83735; 84300; 85025; 86140; 87040; 87077; 87149; 87186; 88305; 88311; 93923; 96361; 96365; 96367; 97139; J0171; J0692; J1100; J1644; J1815; J2250; J2405; J2543; J2550; J2704; J3010; J3370; J3370-JW; J3490; J7050; J7070; J7999; S0020

== ENCOUNTER 2023-12-03 20:15 | Emergency (ER) | payer SELFPAY ==
[2023-12-03] MEDS ORDERED: Clindamycin/D5W 900 MG in Premix 1 BAG IVPB SCH (21:30)
[2023-12-03 21:56] LABS: #Eosinphils 0.1 thou/uL (0.0-0.7); #Monocytes 0.5 thou/uL (0.11-0.59); #Neutrophils 5.7 thou/uL (1.40-6.50); %Basophils 0.2 % (0.0-1.0); %Lymphocytes 24.3 % (21.0-51.0); %Monocytes 5.5 % (0.0-10.0); %Neutrophils 68.8 % (42.0-75.0); Hematocrit 28.3 % (42.0-52.0); Hemoglobin 9.5 g/dL (14.0-18.0); Mean Corpuscular HGB CONC 33.6 g/dL (32.0-36.0); Mean Corpuscular Hemoglobin 29.9 pg (27.0-31.0); Platelet Count 331 10x3/uL (130-400); RBC Distribution Width 11.4 % (11.5-14.5); Red Blood Cell (RBC) Count 3.18 mill/uL (4.70-6.10); White Blood Cell (WBC) Count 8.2 10x3/uL (4.8-10.8)
[2023-12-03 22:23] LABS: ALT (SGPT) 23 U/L (8-55); AST (SGOT) 18 U/L (5-34); Albumin 3.5 g/dL (3.5-5.0); Alkaline Phosphatase 83 U/L (40-110); Anion Gap 10 mmol/L (10-20); BUN (Urea Nitrogen) 15 mg/dL (8.9-20.6); Bilirubin, Total 0.2 mg/dL (0.2-1.2); Calc. Creatinine Clearance 0 mL/min (70-130); Carbon Dioxide 24 mmol/L (22-29); Chloride 110 mmol/L (98-107); Estimated GFR 91; Glucose 155 mg/dL (70-105); Potassium 4.6 mmol/L (3.5-5.1); Protein, Total 6.5 g/dL (6.0-8.3); Sodium 139 mmol/L (136-145)
== END 2023-12-03 22:57 | disposition home or self-care (01) ==
LOC: ERS 20:15
DX: S62.600A Fracture of unspecified phalanx of right index finger, initial encounter for closed fracture (principal); L03.011 Cellulitis of right finger; E10.9 Type 1 diabetes mellitus without complications; W45.8XXA Other foreign body or object entering through skin, initial encounter
CPT/HCPCS: 80053; 85025; 86140; 96365; J3490

== ENCOUNTER 2023-12-23 10:01 | Inpatient (IN) | payer OTHER, SELFPAY ==
[2023-12-23] MEDS ORDERED: Piperacillin/Tazobactam 4.5 GM VIAL ONE (11:32)
[2023-12-23] MEDS ORDERED: Sodium Chloride 0.9% 100 ML ONE (11:32)
[2023-12-23 11:59] LABS: #Eosinphils 0.1 thou/uL (0.0-0.7); #Monocytes 0.3 thou/uL (0.11-0.59); %Basophils 0.3 % (0.0-1.0); %Eosinophils 2.3 % (0.0-10.0); %Lymphocytes 26.5 % (21.0-51.0); %Monocytes 4.9 % (0.0-10.0); %Neutrophils 65.8 % (42.0-75.0); Hematocrit 30.6 % (42.0-52.0); Hemoglobin 10.4 g/dL (14.0-18.0); Mean Corpuscular Hemoglobin 30.1 pg (27.0-31.0); Mean Corpuscular Volume 88.7 fl (78.0-98.0); Mean Platelet Volume 9.9 fL (7.4-10.4); Platelet Count 233 10x3/uL (130-400); RBC Distribution Width 12.4 % (11.5-14.5); Red Blood Cell (RBC) Count 3.45 mill/uL (4.70-6.10); White Blood Cell (WBC) Count 6.1 10x3/uL (4.8-10.8)
[2023-12-23 13:04] LABS: ALT (SGPT) 29 U/L (8-55); AST (SGOT) 20 U/L (5-34); Albumin 3.6 g/dL (3.5-5.0); Alkaline Phosphatase 90 U/L (40-110); Anion Gap 8 mmol/L (10-20); BUN (Urea Nitrogen) 21 mg/dL (8.9-20.6); Bilirubin, Total 0.3 mg/dL (0.2-1.2); Calc. Creatinine Clearance 0 mL/min (70-130); Carbon Dioxide 23 mmol/L (22-29); Chloride 113 mmol/L (98-107); Estimated GFR 89; Globulin 3.7 g/dL (2.4-3.5); Glucose 107 mg/dL (70-105); Potassium 4.6 mmol/L (3.5-5.1); Protein, Total 7.3 g/dL (6.0-8.3); Sodium 139 mmol/L (136-145)
[2023-12-23] MEDS ORDERED: VANCOMYCIN IVPB PRN (14:05)
[2023-12-23] MEDS ORDERED: Dextrose 50% Abboject 50 ML SYRINGE SLOW IVP PRN (15:02)
[2023-12-23] MEDS ORDERED: Dextrose 5% in Water 1,000 ML IV PRN (15:02)
[2023-12-23] MEDS ORDERED: Glucagon 1 MG/ML KIT IM PRN (15:02)
[2023-12-23] MEDS: Vancomycin (BATCH) 1.25 GM in Premix 1 BAG IVPB SCH (15:39)
[2023-12-23] MEDS: Piperacillin/Tazobactam 3.375 GM in Sodium Chloride 0.9% 100 ML IVPB SCH (16:31)
[2023-12-23 17:35] VITALS: BMI 17.0
[2023-12-24 06:12] LABS: #Eosinphils 0.2 thou/uL (0.0-0.7); #Monocytes 0.5 thou/uL (0.11-0.59); #Neutrophils 4.1 thou/uL (1.40-6.50); %Basophils 0.3 % (0.0-1.0); %Eosinophils 3.4 % (0.0-10.0); %Lymphocytes 28.6 % (21.0-51.0); %Monocytes 7.6 % (0.0-10.0); Hematocrit 27.7 % (42.0-52.0); Hemoglobin 9.1 g/dL (14.0-18.0); Mean Corpuscular HGB CONC 32.9 g/dL (32.0-36.0); Mean Platelet Volume 10.3 fL (7.4-10.4); Platelet Count 210 10x3/uL (130-400); RBC Distribution Width 12.5 % (11.5-14.5); Red Blood Cell (RBC) Count 3.03 mill/uL (4.70-6.10); White Blood Cell (WBC) Count 6.8 10x3/uL (4.8-10.8)
[2023-12-24 06:15] LABS: Mean Corpuscular Volume 91.4 fl (78.0-98.0)
[2023-12-24 06:32] LABS: Anion Gap 8 mmol/L (10-20); BUN (Urea Nitrogen) 17 mg/dL (8.9-20.6); Calc. Creatinine Clearance 76 mL/min (70-130); Calcium 8.3 mg/dL (7.8-10.44); Carbon Dioxide 25 mmol/L (22-29); Chloride 112 mmol/L (98-107); Estimated GFR 92; Glucose 205 mg/dL (70-105); Sodium 141 mmol/L (136-145)
[2023-12-24] MEDS: Insulin Glargine 30 UNITS/0.3 ML VIAL SC SCH ×2 (08:43→20:43)
[2023-12-24] MEDS ORDERED: Vancomycin (BATCH) 1.5 GM in Premix 1 BAG IVPB SCH (12:00)
[2023-12-24] MEDS: Vancomycin 1 GM in Premix 1 BAG IVPB SCH (13:13)
[2023-12-24] MEDS ORDERED: Bupivacaine PF 0.5% 30 ML VIAL ONE ×2 (14:21→14:41)
[2023-12-24] MEDS ORDERED: Bacitracin Zinc Ointment 30 gm TUBE ONE (14:21)
[2023-12-24] MEDS ORDERED: fentaNYL PF 100 MCG/2 ML SYRINGE ONE (14:28)
[2023-12-24] MEDS ORDERED: Lidocaine 1% PF 5 ML VIAL ONE (14:28)
[2023-12-24] MEDS ORDERED: PROPOFOL 40 ML ONE (14:28)
[2023-12-24] MEDS ORDERED: Tobramycin Sulfate 1.2 GM VIAL ONE (14:41)
[2023-12-24] MEDS ORDERED: Vancomycin 1 GM VIAL ONE (14:41)
[2023-12-24] MEDS ORDERED: PHENYLEPHRINE-NS 100 MCG/ML 10 ML SYRINGE ONE (15:03)
[2023-12-24] MEDS ORDERED: Phenylephrine 10 MG/ML VIAL ONE (15:17)
[2023-12-24] MEDS ORDERED: Ondansetron HCl/PF 4 MG/2 ML Vial IVP PRN (15:43)
[2023-12-24] MEDS ORDERED: HYDROmorphone 2 MG/ML VIAL SLOW IVP PRN (15:43)
[2023-12-24] MEDS ORDERED: PACU-Morphine 4MG/ML VIAL SLOW IVP PRN (15:43)
[2023-12-24] MEDS ORDERED: Promethazine HCl 25 MG/ML VIAL IM PRN (15:43)
[2023-12-24] MEDS: Lactated Ringer's 1,000 ML IV SCH (17:02)
[2023-12-24] MEDS: Multivit, Therapeutic 1 TAB PO SCH (20:43)
[2023-12-25] MEDS: HumaLOG 300 UNITS/3 ML VIAL SC PRN (05:17)
[2023-12-25 05:25] LABS: #Eosinphils 0.2 thou/uL (0.0-0.7); #Monocytes 0.3 thou/uL (0.11-0.59); %Basophils 0.3 % (0.0-1.0); %Eosinophils 3.1 % (0.0-10.0); %Lymphocytes 26.3 % (21.0-51.0); %Monocytes 5.2 % (0.0-10.0); %Neutrophils 64.9 % (42.0-75.0); Hematocrit 25.3 % (42.0-52.0); Hemoglobin 8.4 g/dL (14.0-18.0); Mean Corpuscular HGB CONC 33.2 g/dL (32.0-36.0); Mean Corpuscular Volume 90.4 fl (78.0-98.0); Mean Platelet Volume 10.2 fL (7.4-10.4); Platelet Count 191 10x3/uL (130-400); RBC Distribution Width 12.2 % (11.5-14.5); White Blood Cell (WBC) Count 6.2 10x3/uL (4.8-10.8)
[2023-12-25 05:49] LABS: Anion Gap 8 mmol/L (10-20); BUN (Urea Nitrogen) 15 mg/dL (8.9-20.6); Calc. Creatinine Clearance 72 mL/min (70-130); Calcium 7.9 mg/dL (7.8-10.44); Carbon Dioxide 24 mmol/L (22-29); Chloride 108 mmol/L (98-107); Estimated GFR 86; Glucose 260 mg/dL (70-105); Sodium 136 mmol/L (136-145)
[2023-12-25] MEDS ORDERED: Meperidine HCl/PF 25 MG (1 mL) VIAL SLOW IVP PRN (05:59)
[2023-12-25] MEDS: Morphine 4 MG/ML VIAL SLOW IVP PRN (06:08)
[2023-12-25 10:22] LABS: Vancomycin, Trough 22.4 ug/mL
[2023-12-25] MEDS: Insulin Glargine 30 UNITS/0.3 ML VIAL SC SCH (12:38)
[2023-12-25] MEDS: Acetaminophen 325 MG TAB PO PRN (16:42)
[2023-12-26 04:35] LABS: #Eosinphils 0.2 thou/uL (0.0-0.7); #Monocytes 0.4 thou/uL (0.11-0.59); #Neutrophils 2.1 thou/uL (1.40-6.50); %Basophils 0.4 % (0.0-1.0); %Eosinophils 3.9 % (0.0-10.0); %Lymphocytes 41.7 % (21.0-51.0); %Monocytes 8.2 % (0.0-10.0); %Neutrophils 45.6 % (42.0-75.0); Hematocrit 25.6 % (42.0-52.0); Hemoglobin 8.6 g/dL (14.0-18.0); Mean Corpuscular HGB CONC 33.6 g/dL (32.0-36.0); Mean Corpuscular Hemoglobin 29.8 pg (27.0-31.0); Mean Corpuscular Volume 88.6 fl (78.0-98.0); Mean Platelet Volume 10.1 fL (7.4-10.4); Platelet Count 178 10x3/uL (130-400); RBC Distribution Width 12.1 % (11.5-14.5); Red Blood Cell (RBC) Count 2.89 mill/uL (4.70-6.10); White Blood Cell (WBC) Count 4.7 10x3/uL (4.8-10.8)
[2023-12-26 04:57] LABS: Anion Gap 7 mmol/L (10-20); BUN (Urea Nitrogen) 10 mg/dL (8.9-20.6); Calc. Creatinine Clearance 84 mL/min (70-130); Calcium 8.5 mg/dL (7.8-10.44); Carbon Dioxide 29 mmol/L (22-29); Chloride 106 mmol/L (98-107); Estimated GFR 104; Glucose 190 mg/dL (70-105); Potassium 3.3 mmol/L (3.5-5.1); Sodium 139 mmol/L (136-145)
[2023-12-26] MEDS: HumaLOG 300 UNITS/3 ML VIAL SC PRN ×2 (06:18→23:33)
[2023-12-26] MEDS: Potassium Chloride 20 MEQ TAB PO SCH (08:33)
[2023-12-26] MEDS: Insulin Glargine 30 UNITS/0.3 ML VIAL SC SCH (08:36)
[2023-12-26] MEDS ORDERED: Insulin Glargine 30 UNITS/0.3 ML VIAL SC SCH ×2 (09:00)
[2023-12-26 23:57] LABS: Vancomycin, Trough 26.5 ug/mL
[2023-12-27] MEDS: Vancomycin 1 GM in Premix 1 BAG IVPB SCH (08:32)
[2023-12-27] MEDS: HYDROcodone/Acetaminophen 5/325 mg Tablet PO PRN (11:31)
[2023-12-27] MEDS: Potassium Chloride 20 MEQ TAB PO SCH (16:30)
[2023-12-27 18:01] LABS: #Eosinphils 0.1 thou/uL (0.0-0.7); #Monocytes 0.3 thou/uL (0.11-0.59); #Neutrophils 3.5 thou/uL (1.40-6.50); %Basophils 0.2 % (0.0-1.0); %Eosinophils 2.4 % (0.0-10.0); %Lymphocytes 22.7 % (21.0-51.0); %Monocytes 6.3 % (0.0-10.0); Hematocrit 27.4 % (42.0-52.0); Hemoglobin 9.3 g/dL (14.0-18.0); Mean Corpuscular HGB CONC 33.9 g/dL (32.0-36.0); Mean Corpuscular Hemoglobin 29.7 pg (27.0-31.0); Mean Corpuscular Volume 87.5 fl (78.0-98.0); Mean Platelet Volume 10.1 fL (7.4-10.4); Platelet Count 180 10x3/uL (130-400); RBC Distribution Width 12.1 % (11.5-14.5); Red Blood Cell (RBC) Count 3.13 mill/uL (4.70-6.10); White Blood Cell (WBC) Count 5.1 10x3/uL (4.8-10.8)
[2023-12-27 18:31] LABS: Anion Gap 9 mmol/L (10-20); BUN (Urea Nitrogen) 9 mg/dL (8.9-20.6); Calc. Creatinine Clearance 75 mL/min (70-130); Carbon Dioxide 29 mmol/L (22-29); Chloride 107 mmol/L (98-107); Estimated GFR 91; Glucose 100 mg/dL (70-105); Potassium 3.5 mmol/L (3.5-5.1); Sodium 141 mmol/L (136-145)
[2023-12-27] MEDS: Ondansetron PF 4 MG/2 ML Vial IVP PRN (20:57)
[2023-12-27] MEDS: Pantoprazole 40 MG VIAL IVP SCH (23:41)
[2023-12-28 06:30] LABS: Anion Gap 12 mmol/L (10-20); BUN (Urea Nitrogen) 12 mg/dL (8.9-20.6); Calc. Creatinine Clearance 52 mL/min (70-130); Calcium 9.2 mg/dL (7.8-10.44); Carbon Dioxide 25 mmol/L (22-29); Chloride 107 mmol/L (98-107); Estimated GFR 59; Glucose 71 mg/dL (70-105); Potassium 3.5 mmol/L (3.5-5.1); Sodium 140 mmol/L (136-145)
[2023-12-28 07:39] LABS: #Eosinphils 0.1 thou/uL (0.0-0.7); #Monocytes 0.7 thou/uL (0.11-0.59); #Neutrophils 6.1 thou/uL (1.40-6.50); %Basophils 0.2 % (0.0-1.0); %Eosinophils 0.8 % (0.0-10.0); %Lymphocytes 15.7 % (21.0-51.0); %Monocytes 8.7 % (0.0-10.0); %Neutrophils 74.4 % (42.0-75.0); Hematocrit 27.2 % (42.0-52.0); Hemoglobin 9.2 g/dL (14.0-18.0); Mean Corpuscular HGB CONC 33.8 g/dL (32.0-36.0); Mean Corpuscular Hemoglobin 30.5 pg (27.0-31.0); Mean Corpuscular Volume 90.1 fl (78.0-98.0); Platelet Count 195 10x3/uL (130-400); RBC Distribution Width 12.4 % (11.5-14.5); Red Blood Cell (RBC) Count 3.02 mill/uL (4.70-6.10); White Blood Cell (WBC) Count 8.3 10x3/uL (4.8-10.8)
[2023-12-28 09:01] LABS: Vancomycin, Trough 32.6 ug/mL
[2023-12-28] MEDS: Pantoprazole 40 MG VIAL IVP SCH (09:48)
[2023-12-28] MEDS ORDERED: Vancomycin 1 GM in Premix 1 BAG IVPB SCH (10:15)
[2023-12-28] MEDS ORDERED: Sodium Chloride 0.9% 1,000 ML IV SCH (17:30)
[2023-12-28 20:39] LABS: Vancomycin, Random 26.5 ug/mL (See Comment)
[2023-12-28] MEDS: NS 0.9% w/ 20 MEQ KCL 1,000 ML/1,000 ML BAG IV SCH (21:12)
[2023-12-29 05:14] LABS: #Eosinphils 0.1 thou/uL (0.0-0.7); #Monocytes 0.7 thou/uL (0.11-0.59); %Basophils 0.3 % (0.0-1.0); %Eosinophils 1.6 % (0.0-10.0); %Lymphocytes 29.6 % (21.0-51.0); %Monocytes 10.4 % (0.0-10.0); %Neutrophils 57.8 % (42.0-75.0); Hematocrit 25.6 % (42.0-52.0); Hemoglobin 8.5 g/dL (14.0-18.0); Mean Corpuscular HGB CONC 33.2 g/dL (32.0-36.0); Mean Corpuscular Hemoglobin 29.8 pg (27.0-31.0); Mean Corpuscular Volume 89.8 fl (78.0-98.0); Mean Platelet Volume 9.7 fL (7.4-10.4); Platelet Count 163 10x3/uL (130-400); RBC Distribution Width 12.4 % (11.5-14.5); Red Blood Cell (RBC) Count 2.85 mill/uL (4.70-6.10); White Blood Cell (WBC) Count 6.9 10x3/uL (4.8-10.8)
[2023-12-29 05:51] LABS: Anion Gap 11 mmol/L (10-20); BUN (Urea Nitrogen) 24 mg/dL (8.9-20.6); Calc. Creatinine Clearance 21 mL/min (70-130); Calcium 8.3 mg/dL (7.8-10.44); Carbon Dioxide 23 mmol/L (22-29); Chloride 108 mmol/L (98-107); Estimated GFR 20; Glucose 106 mg/dL (70-105); Sodium 138 mmol/L (136-145)
[2023-12-29 08:27] LABS: Vancomycin, Random 21.9 ug/mL (See Comment)
[2023-12-29] MEDS ORDERED: Vancomycin Dose by Levels Sliding Scale (Wt <71) FS SCH (09:00)
[2023-12-29] MEDS ORDERED: Vancomycin 1 GM/200 ML (FROZEN) BAG ONE (16:53)
[2023-12-29] MEDS: Sodium Chloride 0.9% 1,000 ML IV SCH ×2 (17:21→20:10)
[2023-12-29] MEDS ORDERED: Bupivacaine PF 0.5% 30 ML VIAL ONE (17:27)
[2023-12-29] MEDS ORDERED: Bacitracin Zinc Ointment 30 gm TUBE ONE (17:27)
[2023-12-29] MEDS ORDERED: SUCCINYLCHOLINE/SOD CL,ISO/PF 200 MG/10 ML SYRINGE FS ONE (17:40)
[2023-12-29] MEDS ORDERED: PROPOFOL 20 ML ONE (17:40)
[2023-12-29] MEDS ORDERED: Lidocaine 1% PF 5 ML VIAL ONE (17:40)
[2023-12-29] MEDS ORDERED: Ondansetron PF 4 MG/2 ML Vial ONE (17:40)
[2023-12-29] MEDS ORDERED: Metoclopramide HCl 10 MG (2 mL) VIAL ONE (17:40)
[2023-12-29] MEDS ORDERED: Ondansetron HCl/PF 4 MG/2 ML Vial IVP PRN (17:45)
[2023-12-29] MEDS ORDERED: Meperidine HCl/PF 25 MG/ML VIAL SLOW IVP PRN (17:45)
[2023-12-29] MEDS ORDERED: HYDROmorphone 2 MG/ML VIAL SLOW IVP PRN (17:45)
[2023-12-29] MEDS ORDERED: Promethazine HCl 25 MG/ML VIAL IM PRN (17:45)
[2023-12-29] MEDS ORDERED: Morphine Sulfate 2 MG/ML SYRINGE SLOW IVP PRN (17:45)
[2023-12-29] MEDS ORDERED: Tobramycin Sulfate 1.2 GM VIAL ONE (17:49)
[2023-12-29] MEDS ORDERED: PHENYLEPHRINE-NS 100 MCG/ML 10 ML SYRINGE ONE (18:04)
[2023-12-29] MEDS ORDERED: Meperidine HCl/PF 25 MG (1 mL) VIAL IM PRN (19:04)
[2023-12-29] MEDS ORDERED: Ketorolac Tromethamine 30 MG (1 mL) VIAL IVP PRN (19:04)
[2023-12-29 20:33] LABS: Vancomycin, Random 44.1 ug/mL (See Comment)
[2023-12-30 07:13] LABS: #Eosinphils 0.1 thou/uL (0.0-0.7); #Monocytes 0.6 thou/uL (0.11-0.59); #Neutrophils 4.5 thou/uL (1.40-6.50); %Basophils 0.1 % (0.0-1.0); %Monocytes 8.9 % (0.0-10.0); %Neutrophils 63.7 % (42.0-75.0); Hematocrit 27.2 % (42.0-52.0); Hemoglobin 8.9 g/dL (14.0-18.0); Mean Corpuscular HGB CONC 32.7 g/dL (32.0-36.0); Mean Corpuscular Hemoglobin 29.8 pg (27.0-31.0); Mean Platelet Volume 9.9 fL (7.4-10.4); Platelet Count 156 10x3/uL (130-400); RBC Distribution Width 12.7 % (11.5-14.5); Red Blood Cell (RBC) Count 2.99 mill/uL (4.70-6.10)
[2023-12-30 07:42] LABS: Anion Gap 12 mmol/L (10-20); BUN (Urea Nitrogen) 27 mg/dL (8.9-20.6); Calc. Creatinine Clearance 18 mL/min (70-130); Calcium 8.2 mg/dL (7.8-10.44); Carbon Dioxide 23 mmol/L (22-29); Chloride 110 mmol/L (98-107); Estimated GFR 16; Glucose 68 mg/dL (70-105); Potassium 3.9 mmol/L (3.5-5.1); Sodium 141 mmol/L (136-145)
[2023-12-30] MEDS ORDERED: Sodium Bicarbonate 2.5 MEQ/5 ML SDV ONE (07:51)
[2023-12-30] MEDS ORDERED: Lidocaine 1% PF 5 ML VIAL ONE (07:51)
[2023-12-30 11:26] LABS: Vancomycin, Trough 35.9 ug/mL
[2023-12-30 17:29] LABS: Vancomycin, Random 31.4 ug/mL (See Comment)
[2023-12-30] MEDS: HYDROcodone/Acetaminophen 5/325 mg Tablet PO PRN (20:38)
[2023-12-30] MEDS: CEFAZOLIN 1 GM in Sodium Chloride 0.9% 100 ML IVPB SCH (21:22)
[2023-12-31] MEDS: DAPTOmycin 500 MG VIAL SLOW IVP SCH (03:47)
[2023-12-31 04:43] LABS: #Eosinphils 0.1 thou/uL (0.0-0.7); #Monocytes 0.5 thou/uL (0.11-0.59); #Neutrophils 4.7 thou/uL (1.40-6.50); %Basophils 0.2 % (0.0-1.0); %Eosinophils 1.9 % (0.0-10.0); %Lymphocytes 16.8 % (21.0-51.0); %Monocytes 7.7 % (0.0-10.0); %Neutrophils 73.2 % (42.0-75.0); Hematocrit 24.2 % (42.0-52.0); Hemoglobin 8.1 g/dL (14.0-18.0); Mean Corpuscular HGB CONC 33.5 g/dL (32.0-36.0); Mean Corpuscular Hemoglobin 30.3 pg (27.0-31.0); Mean Corpuscular Volume 90.6 fl (78.0-98.0); Mean Platelet Volume 10.2 fL (7.4-10.4); Platelet Count 151 10x3/uL (130-400); RBC Distribution Width 12.5 % (11.5-14.5); Red Blood Cell (RBC) Count 2.67 mill/uL (4.70-6.10); White Blood Cell (WBC) Count 6.5 10x3/uL (4.8-10.8)
[2023-12-31 05:47] LABS: Anion Gap 9 mmol/L (10-20); BUN (Urea Nitrogen) 27 mg/dL (8.9-20.6); Calc. Creatinine Clearance 17 mL/min (70-130); Calcium 7.9 mg/dL (7.8-10.44); Carbon Dioxide 22 mmol/L (22-29); Chloride 112 mmol/L (98-107); Estimated GFR 15; Glucose 158 mg/dL (70-105); Potassium 4.1 mmol/L (3.5-5.1); Sodium 139 mmol/L (136-145)
[2023-12-31] MEDS: SODIUM CHLORIDE 0.9% IVPB SCH (10:04)
[2023-12-31] MEDS: DAPTOMYCIN IVPB SCH (10:04)
[2023-12-31] MEDS: EPOETIN ALFA-EPBX (ESRD) 10,000 UNITS/ML VIAL SC SCH (11:10)
[2024-01-01 05:45] LABS: #Monocytes 0.4 thou/uL (0.11-0.59); #Neutrophils 4.8 thou/uL (1.40-6.50); %Basophils 0.2 % (0.0-1.0); %Eosinophils 0.5 % (0.0-10.0); %Lymphocytes 15.9 % (21.0-51.0); %Monocytes 5.7 % (0.0-10.0); %Neutrophils 77.4 % (42.0-75.0); Hematocrit 28.3 % (42.0-52.0); Hemoglobin 9.5 g/dL (14.0-18.0); Mean Corpuscular HGB CONC 33.6 g/dL (32.0-36.0); Mean Corpuscular Volume 89.3 fl (78.0-98.0); Mean Platelet Volume 10.2 fL (7.4-10.4); Platelet Count 158 10x3/uL (130-400); RBC Distribution Width 12.7 % (11.5-14.5); Red Blood Cell (RBC) Count 3.17 mill/uL (4.70-6.10); White Blood Cell (WBC) Count 6.2 10x3/uL (4.8-10.8)
[2024-01-01 06:43] LABS: Anion Gap 14 mmol/L (10-20); BUN (Urea Nitrogen) 23 mg/dL (8.9-20.6); CK (CPK) 62 U/L (30-200); Calc. Creatinine Clearance 17 mL/min (70-130); Calcium 8.1 mg/dL (7.8-10.44); Carbon Dioxide 13 mmol/L (22-29); Chloride 117 mmol/L (98-107); Estimated GFR 16; Potassium 4.3 mmol/L (3.5-5.1); Sodium 140 mmol/L (136-145)
[2024-01-01 06:46] LABS: Glucose 38 mg/dL (70-105)
[2024-01-01] MEDS: Sodium Bicarbonate 150 MEQ in Dextrose 5% in Water 1,000 ML IV SCH ×2 (10:15→11:30)
[2024-01-01] MEDS: Bisacodyl 5 MG TAB PO PRN (21:20)
[2024-01-02 06:11] LABS: #Monocytes 0.4 thou/uL (0.11-0.59); #Neutrophils 4.6 thou/uL (1.40-6.50); %Basophils 0.3 % (0.0-1.0); %Eosinophils 0.3 % (0.0-10.0); %Lymphocytes 17.2 % (21.0-51.0); %Monocytes 5.9 % (0.0-10.0); Hematocrit 26.2 % (42.0-52.0); Mean Corpuscular HGB CONC 34.4 g/dL (32.0-36.0); Mean Corpuscular Hemoglobin 30.2 pg (27.0-31.0); Mean Corpuscular Volume 87.9 fl (78.0-98.0); Mean Platelet Volume 9.9 fL (7.4-10.4); Platelet Count 157 10x3/uL (130-400); RBC Distribution Width 12.8 % (11.5-14.5); Red Blood Cell (RBC) Count 2.98 mill/uL (4.70-6.10); White Blood Cell (WBC) Count 6.1 10x3/uL (4.8-10.8)
[2024-01-02 06:37] LABS: Anion Gap 10 mmol/L (10-20); BUN (Urea Nitrogen) 23 mg/dL (8.9-20.6); Calc. Creatinine Clearance 17 mL/min (70-130); Calcium 8.2 mg/dL (7.8-10.44); Carbon Dioxide 26 mmol/L (22-29); Chloride 109 mmol/L (98-107); Estimated GFR 16; Glucose 157 mg/dL (70-105); Potassium 3.7 mmol/L (3.5-5.1); Sodium 141 mmol/L (136-145)
[2024-01-02] MEDS: Simethicone Chewable 80 MG TAB PO PRN (08:59)
[2024-01-03 09:18] LABS: #Eosinphils 0.1 thou/uL (0.0-0.7); #Monocytes 0.4 thou/uL (0.11-0.59); #Neutrophils 3.9 thou/uL (1.40-6.50); %Basophils 0.5 % (0.0-1.0); %Eosinophils 2.4 % (0.0-10.0); %Lymphocytes 22.8 % (21.0-51.0); %Monocytes 7.2 % (0.0-10.0); %Neutrophils 66.9 % (42.0-75.0); Hematocrit 27.7 % (42.0-52.0); Hemoglobin 9.5 g/dL (14.0-18.0); Mean Corpuscular HGB CONC 34.3 g/dL (32.0-36.0); Mean Corpuscular Hemoglobin 29.9 pg (27.0-31.0); Mean Corpuscular Volume 87.1 fl (78.0-98.0); Mean Platelet Volume 9.4 fL (7.4-10.4); Platelet Count 184 10x3/uL (130-400); RBC Distribution Width 12.7 % (11.5-14.5); Red Blood Cell (RBC) Count 3.18 mill/uL (4.70-6.10); White Blood Cell (WBC) Count 5.9 10x3/uL (4.8-10.8)
[2024-01-03 09:41] LABS: Anion Gap 11 mmol/L (10-20); BUN (Urea Nitrogen) 31 mg/dL (8.9-20.6); Calc. Creatinine Clearance 19 mL/min (70-130); Calcium 8.2 mg/dL (7.8-10.44); Carbon Dioxide 27 mmol/L (22-29); Chloride 105 mmol/L (98-107); Estimated GFR 17; Glucose 63 mg/dL (70-105); Potassium 3.4 mmol/L (3.5-5.1); Sodium 140 mmol/L (136-145)
[2024-01-03] MEDS: Potassium Chloride 20 MEQ TAB PO SCH (11:32)
[2024-01-04 06:31] LABS: #Eosinphils 0.2 thou/uL (0.0-0.7); #Monocytes 0.5 thou/uL (0.11-0.59); #Neutrophils 3.9 thou/uL (1.40-6.50); %Basophils 0.1 % (0.0-1.0); %Eosinophils 3.3 % (0.0-10.0); %Lymphocytes 33.1 % (21.0-51.0); %Monocytes 7.4 % (0.0-10.0); %Neutrophils 55.8 % (42.0-75.0); Hemoglobin 9.8 g/dL (14.0-18.0); Mean Corpuscular HGB CONC 33.8 g/dL (32.0-36.0); Mean Corpuscular Hemoglobin 29.5 pg (27.0-31.0); Mean Corpuscular Volume 87.3 fl (78.0-98.0); Mean Platelet Volume 9.6 fL (7.4-10.4); Platelet Count 217 10x3/uL (130-400); RBC Distribution Width 12.7 % (11.5-14.5); Red Blood Cell (RBC) Count 3.32 mill/uL (4.70-6.10)
[2024-01-04 06:59] LABS: Anion Gap 10 mmol/L (10-20); BUN (Urea Nitrogen) 29 mg/dL (8.9-20.6); Calc. Creatinine Clearance 19 mL/min (70-130); Calcium 8.4 mg/dL (7.8-10.44); Carbon Dioxide 27 mmol/L (22-29); Chloride 102 mmol/L (98-107); Estimated GFR 18; Glucose 153 mg/dL (70-105); Potassium 3.5 mmol/L (3.5-5.1); Sodium 135 mmol/L (136-145)
[2024-01-05] MEDS: CEFAZOLIN 1 GM in Sodium Chloride 0.9% 100 ML IVPB SCH (03:30)
[2024-01-05 04:56] LABS: #Eosinphils 0.2 thou/uL (0.0-0.7); #Monocytes 0.7 thou/uL (0.11-0.59); #Neutrophils 3.8 thou/uL (1.40-6.50); %Basophils 0.3 % (0.0-1.0); %Eosinophils 2.4 % (0.0-10.0); %Lymphocytes 29.8 % (21.0-51.0); %Monocytes 10.2 % (0.0-10.0); %Neutrophils 57.1 % (42.0-75.0); Hematocrit 24.4 % (42.0-52.0); Hemoglobin 8.5 g/dL (14.0-18.0); Mean Corpuscular HGB CONC 34.8 g/dL (32.0-36.0); Mean Corpuscular Hemoglobin 30.5 pg (27.0-31.0); Mean Corpuscular Volume 87.5 fl (78.0-98.0); Mean Platelet Volume 9.5 fL (7.4-10.4); Platelet Count 205 10x3/uL (130-400); RBC Distribution Width 12.9 % (11.5-14.5); Red Blood Cell (RBC) Count 2.79 mill/uL (4.70-6.10); White Blood Cell (WBC) Count 6.6 10x3/uL (4.8-10.8)
[2024-01-05 05:21] LABS: Anion Gap 9 mmol/L (10-20); BUN (Urea Nitrogen) 29 mg/dL (8.9-20.6); Calc. Creatinine Clearance 22 mL/min (70-130); Calcium 8.1 mg/dL (7.8-10.44); Carbon Dioxide 28 mmol/L (22-29); Chloride 101 mmol/L (98-107); Estimated GFR 20; Potassium 2.8 mmol/L (3.5-5.1); Sodium 135 mmol/L (136-145)
[2024-01-05 05:23] LABS: Critical Call Chemistry ERS.KAO@0523; Glucose 51 mg/dL (70-105)
[2024-01-05] MEDS: Potassium Chloride 20 MEQ TAB PO SCH (08:26)
[2024-01-06 06:35] LABS: #Eosinphils 0.1 thou/uL (0.0-0.7); #Monocytes 0.5 thou/uL (0.11-0.59); #Neutrophils 3.8 thou/uL (1.40-6.50); %Basophils 0.4 % (0.0-1.0); %Eosinophils 2.5 % (0.0-10.0); %Lymphocytes 22.8 % (21.0-51.0); %Monocytes 8.3 % (0.0-10.0); %Neutrophils 65.8 % (42.0-75.0); Hematocrit 24.3 % (42.0-52.0); Hemoglobin 8.2 g/dL (14.0-18.0); Mean Corpuscular HGB CONC 33.7 g/dL (32.0-36.0); Mean Corpuscular Hemoglobin 29.5 pg (27.0-31.0); Mean Corpuscular Volume 87.4 fl (78.0-98.0); Mean Platelet Volume 9.6 fL (7.4-10.4); Platelet Count 215 10x3/uL (130-400); RBC Distribution Width 12.8 % (11.5-14.5); Red Blood Cell (RBC) Count 2.78 mill/uL (4.70-6.10); White Blood Cell (WBC) Count 5.7 10x3/uL (4.8-10.8)
[2024-01-06 06:55] LABS: Anion Gap 8 mmol/L (10-20); BUN (Urea Nitrogen) 26 mg/dL (8.9-20.6); Calc. Creatinine Clearance 23 mL/min (70-130); Calcium 7.6 mg/dL (7.8-10.44); Carbon Dioxide 30 mmol/L (22-29); Chloride 104 mmol/L (98-107); Estimated GFR 22; Glucose 70 mg/dL (70-105); Potassium 3.3 mmol/L (3.5-5.1); Sodium 139 mmol/L (136-145)
[2024-01-06 07:40] VITALS: BP 173/96; TEMP 98.1
[2024-01-06] MEDS ORDERED: Potassium Chloride 20 MEQ TAB PO SCH (11:45)
== END 2024-01-06 12:30 | disposition home or self-care (01) | DRG 477 ==
LOC: ERS 10:01 → T4-A 13:29
PROVIDERS: ADMIT Internal Medicine; ATTEND Internal Medicine
PROC: 0R9W0ZZ Drainage of Right Finger Phalangeal Joint, Open Approach (ICD-10-PCS; principal; 2023-12-24)
PROC: 0PBT0ZZ Excision of Right Finger Phalanx, Open Approach (ICD-10-PCS; 2023-12-24)
PROC: 05HY33Z Insertion of Infusion Device into Upper Vein, Percutaneous Approach (ICD-10-PCS; 2023-12-24)
PROC: 0PBT0ZX Excision of Right Finger Phalanx, Open Approach, Diagnostic (ICD-10-PCS; 2023-12-24)
PROC: 0RBW0ZZ Excision of Right Finger Phalangeal Joint, Open Approach (ICD-10-PCS; 2023-12-29)
PROC: 0PBT0ZZ Excision of Right Finger Phalanx, Open Approach (ICD-10-PCS; 2023-12-29)
DX: M00.9 Pyogenic arthritis, unspecified (principal); N17.0 Acute kidney failure with tubular necrosis; E87.1 Hypo-osmolality and hyponatremia; M86.8X8 Other osteomyelitis, other site; N18.4 Chronic kidney disease, stage 4 (severe); E10.69 Type 1 diabetes mellitus with other specified complication; Z89.511 Acquired absence of right leg below knee; Z88.7 Allergy status to serum and vaccine; Z79.4 Long term (current) use of insulin; Z79.899 Other long term (current) drug therapy; E87.6 Hypokalemia; E10.22 Type 1 diabetes mellitus with diabetic chronic kidney disease; D63.1 Anemia in chronic kidney disease
CPT/HCPCS: 36415; 36416; 36569; 80048; 80053; 80202; 82550; 85025; 86140; 87040; 87070; 87077; 87081; 87186; 87205; 88307; 88311; 96365; 96367; 97139; C1713; C9113; J0665; J0690; J0878; J1815; J2270; J2371; J2405; J2543; J2704; J2765; J3260; J3370; J3370-JW; J3480; J3490; J7050; J7070; J7120; Q5105